=== PATIENT | male | born 1950 | race Hispanic/Latino ===

== ENCOUNTER 2019-11-29 21:13 | Emergency (ER) | payer MEDICARE ==
[2019-11-29 21:56] LABS: Urine Blood TRACE (NEG); Urine Glucose TRACE (NEG); Urine Protein 1+ (NEG); Urine Specific Gravity 1.025 (1.005-1.030)
[2019-11-29 22:03] LABS: Urine Bacteria <20 /HPF (NONE SEEN); Urine Culture Reflex Order REFLEXED; Urine RBC <5 /HPF (NONE SEEN)
[2019-11-29 23:14] LABS: Absolute Lymphocytes (CBC) 1.9 K/uL (0.7-4.9); Basophils % 0.4 % (0-1.3); Hematocrit 40.1 % (39.6-49.0); Lymphocytes % 18.1 % (15.3-44.8); RBC Red Blood Cell Count 4.86 M/uL (4.33-5.43)
[2019-11-29 23:25] LABS: ALT/SGPT 15 U/L (12-78); AST/SGOT 12 U/L (15-37); Albumin 3.9 g/dL (3.4-5.0); Alkaline Phosphatase 86 U/L (45-117); BUN Blood Urea Nitrogen 15 mg/dL (7-18); Bicarbonate 27 mmol/L (21-32); Bilirubin Direct < 0.1 mg/dL (0-0.2); Bilirubin Total 0.2 mg/dL (0.2-1.0); Glucose Level 203 mg/dL (74-106); Lipase 120 U/L (73-393); Protein, Total 7.9 g/dL (6.4-8.2); Sodium Level 140 mmol/L (136-145)
--- NOTE | 2019-11-29 23:51 | ER ---
Nurse's Notes [facility] Name: Evans Espinosa Age: 69 yrs Sex: Male : 1950 Arrival Date: 11/29/2019 Time: 21:[address] Private MD: Camilla Jara C Diagnosis: Calculus of ureter Presentation: 11/28 21:25 Chief complaint: Patient states: LLQ pain radiating to the L flank and L Lower back x 3 ca1 days, off and on. History of kidney stones. Reports burning with urination. Denies fever. Coronavirus screen: Proceed with normal triage. Patient denies a cough. Patient denies shortness of breath or difficulty breathing. Patient denies measured and/or subjective temperature greater than 100.4F prior to today's visit. Patient denies travel on a cruise ship or to a country the [facility] currently lists as an affected area. Patient denies contact with known and/or suspected case of COVID-19. Ebola Screen: Patient negative for fever greater than or equal to 101.5 degrees Fahrenheit, and additional compatible Ebola Virus Disease symptoms Patient denies exposure to infectious person. Patient denies travel to an Ebola-affected area in the 21 days before illness onset. No symptoms or risks identified at this time. Initial Sepsis Screen: Does the patient meet any 2 criteria? No. Patient's initial sepsis screen is negative. Does the patient have a suspected source of infection? No. Patient's initial sepsis screen is negative. Risk Assessment: Do you want to hurt yourself or someone else? Patient reports no desire to harm self or others. Onset of symptoms was November 29, 2019. 21:25 Method Of Arrival: Ambulatory ca1 21:25 Acuity: MEÑO 3 ca1 Historical: - Allergies: 21:30 No Known Allergies; ca1 - Home Meds: 21:30 Lisinopril Oral [Active]; Metoprolol Tartrate Oral [Active]; Metformin Oral [Active]; ca1 amlodipine oral [Active]; Aspirin Oral [Active]; - PMHx: 21:30 Diabetes - NIDDM; Hypertension; ca1 - PSHx: 21:30 None; ca1 - Immunization history:: Adult Immunizations up to date, Pneumococcal vaccine is not up to date, Flu vaccine is up to date. - Social history:: Smoking status: Patient denies any tobacco usage or history of. Screenin:00 Abuse screen: Denies threats or abuse. Denies injuries from another. Nutritional ls4 screening: No deficits noted. Tuberculosis screening: No symptoms or risk factors identified. Fall Risk None identified. Assessment: 22:00 General: Appears in no apparent distress. comfortable, Behavior is calm, cooperative. ls4 Pain:. Pain: Complains of pain in left lower quadrant Pain currently is 7 out of 10 on a pain scale. Neuro: No deficits noted. Cardiovascular: No deficits noted. Respiratory: No deficits noted. GI: Bowel sounds present X 4 quads. Abd is soft and non tender X 4 quads. Reports lower abdominal pain, Patient currently denies diarrhea, intolerance of fluids, intolerance of food, nausea, vomiting. : No deficits noted. No signs and/or symptoms were reported regarding the genitourinary system. Derm: No deficits noted. No signs and/or symptoms reported regarding the dermatologic system. Musculoskeletal: No deficits noted. No signs and/or symptoms reported regarding the musculoskeletal system. 23:00 Reassessment: Patient appears in no apparent distress at this time. Patient and/or ls4 family updated on plan of care and expected duration. Pain level reassessed. Patient is alert, oriented x 3, equal unlabored respirations, skin warm/dry/pink. Vital Signs: 21:25 BP 146 / 90; Pulse 83; Resp 17 S; Temp 97(TE); Pulse Ox 100% on R/A; Weight 97.98 kg ca1 (R); Height 5 ft. 9 in. (175.26 cm) (R); Pain 8/10; 22:30 BP 146 / 88; Pulse 74; Resp 16; Pulse Ox 99% on R/A; Pain 7/10; ls4 23:24 BP 153 / 79; Pulse 77; Resp 16; Temp 97.4(O); Pulse Ox 99% on R/A; Pain 7/10; ls4 21:25 Body Mass Index 31.90 (97.98 kg, 175.26 cm) ca1 ED Course: 21:18 Patient arrived in ED. mr 21:18 Camilla Jara MD is Private Physician. mr 21:22 Anuj Vizcaino MD is Attending Physician. tw4 21:28 Triage completed. ca1 21:30 Arm band placed on right wrist. ca1 21:45 Urine collected: clean catch specimen, cloudy, Amount Voided: 90mL Sent to lab. ca1 21:46 Urine Microscopic Only Sent. ca1 21:59 Urine Microscopic Only Sent. ca1 22:00 Patient has correct armband on for positive identification. Bed in low position. Call ls4 light in reach. Side rails up X 1. cafeteria cook on. Pulse ox on. NIBP on. Lights dimmed. Verbal reassurance given. Diet: Patient is NPO. 22:04 Sisi Pérez, RN is Primary Nurse. ls4 22:17 CT completed. Patient tolerated procedure well. Patient moved back from CT. bq 22:35 CT Stone Protocol In Process Unspecified. EDMS 23:10 No provider procedures requiring assistance completed. Inserted saline lock: 20 gauge ls4 in right antecubital area, using aseptic technique. Blood collected. 23:18 Basic Metabolic Panel Sent. ls4 23:19 Urine Culture Sent. ls4 23:50 Camilla Jara MD is Referral Physician. tw4 04 00:15 IV discontinued, intact, bleeding controlled, No redness/swelling at site. Pressure ls4 dressing applied. Administered Medications: 00:02 Drug: TORadol 30 mg Route: IVP; Site: left antecubital; ls4 00:22 Follow up: Response: No adverse reaction; Marked relief of symptoms ls4 Outcome: 11/28 23:50 Discharge ordered by . tw4 04/06 00:16 Patient left the ED. ls4 00:16 Condition: good ls4 00:16 Discharged to home ambulatory. ls4 00:16 Discharge instructions given to patient, Instructed on discharge instructions, follow up and referral plans. medication usage, Demonstrated understanding of instructions, follow-up care, medications. Signatures: Dispatcher [employer] [facility] Kate Bill mr ReddingMarivel Terrence, MD MD tw4 Sisi Pérez, RN RN ls4 Izabela Ross RN RN ca1
--- NOTE | 2019-11-29 23:51 | EDPHYS ---
Physician Documentation [facility] Name: Evans Espinosa Age: 69 yrs Sex: Male : 1950 Arrival Date: 11/29/2019 Time: 21:[address] Private MD: Camilla Jara C ED Physician Anuj Vizcaino HPI: 11/28 23:20 This 69 yrs old Male presents to ER via Ambulatory with complaints of Possible tw4 Kidney Stone. 23:20 The patient complains of pain in the left low back. The pain radiates to the left lower tw4 quadrant. Onset: The symptoms/episode began/occurred 3 day(s) ago. Modifying factors: The symptoms are alleviated by nothing. the symptoms are aggravated by nothing. Associated signs and symptoms: The patient has no apparent associated signs or symptoms. Severity of pain: At its worst the pain was moderate in the emergency department the pain has resolved. The patient has not experienced similar symptoms in the past. Historical: - Allergies: 21:30 No Known Allergies; ca1 - Home Meds: 21:30 Lisinopril Oral [Active]; Metoprolol Tartrate Oral [Active]; Metformin Oral [Active]; ca1 amlodipine oral [Active]; Aspirin Oral [Active]; - PMHx: 21:30 Diabetes - NIDDM; Hypertension; ca1 - PSHx: 21:30 None; ca1 - Immunization history:: Adult Immunizations up to date, Pneumococcal vaccine is not up to date, Flu vaccine is up to date. - Social history:: Smoking status: Patient denies any tobacco usage or history of. ROS: 23:44 Constitutional: Negative for fever, chills, and weight loss, Eyes: Negative for injury, tw4 pain, redness, and discharge, Cardiovascular: Negative for chest pain, palpitations, and edema, Respiratory: Negative for shortness of breath, cough, wheezing, and pleuritic chest pain, Skin: Negative for injury, rash, and discoloration, Neuro: Negative for headache, weakness, numbness, tingling, and seizure. 23:44 Abdomen/GI: Positive for abdominal pain, Negative for nausea and vomiting, nausea, vomiting, and diarrhea, nausea. 23:44 Back: Positive for flank pain, on the left. Exam: 23:43 Constitutional: This is a well developed, well nourished patient who is awake, alert, tw4 and in no acute distress. Head/Face: Normocephalic, atraumatic. Chest/axilla: Normal chest wall appearance and motion. Nontender with no deformity. No lesions are appreciated. Cardiovascular: Regular rate and rhythm with a normal S1 and S2. No gallops, murmurs, or rubs. Normal PMI, no JVD. No pulse deficits. Respiratory: Lungs have equal breath sounds bilaterally, clear to auscultation and percussion. No rales, rhonchi or wheezes noted. No increased work of breathing, no retractions or nasal flaring. Abdomen/GI: Soft, non-tender, with normal bowel sounds. No distension or tympany. No guarding or rebound. No evidence of tenderness throughout. 23:43 MS/ Extremity: Pulses equal, no cyanosis. Neurovascular intact. Full, normal range of motion. Neuro: Awake and alert, GCS 15, oriented to person, place, time, and situation. Cranial nerves II-XII grossly intact. Motor strength 5/5 in all extremities. Sensory grossly intact. Cerebellar exam normal. Normal gait. 23:43 Back: CVA tenderness, that is mild, is noted on the left. Vital Signs: 21:25 BP 146 / 90; Pulse 83; Resp 17 S; Temp 97(TE); Pulse Ox 100% on R/A; Weight 97.98 kg ca1 (R); Height 5 ft. 9 in. (175.26 cm) (R); Pain 8/10; 22:30 BP 146 / 88; Pulse 74; Resp 16; Pulse Ox 99% on R/A; Pain 7/10; ls4 23:24 BP 153 / 79; Pulse 77; Resp 16; Temp 97.4(O); Pulse Ox 99% on R/A; Pain 7/10; ls4 21:25 Body Mass Index 31.90 (97.98 kg, 175.26 cm) ca1 MDM: 22:00 Patient medically screened. 11/28 21:23 Order name: Basic Metabolic Panel 11/28 21:23 Order name: CBC with Diff; Complete Time: 23:44 11/28 23:47 Interpretation: Normal except: HGB 13.3; MATEO% 75.6. 11/28 21:23 Order name: Creatinine for Radiology; Complete Time: 23:44 4 11/28 23:47 Interpretation: Normal except: CRE 1.61; GFR 43. tw4 11/28 21:23 Order name: Hepatic Function; Complete Time: 23:44 tw4 11/28 23:47 Interpretation: Normal except: AST 12; GLOB 4.0; A/G 1.0. tw4 11/28 21:23 Order name: Lipase; Complete Time: 23:44 tw 11/28 23:48 Interpretation: Within normal limits: LIP 120. tw4 11/28 21:23 Order name: Basic Metabolic Panel; Complete Time: 23:44 EDMS 11/28 23:47 Interpretation: Normal except: GLUC 203; CRE 1.64; GFR 42. tw 11/28 21:23 Order name: IV Saline Lock; Complete Time: 23:18 [facility] 11/28 21:23 Order name: Labs collected and sent; Complete Time: 23:18 [facility] 11/28 21:23 Order name: CT Stone Protocol [facility] 11/28 21:45 Order name: Urine Dipstick-Ancillary (obtain specimen); Complete Time: 21:45 ca1 11/28 21:45 Order name: Urine Microscopic Only; Complete Time: 22:23 ca1 11/28 22:23 Interpretation: Normal except: UWBC 10-20. [facility] 11/28 21:47 Order name: Urine Dipstick--Ancillary (enter results); Complete Time: 23:44 ar5 11/28 23:47 Interpretation: Normal except: UBLD TRACE; UPROT 1+; UESTR 1+. [facility] 11/28 22:05 Order name: Urine Culture EDMS Administered Medications: 11/29 00:02 Drug: TORadol 30 mg Route: IVP; Site: left antecubital; ls4 00:22 Follow up: Response: No adverse reaction; Marked relief of symptoms ls4 Disposition: 11/29/19 23:50 Discharged to Home. Impression: Calculus of ureter. - Condition is Stable. - Discharge Instructions: Renal Colic, Kidney Stones, [id number]. - Prescriptions for Ibuprofen 800 mg Oral Tablet - take 1 tablet by ORAL route every 8 hours As needed take with food; 30 tablet. Tylenol- Codeine #3 300-30 mg Oral Tablet - take 2 tablet by ORAL route every 6 hours As needed; 30 tablet. Zofran 4 mg Oral Tablet - take 1 tablet by ORAL route every 12 hours As needed; 6 tablet. Flomax 0.4 mg Oral Capsule, Sust. Release 24 hr - take 1 capsule by ORAL route once daily 1/2 hour following the same meal each day; 30 capsule. - Medication Reconciliation Form, Thank You Letter, Antibiotic Education, Prescription Opioid Use form. - Follow up: Camilla Jara MD; When: Upon discharge from the Emergency Department; Reason: Recheck today's complaints, Continuance of care, Re-evaluation by your physician. - Problem is new. - Symptoms have improved. Signatures: Dispatcher [employer] EDMS Anuj Vizcaino MD MD tw4 Sisi Pérez RN RN ls4 Izabela Ross RN RN ca1 Corrections: (The following items were deleted from the chart) 11/28 23:44 23:20 Constitutional: Negative for fever, chills, and weight loss, Eyes: Negative for tw4 injury, pain, redness, and discharge, Cardiovascular: Negative for chest pain, palpitations, and edema, Respiratory: Negative for shortness of breath, cough, wheezing, and pleuritic chest pain, Abdomen/GI: Negative for abdominal pain, nausea, vomiting, diarrhea, and constipation, Back: Negative for injury and pain, MS/Extremity: Negative for injury and deformity, Skin: Negative for injury, rash, and discoloration, tw4 11/29 00:16 11/28 23:50 11/29/2019 23:50 Discharged to Home. Impression: Calculus of ureter. ls4 Condition is Stable. Forms are Medication Reconciliation Form, Thank You Letter, Antibiotic Education, Prescription Opioid Use. Follow up: Camilla Jara; When: Upon discharge from the Emergency Department; Reason: Recheck today's complaints, Continuance of care, Re-evaluation by your physician. Problem is new. Symptoms have improved. tw4
[2019-11-30] MEDS ORDERED: KETOROLAC 30 MG/ML INJ ONE (00:02)
[2019-11-30 00:53] VITALS: O2SAT 99
[2019-11-30 00:54] VITALS: BP 153/79; TEMP 97.4
--- NOTE | 2019-11-30 11:07 | RAD REPORT ---
EXAM DESCRIPTION: Stone Protocol CLINICAL HISTORY: 69 years Male ABD PAIN COMPARISON: None. TECHNIQUE: Contiguous axial images obtained through the abdomen and pelvis following IV contrast. Re formatted images obtained. This exam was performed according to our department optimization program which includes automated exp osure control, adjustment of the mA and/or kv according to patient size and/or use of iterative recon struction technique. FINDINGS: Nodular lesion in the mid left lung measuring 0.45 cm in mean diameter. This is visualized on axial i mage . Small hiatal hernia. The liver appears unremarkable. The spleen and pancreas appear unremarkable. No adrenal masses. There is mild left hydronephrosis and hydroureter. There is a 0.4 cm calculus in the left lower urete r. There are small bilateral nonobstructing renal calculi. The gallbladder is visualized. Mild atherosclerotic calcifications. No aneurysmal dilatation of the aorta. No bowel obstruction. The appendix appears unremarkable. No significant free pelvic fluid. There is wall thickening in the urinary bladder which could b e from chronic bladder outlet obstruction. Clinical and laboratory correlation recommended to exclude the possibility of cystitis. Small fat-containing left inguinal hernia. Bilateral pars defects at L5-S1. IMPRESSION: There is mild left hydronephrosis and hydroureter with a 0.4 cm calculus in the left lower ureter. There are bilateral nonobstructing renal calculi. There is wall thickening in the urinary bladder which could be from chronic outlet obstruction. Clini sharita and laboratory correlation recommended to exclude the possibility of cystitis. 4.5 mm solid pulmonary nodule detected on incomplete chest CT. No routine follow-up imaging is recomm ended. These guidelines do not apply to immunocompromised patients and patients with cancer. Follow up in pa tients with significant comorbidities as clinically warranted. For lung cancer screening, adhere to L emilia-RADS guidelines. Reference: Radiology. 2017; 284(1):228-43. Electronically signed by: Jason Summers MD 11/29/2019 10:52 PM CDT Due to temporary technical issues with the PACS/Fluency reporting system, reports are being signed by the in house radiologist as a courtesy to ensure prompt reporting. The interpreting radiologist is f kirkly responsible for the content of the report.
== END 2019-11-30 00:16 | disposition home or self-care (01) ==
LOC: ER 21:13
DX: N20.1 Calculus of ureter (principal); I10 Essential (primary) hypertension; E11.9 Type 2 diabetes mellitus without complications; Z79.82 Long term (current) use of aspirin
CPT/HCPCS: 36415; 74176; 76377; 80048; 80076; 81003; 81015; 83690; 85025; 87086; 87088; 96374; 99285

== ENCOUNTER 2020-06-09 22:42 | Emergency (ER) | payer MEDICARE ==
--- NOTE | 2020-06-09 23:14 | ER ---
Nurse's Notes [facility] Name: Evans Espinosa Age: 69 yrs Sex: Male : 1950 Arrival Date: 06/09/2020 Time: 22:45 Bed 13 Private MD: Diagnosis: Zoster [herpes zoster];Zoster without complications;Type 2 diabetes mellitus Presentation: 06/09 22:57 Chief complaint: Patient states: he is having abdominal pain and burning on left side bb of abdomen and left side of back with a small cluster of vesicles on the back x 2 days. Coronavirus screen: At this time, the client does not indicate any symptoms associated with coronavirus-19. Ebola Screen: No symptoms or risks identified at this time. Initial Sepsis Screen: Does the patient meet any 2 criteria? No. Patient's initial sepsis screen is negative. Does the patient have a suspected source of infection? No. Patient's initial sepsis screen is negative. Risk Assessment: Do you want to hurt yourself or someone else? Patient reports no desire to harm self or others. Onset of symptoms was June 07, 2020. 22:57 Method Of Arrival: Ambulatory bb 22:57 Acuity: MEÑO 3 bb Historical: - Allergies: 23:01 No Known Allergies; bb - Home Meds: 23:01 amlodipine oral [Active]; Aspirin Oral [Active]; lisinopril Oral [Active]; Metformin bb Oral [Active]; Metoprolol Tartrate Oral [Active]; insulin [Active]; - PMHx: 23:01 Diabetes - NIDDM; Hypertension; bb - Immunization history:: Adult Immunizations up to date. - Social history:: Smoking status: Patient denies any tobacco usage or history of. - Family history:: not pertinent. Screenin:21 Abuse screen: Denies threats or abuse. Denies injuries from another. Nutritional wh screening: No deficits noted. Tuberculosis screening: No symptoms or risk factors identified. Fall Risk None identified. Assessment: 23:10 General: Appears in no apparent distress. Behavior is calm, cooperative, appropriate wh for age. Pain: Complains of pain in posterior aspect of left lateral abdomen and anterior aspect of left lateral abdomen. Neuro: Level of Consciousness is awake, alert, obeys commands, Oriented to person, place, time, situation, Appropriate for age. Cardiovascular: Capillary refill < 3 seconds. Respiratory: Airway is patent Respiratory effort is even, unlabored, Respiratory pattern is regular, symmetrical. GI: Bowel sounds present X 4 quads. Abd is soft and non tender. : No signs and/or symptoms were reported regarding the genitourinary system. EENT: No signs and/or symptoms were reported regarding the EENT system. Derm: Skin is intact, is healthy with good turgor, Skin is pink, warm \T\ dry. normal, Rash noted that is vesicular, on posterior aspect of left lateral abdomen and anterior aspect of left lateral abdomen. Musculoskeletal: Circulation, motion, and sensation intact. Vital Signs: 22:57 BP 141 / 90; Pulse 65; Resp 16 S; Temp 97.9(O); Pulse Ox 99% on R/A; Weight 93.44 kg bb (R); Height 5 ft. 9 in. (175.26 cm) (R); Pain 7/10; 22:57 Body Mass Index 30.42 (93.44 kg, 175.26 cm) ED Course: 22:45 Patient arrived in ED. cl3 22:57 Chacorta Newton MD is Attending Physician. [facility] 23:00 Triage completed. 23:01 Arm band placed on Patient placed in an exam room, on a stretcher, on pulse oximetry. Family accompanied patient. 23:07 William Alegria is Primary Nurse. 23:12 Dieudonne Abernathy MD is Referral Physician. [facility] 23:22 Patient has correct armband on for positive identification. Bed in low position. Call light in reach. Side rails up X 1. Pulse ox on. NIBP on. 23:22 No provider procedures requiring assistance completed. Patient did not have IV access during this emergency room visit. Administered Medications: 23:20 Drug: [place] (7.5 mg-325 mg) 1 tabs {Note: RASS 0.} Route: PO; 23:20 Drug: valACYclovir 1000 mg Route: PO; Outcome: 23:13 Discharge ordered by . [facility] 23:22 Discharged to home ambulatory, with family. 23:22 Condition: stable 23:22 Discharge instructions given to patient, family, Instructed on discharge instructions, follow up and referral plans. no drinking with medication, no driving heavy equipment, medication usage, POC Demonstrated understanding of instructions, follow-up care, medications, POC Prescriptions given X 3. 23:25 Patient left the ED. bb Signatures: Chacorta Newton MD MD cha Ballard, Brenda, RN RN William Tobar Charde cl3
--- NOTE | 2020-06-09 23:14 | EDPHYS ---
Physician Documentation [facility] Name: Evans Espinosa Age: 69 yrs Sex: Male : 1950 Arrival Date: 06/09/2020 Time: 22:45 Bed 13 Private MD: ED Physician Chacorta Newton HPI: 06/09 23:08 This 69 yrs old Male presents to ER via Ambulatory with complaints of yolande Abdominal Pain, Rash. 23:08 The patient's rash thought to be caused by an unknown cause. The rash is located on the yolande left low back. The rash can be described as vesicular. Onset: The symptoms/episode began/occurred 3 day(s) ago. Associated signs and symptoms: Pertinent positives: burning sensation. Severity of symptoms: At their worst the symptoms were mild in the emergency department the symptoms are unchanged. Treatment given at home: none. The patient has not experienced similar symptoms in the past. Historical: - Allergies: 23:01 No Known Allergies; bb - Home Meds: 23:01 amlodipine oral [Active]; Aspirin Oral [Active]; lisinopril Oral [Active]; Metformin bb Oral [Active]; Metoprolol Tartrate Oral [Active]; insulin [Active]; - PMHx: 23:01 Diabetes - NIDDM; Hypertension; bb - Immunization history:: Adult Immunizations up to date. - Social history:: Smoking status: Patient denies any tobacco usage or history of. - Family history:: not pertinent. ROS: 23:08 Constitutional: Negative for fever, chills, and weight loss, Eyes: Negative for injury, yolande pain, redness, and discharge, ENT: Negative for injury, pain, and discharge, Neck: Negative for injury, pain, and swelling, Cardiovascular: Negative for chest pain, palpitations, and edema, Respiratory: Negative for shortness of breath, cough, wheezing, and pleuritic chest pain, Abdomen/GI: Negative for abdominal pain, nausea, vomiting, diarrhea, and constipation, Back: Negative for injury and pain, : Negative for injury, bleeding, discharge, and swelling, MS/Extremity: Negative for injury and deformity, Neuro: Negative for headache, weakness, numbness, tingling, and seizure, Psych: Negative for depression, anxiety, suicide ideation, homicidal ideation, and hallucinations, Allergy/Immunology: Negative for hives, rash, and allergies, Endocrine: Negative for neck swelling, polydipsia, polyuria, polyphagia, and marked weight changes, Hematologic/Lymphatic: Negative for swollen nodes, abnormal bleeding, and unusual bruising. 23:08 Skin: Positive for rash, of the anterior aspect of left lateral abdomen, posterior aspect of left lateral abdomen and left lower quadrant. Exam: 23:08 Constitutional: This is a well developed, well nourished patient who is awake, alert, yolande and in no acute distress. Head/Face: Normocephalic, atraumatic. Eyes: Pupils equal round and reactive to light, extra-ocular motions intact. Lids and lashes normal. Conjunctiva and sclera are non-icteric and not injected. Cornea within normal limits. Periorbital areas with no swelling, redness, or edema. ENT: Nares patent. No nasal discharge, no septal abnormalities noted. Tympanic membranes are normal and external auditory canals are clear. Oropharynx with no redness, swelling, or masses, exudates, or evidence of obstruction, uvula midline. Mucous membranes moist. Neck: Trachea midline, no thyromegaly or masses palpated, and no cervical lymphadenopathy. Supple, full range of motion without nuchal rigidity, or vertebral point tenderness. No Meningismus. Chest/axilla: Normal chest wall appearance and motion. Nontender with no deformity. No lesions are appreciated. Cardiovascular: Regular rate and rhythm with a normal S1 and S2. No gallops, murmurs, or rubs. Normal PMI, no JVD. No pulse deficits. Respiratory: Lungs have equal breath sounds bilaterally, clear to auscultation and percussion. No rales, rhonchi or wheezes noted. No increased work of breathing, no retractions or nasal flaring. Abdomen/GI: Soft, non-tender, with normal bowel sounds. No distension or tympany. No guarding or rebound. No evidence of tenderness throughout. Back: No spinal tenderness. No costovertebral tenderness. Full range of motion. Male : Normal genitalia with no discharge or lesions. MS/ Extremity: Pulses equal, no cyanosis. Neurovascular intact. Full, normal range of motion. Neuro: Awake and alert, GCS 15, oriented to person, place, time, and situation. Cranial nerves II-XII grossly intact. Motor strength 5/5 in all extremities. Sensory grossly intact. Cerebellar exam normal. Normal gait. Psych: Awake, alert, with orientation to person, place and time. Behavior, mood, and affect are within normal limits. 23:08 Skin: zoster, on the posterior aspect of left lateral abdomen and left lower quadrant. Vital Signs: 22:57 BP 141 / 90; Pulse 65; Resp 16 S; Temp 97.9(O); Pulse Ox 99% on R/A; Weight 93.44 kg bb (R); Height 5 ft. 9 in. (175.26 cm) (R); Pain 7/10; 22:57 Body Mass Index 30.42 (93.44 kg, 175.26 cm) bb MDM: 22:58 Patient medically screened. yolande 23:10 Differential diagnosis: impetigo, varicella. Data reviewed: vital signs, nurses notes. 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 rate is 65 beats/min, rhythm is regular, Pulse oximetry: on room air is 99 %. Counseling: I had a detailed discussion with the patient and/or guardian regarding: the historical points, exam findings, and any diagnostic results supporting the discharge/admit diagnosis, the need for outpatient follow up, for definitive care, an computer systems information director, a neurologist. Administered Medications: 23:20 Drug: Rowan (7.5 mg-325 mg) 1 tabs {Note: RASS 0.} Route: PO; 23:20 Drug: valACYclovir 1000 mg Route: PO; Disposition: 06/09/20 23:13 Discharged to Home. Impression: Zoster [herpes zoster], Zoster without complications, Type 2 diabetes mellitus. - Condition is Stable. - Discharge Instructions: Type 2 Diabetes Mellitus, Diagnosis, Adult, Shingles, Shingles, [id number], Type 2 Diabetes Mellitus, Diagnosis, Adult, [id number]. - Prescriptions for gabapentin 300 mg Oral capsule - take 2 capsule by ORAL route 2 times per day; 30 capsule. Tylenol- Codeine #3 300-30 mg Oral Tablet - take 2 tablets by ORAL route every 6 hours As needed; 20 tablet. Valtrex 1 g Oral Tablet - take 1 tablet by ORAL route every 8 hours for 7 days; 21 tablet. - Medication Reconciliation Form, Thank You Letter, Antibiotic Education, Prescription Opioid Use form. - Follow up: Private Physician; When: 2 - 3 days; Reason: Recheck today's complaints, Continuance of care, Re-evaluation by your physician. Follow up: Dieudonne Abernathy MD; When: 2 - 3 days; Reason: Recheck today's complaints, Re-evaluation by your physician. - Problem is new. - Symptoms have improved. Signatures: Chacorta Newton MD MD cha Ballard, Brenda, RN RN bb William Alegria Corrections: (The following items were deleted from the chart) 23:14 23:13 06/09/2020 23:13 Discharged to Home. Impression: Zoster [herpes zoster]; Zoster yolande without complications. Condition is Stable. Forms are Medication Reconciliation Form, Thank You Letter, Antibiotic Education, Prescription Opioid Use. Follow up: Private Physician; When: 2 - 3 days; Reason: Recheck today's complaints, Continuance of care, Re-evaluation by your physician. Follow up: Dieudonne Abernathy; When: 2 - 3 days; Reason: Recheck today's complaints, Re-evaluation by your physician. Problem is new. Symptoms have improved. [facility] 23:25 23:14 06/09/2020 23:13 Discharged to Home. Impression: Zoster [herpes zoster]; Zoster bb without complications; Type 2 diabetes mellitus. Condition is Stable. Forms are Medication Reconciliation Form, Thank You Letter, Antibiotic Education, Prescription Opioid Use. Follow up: Private Physician; When: 2 - 3 days; Reason: Recheck today's complaints, Continuance of care, Re-evaluation by your physician. Follow up: Dieudonne Abernathy; When: 2 - 3 days; Reason: Recheck today's complaints, Re-evaluation by your physician. Problem is new. Symptoms have improved. yolande
[2020-06-09] MEDS ORDERED: HYDROCODONE/APAP 7.5/325 MG TAB ONE (23:26)
[2020-06-09] MEDS ORDERED: VALACYCLOVIR 500 MG TAB ONE (23:27)
[2020-06-09 23:48] VITALS: BP 141/90; TEMP 97.9; O2SAT 99
== END 2020-06-09 23:25 | disposition home or self-care (01) ==
LOC: ER 22:42
DX: B02.9 Zoster without complications (principal); E11.9 Type 2 diabetes mellitus without complications; I10 Essential (primary) hypertension; Z79.82 Long term (current) use of aspirin
CPT/HCPCS: 99283

== ENCOUNTER 2021-03-28 20:33 | Inpatient (IN) | payer MEDICARE ==
[2021-03-28 21:22] LABS: Absolute Lymphocytes (CBC) 1.3 K/uL (0.7-4.9); Basophils % 0.3 % (0-1.3); Hematocrit 35.9 % (39.6-49.0); Lymphocytes % 26.1 % (15.3-44.8); MPV 8.2 fL (7.6-11.3); Protime INR 1.1; RBC Red Blood Cell Count 4.32 M/uL (4.33-5.43)
--- NOTE | 2021-03-28 21:25 | RAD REPORT ---
EXAM DESCRIPTION: CT - Head Brain Wo Cont - 03/28/2021 9:18 pm CLINICAL HISTORY: Syncope COMPARISON: None TECHNIQUE: Computed axial tomography of the head was obtained. IV contrast was not requested. All CT scans are performed using dose optimization technique as appropriate and may include automated exposure control or mA/KV adjustment according to patient size. FINDINGS: An intracranial bleed is not seen . The ventricles are normal in caliber. No extra-axial fluid collection is noted. Bilateral basal ganglia calcifications likely idiopathic Fluid within the sinuses/ mastoids is not seen. IMPRESSION: No acute intracranial abnormality is seen. If patient's symptoms persist MRI of the bra in would be recommended.
[2021-03-28 21:28] LABS: ALT/SGPT 87 U/L (12-78); AST/SGOT 91 U/L (15-37); Albumin 3.2 g/dL (3.4-5.0); Alkaline Phosphatase 61 U/L (45-117); BUN Blood Urea Nitrogen 28 mg/dL (7-18); Bicarbonate 22 mmol/L (21-32); Bilirubin Direct 0.1 mg/dL (0-0.2); Bilirubin Total 0.3 mg/dL (0.2-1.0); Glucose Level 176 mg/dL (74-106); Lipase 401 U/L (73-393); Magnesium 1.8 mg/dL (1.8-2.4); NT PRO-BNP 65 pg/mL (<125); Potassium 4.4 mmol/L (3.5-5.1); Protein, Total 7.4 g/dL (6.4-8.2); Sodium Level 136 mmol/L (136-145); Troponin (Emerg Dept Use Only) < 0.02 ng/mL (0.0-0.045)
--- NOTE | 2021-03-28 21:43 | RAD REPORT ---
EXAM DESCRIPTION: Domenico Single View03/28/2021 9:00 pm CLINICAL HISTORY: Fever COMPARISON: none FINDINGS: [id number] bilateral pulmonary opacities. Heart is normal size IMPRESSION: [id number] bilateral pulmonary opacities may represent pneumonia
[2021-03-28] MEDS ORDERED: NA CHLORIDE 0.9% 1,000 ML ONE (22:50)
[2021-03-28] MEDS ORDERED: ONDANSETRON 4 MG/2 ML VIAL ONE (22:50)
[2021-03-28] MEDS ORDERED: ACETAMINOPHEN 325 MG TABLET ONE (22:50)
[2021-03-28] MEDS ORDERED: AZITHROMYCIN 500 MG INJ IVPB ONE (23:06)
[2021-03-28] MEDS ORDERED: CEFTRIAXONE/SWI 1gm 1 GM/10 ML SYR ONE (23:06)
[2021-03-28] MEDS ORDERED: NA CHLORIDE 0.9% 250 ML ONE (23:06)
--- NOTE | 2021-03-28 23:47 | ER ---
Nurse's Notes [facility] Name: Evans Espinosa Age: 70 yrs Sex: Male : 1950 Arrival Date: 03/28/2021 Time: 20:37 Bed 2 Private MD: Diagnosis: Syncope;Pneumonia due to SARS-associated coronavirus Presentation: 03/28 20:46 Chief complaint: EMS states: Reports pt has been having syncopal episodes EMS reported ea BP at home were 70s over 30s, positive orthostatic hypotension, pt has been vomiting. 20 G LAC initiated, BGL 191 92% RA. Coronavirus screen: At this time, the client does not indicate any symptoms associated with coronavirus-19. Ebola Screen: No symptoms or risks identified at this time. Initial Sepsis Screen: Does the patient meet any 2 criteria? No. Patient's initial sepsis screen is negative. Does the patient have a suspected source of infection? No. Patient's initial sepsis screen is negative. Risk Assessment: Do you want to hurt yourself or someone else? Patient reports no desire to harm self or others. Onset of symptoms was March 28, 2021. 20:46 Method Of Arrival: EMS: [facility] ea 20:46 Acuity: MEÑO 3 ea Historical: - Allergies: 20:51 No Known Allergies; ea - Home Meds: 20:49 amlodipine oral [Active]; Aspirin Oral [Active]; insulin [Active]; lisinopril Oral ea [Active]; Metformin Oral [Active]; Metoprolol Tartrate Oral [Active]; - PMHx: 20:49 Hypertension; Diabetes - NIDDM; ea - Immunization history:: Adult Immunizations up to date. - Social history:: Smoking status: unknown. Screenin:48 Abuse screen: Denies threats or abuse. Nutritional screening: No deficits noted. ea Tuberculosis screening: No symptoms or risk factors identified. Fall Risk IV access (20 points). Assessment: 20:51 General: Appears in no apparent distress. Behavior is appropriate for age. Pain: Denies ea pain. Neuro: Level of Consciousness is awake, alert, obeys commands, Oriented to person, place, time. Cardiovascular: Patient's skin is warm and dry. Respiratory: Airway is patent Respiratory effort is even, unlabored, Respiratory pattern is regular, symmetrical. Derm: Skin is dry, Skin is pale, Skin temperature is warm. 22:56 Reassessment: Pt did not tolerate position change reported he felt dizzy. ea 23:00 Reassessment: Patient and/or family updated on plan of care and expected duration. Pain ea level reassessed. Patient is alert, oriented x 3, equal unlabored respirations, skin warm/dry/pink. 03/29 00:00 Reassessment: Patient and/or family updated on plan of care and expected duration. Pain ea level reassessed. Patient is alert, oriented x 3, equal unlabored respirations, skin warm/dry/pink. 01:57 Reassessment: Patient and/or family updated on plan of care and expected duration. Pain ea level reassessed. Patient is alert, oriented x 3, equal unlabored respirations, skin warm/dry/pink. Vital Signs: 03/28 20:46 BP 104 / 75; Pulse 82; Resp 16; Temp 100.4; Pulse Ox 95% on R/A; Weight 95.25 kg; ea Height 5 ft. 9 in. (175.26 cm); Pain 0/10; 03/29 01:57 BP 117 / 67; Pulse 69; Resp 21; Temp 99; Pulse Ox 98% ; ea 03/28 20:46 Body Mass Index 31.01 (95.25 kg, 175.26 cm) ea ED Course: 03/28 20:37 Patient arrived in ED. jb4 20:39 Lv Ochoa MD is Attending Physician. mh7 20:45 Elmira Saeed, RN is Primary Nurse. ea 20:48 Triage completed. ea 20:48 Arm band placed on right wrist. Patient placed in an exam room, on a stretcher, on ea pulse oximetry. EKG completed in triage. Results shown to MD. 20:48 Patient has correct armband on for positive identification. Bed in low position. Call ea light in reach. Side rails up X2. monitor tech on. Pulse ox on. NIBP on. 20:49 Maintain EMS IV. Dressing intact. Good blood return noted. Site clean \T\ dry. Gauge \T\ ea site: 20 LAC. 21:00 XRAY Chest (1 view) In Process Unspecified. EDMS 21:17 CT Head Brain wo Cont In Process Unspecified. EDMS 22:36 US Abdomen Limited In Process Unspecified. EDMS 23:45 Camilla Jara MD is Hospitalizing Provider. [facility] 03/29 01:56 No provider procedures requiring assistance completed. Patient admitted, IV remains in ea place. Administered Medications: 03/28 22:39 Drug: Zofran (Ondansetron) 4 mg Route: IVP; Site: left antecubital; ea 23:44 Follow up: Response: No adverse reaction ea 22:39 Drug: NS 0.9% 1000 ml Route: IV; Rate: 1000 ml; Site: left antecubital; ea 22:55 Drug: Rocephin (cefTRIAXone) 1 grams Route: IV; Rate: per protocol; Site: left ea antecubital; 22:55 Drug: AZITHromycin 500 mg Route: IVPB; Infused Over: 1 hrs; Site: left antecubital; ea 22:56 Drug: Tylenol 650 mg Route: PO; ea 23:44 Follow up: Response: No adverse reaction 03/29 00:21 Drug: SOLU-Medrol (methylPrednisoLONE) 80 mg Route: IVP; Site: left antecubital; ea 00:21 Follow up: Response: No adverse reaction ea Outcome: 03/28 23:46 Decision to Hospitalize by Provider. [facility] 03/29 01:56 Admitted to ER Hold. Please see [facility] for further documentation. ea Condition: stable Instructed on the need for admit. 19:41 Patient left the ED. jb4 Signatures: Dispatcher [employer] EDMS Praveen Dle Rosario RN RN jb4 Elmira Saeed RN RN ea Holmes, Maurice, MD MD mh7
--- NOTE | 2021-03-28 23:47 | EDPHYS ---
Physician Documentation [facility] Name: Evans Espinosa Age: 70 yrs Sex: Male : 1950 Arrival Date: 03/28/2021 Time: 20:37 Bed 2 Private MD: ED Physician Lv Ochoa HPI: 03/28 20:45 This 70 yrs old Male presents to ER via EMS with complaints of Syncope. mh7 20:45 The patient has experienced syncope, collapsed. Onset: The symptoms/episode mh7 began/occurred just prior to arrival, today. Duration: This was a single episode, that lasted an unknown period of time. Context: the episode(s) was witnessed, by no one, occurred at home, occurred while the patient was standing, Just prior to the episode the patient experienced dizziness, nausea, vomiting. Associated injury: The patient did not suffer any apparent associated injury. Associated signs and symptoms: Pertinent positives: diarrhea, dizziness, nausea, vomiting, Pertinent negatives: abdominal pain, agitation, ataxia, blurred vision, chest pain, combativeness, confusion, diaphoresis, headache, numbness, palpitations, seizure, shortness of breath, tingling, vertigo, weakness. Current symptoms: Currently, the patient is not experiencing any symptoms, the patient feels back to baseline, no decreased level of consciousness, no confusion, no dysphasia, no headache, no paralysis, no visual changes. Historical: - Allergies: 20:51 No Known Allergies; ea - Home Meds: 20:49 amlodipine oral [Active]; Aspirin Oral [Active]; insulin [Active]; lisinopril Oral ea [Active]; Metformin Oral [Active]; Metoprolol Tartrate Oral [Active]; - PMHx: 20:49 Hypertension; Diabetes - NIDDM; ea - Immunization history:: Adult Immunizations up to date. - Social history:: Smoking status: unknown. ROS: 20:45 Constitutional: Negative for fever, chills, and weight loss, Eyes: Negative for injury, mh7 pain, redness, and discharge, ENT: Negative for injury, pain, and discharge, Neck: Negative for injury, pain, and swelling, Cardiovascular: Negative for chest pain, palpitations, and edema, Respiratory: Negative for shortness of breath, cough, wheezing, and pleuritic chest pain, Back: Negative for injury and pain, : Negative for injury, bleeding, discharge, and swelling, MS/Extremity: Negative for injury and deformity, Skin: Negative for injury, rash, and discoloration, Neuro: Negative for headache, weakness, numbness, tingling, and seizure, Psych: Negative for depression, anxiety, suicide ideation, homicidal ideation, and hallucinations, Allergy/Immunology: Negative for hives, rash, and allergies, Endocrine: Negative for neck swelling, polydipsia, polyuria, polyphagia, and marked weight changes, Hematologic/Lymphatic: Negative for swollen nodes, abnormal bleeding, and unusual bruising. Exam: 20:45 Constitutional: This is a well developed, well nourished patient who is awake, alert, mh7 and in no acute distress. Head/Face: Normocephalic, atraumatic. Eyes: Pupils equal round and reactive to light, extra-ocular motions intact. Lids and lashes normal. Conjunctiva and sclera are non-icteric and not injected. Cornea within normal limits. Periorbital areas with no swelling, redness, or edema. Neck: Trachea midline, no thyromegaly or masses palpated, and no cervical lymphadenopathy. Supple, full range of motion without nuchal rigidity, or vertebral point tenderness. No Meningismus. Chest/axilla: Normal chest wall appearance and motion. Nontender with no deformity. No lesions are appreciated. Cardiovascular: Regular rate and rhythm with a normal S1 and S2. No gallops, murmurs, or rubs. Normal PMI, no JVD. No pulse deficits. Respiratory: Lungs have equal breath sounds bilaterally, clear to auscultation and percussion. No rales, rhonchi or wheezes noted. No increased work of breathing, no retractions or nasal flaring. Abdomen/GI: Soft, non-tender, with normal bowel sounds. No distension or tympany. No guarding or rebound. No evidence of tenderness throughout. Back: No spinal tenderness. No costovertebral tenderness. Full range of motion. Skin: Warm, dry with normal turgor. Normal color with no rashes, no lesions, and no evidence of cellulitis. MS/ Extremity: Pulses equal, no cyanosis. Neurovascular intact. Full, normal range of motion. 20:45 Psych: Awake, alert, with orientation to person, place and time. Behavior, mood, and affect are within normal limits. 20:45 Neuro: Orientation: is normal, Mentation: is normal, Memory: is normal, Cranial nerves: grossly normal, Cerebellar function: is grossly normal, Motor: is normal, Sensation: is normal, Gait: not tested. seizure activity, is not displayed by the patient, Abnormal movements: there are no abnormal movements. Vital Signs: 20:46 BP 104 / 75; Pulse 82; Resp 16; Temp 100.4; Pulse Ox 95% on R/A; Weight 95.25 kg; ea Height 5 ft. 9 in. (175.26 cm); Pain 0/10; 03/29 01:57 BP 117 / 67; Pulse 69; Resp 21; Temp 99; Pulse Ox 98% ; ea 03/28 20:46 Body Mass Index 31.01 (95.25 kg, 175.26 cm) ea MDM: 03/28 23:43 Differential Diagnosis: cardiac arrhythmia, drug effect, idiopathic syncope, sepsis, mh7 vasovagal episode. Data reviewed: vital signs, nurses notes, EMS record, old medical records, lab test result(s), cardiac enzymes, CBC, electrolytes, Flu: negative urinalysis, EKG, radiologic studies, CT scan, plain films, ultrasound. Data interpreted: Pulse oximetry: on room air is 95 %. Interpretation: normal. Counseling: I had a detailed discussion with the patient and/or guardian regarding: the historical points, exam findings, and any diagnostic results supporting the discharge/admit diagnosis, lab results, radiology results, the need for further work-up and treatment in the hospital. Response to treatment: the patient's symptoms have markedly improved after treatment. 23:46 Patient medically screened. 7 03/28 20:38 Order name: Basic Metabolic Panel; Complete Time: 22: [facility] 03/28 20:38 Order name: CBC with Diff; Complete Time: 22: [facility] 03/28 20:38 Order name: LFT's; Complete Time: 22: [facility] 03/28 20:38 Order name: Magnesium; Complete Time: 22: [facility] 03/28 20:38 Order name: NT PRO-BNP; Complete Time: 22: [facility] 03/28 20:38 Order name: PT-INR; Complete Time: 22: [facility] 03/28 20:38 Order name: Troponin (emerg Dept Use Only); Complete Time: 22:09 [facility] 03/28 20:50 Order name: COVID-19 : Document "Date of Symptom Onset" if Symptomatic. 03/28 20:53 Order name: Blood Culture Adult (2) [facility] 03/28 20:53 Order name: Lactate [facility] 03/28 20:53 Order name: Procalcitonin [facility] 03/28 20:53 Order name: Influenza Screen (a \\T\\ B); Complete Time: 23:41 [facility] 03/28 20:54 Order name: Blood Culture [facility] 03/28 20:54 Order name: Lactate; Complete Time: 23:41 EDMS 03/28 20:54 Order name: Procalcitonin; Complete Time: 22:09 EDMS 03/28 21:01 Order name: Lipase; Complete Time: 22:09 EDMS 03/28 22:40 Order name: SARS-COV-2 RT PCR; Complete Time: 23:41 EDMS 03/29 00:14 Order name: Basic Metabolic Panel EDMS 03/29 00:14 Order name: Basic Metabolic Panel EDMS 03/29 00:14 Order name: CBC with Automated Diff EDMS 03/29 00:14 Order name: CBC with Automated Diff EDMS 03/29 00:14 Order name: NT PRO-BNP EDMS 03/29 00:14 Order name: NT PRO-BNP EDMS 03/29 00:14 Order name: Troponin I EDMS 03/29 00:14 Order name: Troponin I EDMS 03/29 00:14 Order name: Troponin I EDMS 03/29 08:09 Order name: Glucose, Ancillary Testing EDIN 03/28 20:38 Order name: XRAY Chest (1 view); Complete Time: 22:09 [facility] 03/28 20:38 Order name: EKG; Complete Time: 20:38 4 03/28 20:38 Order name: Cardiac monitoring; Complete Time: 20:38 4 03/28 20:38 Order name: EKG - Nurse/Tech; Complete Time: 20:38 4 03/28 20:38 Order name: IV Saline Lock; Complete Time: 20:50 [facility] 03/28 20:38 Order name: Labs collected and sent; Complete Time: 20:50 [facility] 03/28 20:38 Order name: O2 Per Protocol; Complete Time: 20:50 4 03/28 20:38 Order name: O2 Sat Monitoring; Complete Time: 20:50 4 03/28 20:53 Order name: CT Head Brain wo Cont; Complete Time: 22:09 7 03/28 20:53 Order name: Orthostatics; Complete Time: 22:56 7 03/28 22:12 Order name: US Abdomen Limited 7 03/29 00:14 Order name: Consistent Carb (ADA) [address] EDMS 03/29 00:14 Order name: Chest Single View EDMS 03/29 00:14 Order name: Chest Single View EDMS 03/29 11:39 Order name: Glucose, Ancillary Testing EDMS 03/29 17:06 Order name: Glucose, Ancillary Testing EDMS Administered Medications: 22:39 Drug: Zofran (Ondansetron) 4 mg Route: IVP; Site: left antecubital; ea 23:44 Follow up: Response: No adverse reaction ea 22:39 Drug: NS 0.9% 1000 ml Route: IV; Rate: 1000 ml; Site: left antecubital; ea 22:55 Drug: Rocephin (cefTRIAXone) 1 grams Route: IV; Rate: per protocol; Site: left ea antecubital; 22:55 Drug: AZITHromycin 500 mg Route: IVPB; Infused Over: 1 hrs; Site: left antecubital; ea 22:56 Drug: Tylenol 650 mg Route: PO; ea 23:44 Follow up: Response: No adverse reaction 03/29 00:21 Drug: SOLU-Medrol (methylPrednisoLONE) 80 mg Route: IVP; Site: left antecubital; ea 00:21 Follow up: Response: No adverse reaction Disposition Summary: 03/28/21 23:46 Hospitalization Ordered Hospitalization Status: Inpatient Admission [facility] Provider: Camilla Jara Condition: Stable [facility] Problem: new [facility] Symptoms: have improved [facility] Bed/Room Type: Standard [facility] Location: Telemetry/MedSurg (Inpatient)(03/29/21 18:37) dw Room Assignment: [facility](03/29/21 18:37) dw Diagnosis - Syncope 7 - Pneumonia due to SARS-associated coronavirus [facility] Forms: - Medication Reconciliation Form 7 - SBAR form [facility] Signatures: Dispatcher [employer] EDRhoda Edmonds RN Ann Carter, RN RN Praveen Meehan, SANDER RN [id number] Elmira Saeed, RN Lv Monique ea, MD MD mh7 Corrections: (The following items were deleted from the chart) 03/28 21:01 20:54 LIPASE+C.LAB.BRZ ordered. EDMS EDMS : 20:51 CORONAVIRUS ordered. EDMS EDMS : 20:54 CORONAVIRUS+MR.LAB.BRZ ordered. EDMS EDMS 03/29 01:20 03/28 23:46 Telemetry/MedSurg (Inpatient) counts include 234 beds at the [facility] 03/29 01:20 08 23:46 counts include 234 beds at the [facility] 03/29 18:37 01:20 [facility] ER HOLD [facility] 18:37 01:20 ERHOLD- [facility]
[2021-03-28] MEDS ORDERED: ALBUTEROL 2.5 MG/3 ML NEB SOL NEB PRN (23:53)
[2021-03-28] MEDS ORDERED: MORPHINE 4 MG/ML SYR IV PRN (23:53)
[2021-03-28] MEDS ORDERED: IPRATROPIUM BROM 0.5MG/2.5ML NEB PRN (23:53)
[2021-03-28] MEDS ORDERED: ONDANSETRON 4 MG/2 ML VIAL IV PRN (23:53)
[2021-03-29] MEDS ORDERED: METHYLPREDNISOLONE 40 MG INJ ONE ×2 (00:11→07:56)
[2021-03-29 05:15] LABS: Absolute Lymphocytes (CBC) 0.8 K/uL (0.7-4.9); Basophils % 0.1 % (0-1.3); Hematocrit 33.8 % (39.6-49.0); Lymphocytes % 26.3 % (15.3-44.8); MPV 7.9 fL (7.6-11.3); RBC Red Blood Cell Count 4.07 M/uL (4.33-5.43)
[2021-03-29 05:45] LABS: Potassium 4.7 mmol/L (3.5-5.1)
[2021-03-29] MEDS ORDERED: VITAMIN D 1000 UNIT TAB ONE (07:55)
[2021-03-29] MEDS ORDERED: ZINC SULFATE 220 MG CAP ONE (07:55)
[2021-03-29] MEDS ORDERED: ASCORBIC ACID 500 MG TABLET ONE (07:55)
[2021-03-29] MEDS ORDERED: D50W 25 GM/50 ML SYRINGE IV PRN ×2 (07:57→08:00)
[2021-03-29] MEDS ORDERED: GLUCAGON 1 MG/VIAL IM PRN ×2 (07:57→08:00)
[2021-03-29] MEDS ORDERED: PNEUMOCOCCAL VACCINE 0.5 ML IMVAC ONE (08:00)
[2021-03-29] MEDS: VITAMIN D 1000 UNIT TAB PO SCH (08:16)
[2021-03-29] MEDS: METHYLPREDNISOLONE 125 MG INJ IV SCH ×2 (08:16→22:54)
[2021-03-29] MEDS: ASCORBIC ACID 500 MG TABLET PO SCH (08:16)
[2021-03-29] MEDS: ZINC SULFATE 220 MG CAP PO SCH (08:16)
[2021-03-29] MEDS: ASPIRIN EC 81 MG TAB PO SCH (08:30)
[2021-03-29] MEDS: METOPROLOL TAR 50 MG TAB PO SCH ×2 (08:30→22:53)
[2021-03-29] MEDS: HEPARIN 5000 UNIT/ML 1 ML VIAL SQ SCH ×2 (08:30→17:00)
[2021-03-29] MEDS: GABAPENTIN 300 MG CAP PO SCH ×2 (08:31→22:54)
[2021-03-29] MEDS: AMLODIPINE 10 MG TAB PO SCH (08:31)
[2021-03-29] MEDS: CEFTRIAXONE/SWI 1gm 1 GM/10 ML SYR IV SCH ×2 (08:31→22:54)
--- NOTE | 2021-03-29 08:34 | RAD REPORT ---
EXAM DESCRIPTION: US - Abdomen Exam Limited - 03/28/2021 10:36 pm CLINICAL HISTORY: RUQ;Nausea / vomiting Abdominal pain COMPARISON: Abdomen Exam Complete dated 11/28/2017 FINDINGS: The gallbladder demonstrates no gallstones. No pericholecystic fluid or gallbladder wall t hickening. The common bile duct is normal measuring 2 mm. The liver demonstrates no findings of intrahepatic biliary dilatation. IMPRESSION: Unremarkable examination.
[2021-03-29] MEDS ORDERED: METOPROLOL TAR 50 MG TAB ONE (08:43)
[2021-03-29] MEDS ORDERED: ASPIRIN 81 MG CHEWABLE TABLET ONE (08:43)
[2021-03-29] MEDS ORDERED: HEPARIN 5000 UNIT/ML 1 ML VIAL ONE ×2 (08:43→18:26)
[2021-03-29] MEDS ORDERED: GABAPENTIN 300 MG CAP ONE (08:44)
[2021-03-29] MEDS ORDERED: AMLODIPINE 10 MG TAB ONE (08:44)
[2021-03-29] MEDS ORDERED: CEFTRIAXONE/SWI 1gm 1 GM/10 ML SYR ONE (08:44)
[2021-03-29] MEDS ORDERED: CEFTRIAXONE 1 GM/NS 50 ML 1 GM/50 ML BAG IV SCH (09:00)
--- NOTE | 2021-03-29 09:03 | RAD REPORT ---
EXAM DESCRIPTION: RAD - Chest Single View - 03/29/2021 5:15 am CLINICAL HISTORY: Chest Pain Chest pain. COMPARISON: Chest Single View dated 03/28/2021 FINDINGS: Portable technique limits examination quality. Mild bilateral pulmonary opacities are again seen, appearing slightly improved since the comparative study. The heart is mildly enlarged in size. No displaced fractures. IMPRESSION: Slight improvement lung aeration noted since comparative study.
[2021-03-29] MEDS: INSULIN -REGULAR HUMAN 50 UNIT/0.5 ML ML SQ SCH ×3 (11:30→22:55)
[2021-03-29] MEDS ORDERED: INSULIN -REGULAR HUMAN 50 UNIT/0.5 ML ML ONE ×2 (12:01→18:24)
--- NOTE | 2021-03-29 17:00 | EKG ---
Test Date: 2021-03-28 Test Time: 20:36:41 Ticketer: DO MEASUREMENT RESULTS: Intervals: Rate: 79 LA: 180 QRSD: 70 QT: 344 QTc: 394 [place]: P: 44 LA: 180 QRS: 18 T: 33 INTERPRETIVE STATEMENTS: Normal sinus rhythm Normal ECG No previous ECG available for comparison Electronically Signed On 03-29-21 16:58:49 CDT by Joshua Mariscal
[2021-03-29] MEDS: lisinopriL 10 MG TAB PO SCH (22:53)
[2021-03-29] MEDS: ATORVASTATIN 20 MG TAB PO SCH (22:54)
[2021-03-29] MEDS: INSULIN GLARGINE 100 UNITS/ML SQ SCH (22:55)
[2021-03-29] MEDS: AZITHROMYCIN IV 250 MG in NA CHLORIDE 0.9% 250 ML IVPB SCH (23:31)
[2021-03-29] MEDS ORDERED: AZITHROMYCIN 500 MG INJ IVPB ONE (23:43)
[2021-03-29] MEDS ORDERED: NA CHLORIDE 0.9% 250 ML ONE (23:50)
[2021-03-30] MEDS: HEPARIN 5000 UNIT/ML 1 ML VIAL SQ SCH ×3 (00:16→16:05)
[2021-03-30 04:55] LABS: Absolute Lymphocytes (CBC) 1.2 K/uL (0.7-4.9); Basophils % 0.1 % (0-1.3); Hematocrit 38.1 % (39.6-49.0); Lymphocytes % 15.8 % (15.3-44.8); MPV 8.5 fL (7.6-11.3); RBC Red Blood Cell Count 4.58 M/uL (4.33-5.43)
[2021-03-30 05:14] LABS: C-Reactive Protein 12.6 mg/L (<3.00); Magnesium 2.1 mg/dL (1.8-2.4); Potassium 4.8 mmol/L (3.5-5.1)
[2021-03-30] MEDS: INSULIN -REGULAR HUMAN 50 UNIT/0.5 ML ML SQ SCH ×4 (07:30→20:43)
[2021-03-30] MEDS: VITAMIN D 1000 UNIT TAB PO SCH (08:24)
[2021-03-30] MEDS: ASPIRIN EC 81 MG TAB PO SCH (08:24)
[2021-03-30] MEDS: GABAPENTIN 300 MG CAP PO SCH ×2 (08:24→20:42)
[2021-03-30] MEDS: ASCORBIC ACID 500 MG TABLET PO SCH (08:24)
[2021-03-30] MEDS: BENZONATATE 100 MG CAP PO PRN (08:24)
[2021-03-30] MEDS: ZINC SULFATE 220 MG CAP PO SCH (08:24)
[2021-03-30] MEDS: METHYLPREDNISOLONE 125 MG INJ IV SCH ×2 (08:25→20:44)
[2021-03-30] MEDS: METOPROLOL TAR 50 MG TAB PO SCH ×2 (08:26→20:42)
[2021-03-30] MEDS: CEFTRIAXONE/SWI 1gm 1 GM/10 ML SYR IV SCH ×2 (08:26→20:41)
[2021-03-30] MEDS: AMLODIPINE 10 MG TAB PO SCH (08:26)
[2021-03-30] MEDS: ATORVASTATIN 20 MG TAB PO SCH (20:42)
[2021-03-30] MEDS: INSULIN GLARGINE 100 UNITS/ML SQ SCH (20:42)
[2021-03-30] MEDS: lisinopriL 10 MG TAB PO SCH (20:45)
[2021-03-30] MEDS: AZITHROMYCIN IV 250 MG in NA CHLORIDE 0.9% 250 ML IVPB SCH (20:46)
[2021-03-31] MEDS: HEPARIN 5000 UNIT/ML 1 ML VIAL SQ SCH ×3 (01:07→17:09)
--- NOTE | 2021-03-31 06:26 | PN ---
Date of Progress Note: 03/30/2021 Subjective: The patient was seen for followup this morning, lying in bed, not in distress. No new c omplaints or problems reported by him. Denies any cough, congestion, shortness of breath. No nausea , vomiting, diarrhea. Not using any supplemental oxygen. Objective: Vital Signs: Reviewed. HEENT: Examination unremarkable. Lungs: Clear to auscultation. Cardiac: Heart sounds normal. Abdomen: Soft, bowel sounds normal. No guarding, rigidity, tenderness, or distention. Extremities: No leg edema. Laboratory Data: White count 7.5, hemoglobin 12.5, platelets 172. Sodium 139, potassium 4.8, chlori de 108, bicarb 24, BUN 27, creatinine 1.43, glucose 293, CRP 12.6. Chest x-ray today shows improveme nt in lung infiltrate. Impression: 1.COVID-19 infection. 2.COVID-19 pneumonia. 3.Acute kidney injury. 4.Volume depletion. 5.Hypertension. 6.Diabetes mellitus, type 2. Plan: We will continue current medication. Follow with Dr. Reddy. We will continue current stero id antibiotics. I will see him tomorrow for followup. EMI/MODL Voice ID: [id number] Report ID: [id number]
--- NOTE | 2021-03-31 06:42 | HP ---
Date of Admission: 03/29/2021 Chief Complaint: Nausea, vomiting, diarrhea, and fainting feeling. History Of Present Illness: This is a 70-year-old male patient who was doing fine in his normal [facility] until yesterday, he started to have problem with nausea, vomiting, diarrhea, and so me fainting type of feeling. He came into the emergency room after he was evaluated in the ER. He wa s diagnosed as having COVID-19 infection and was admitted to the hospital. I saw him this morning. He was still in the emergency room when I saw him. Denies any cough, shortness of breath. Allergies: NO KNOWN ALLERGIES. Medications: According to office record, he is on: 1.Amlodipine 10 mg daily in morning. 2.Aspirin 81 mg daily. 3.Atorvastatin 20 mg daily with evening meal. 4.Gabapentin 300 mg takes 2 capsules 2 times a day. 5.Lantus insulin, takes 10 units subcutaneous injection at bedtime. 6.Lisinopril 10 mg daily in the evening. 7.Metformin 500 mg 2 times a day. 8.Metoprolol tartrate 50 mg 2 times a day. Review of Systems: GI: As mentioned above. All other systems reviewed and negative. Past Medical History: Significant for restless leg syndrome, type 2 diabetes mellitus, hypertension, hyperlipidemia, benign prostatic hypertrophy, chronic kidney disease. Past Surgical History: Forearm surgery. Social History: Negative for smoking and alcohol use. Family History: Father had MT. Mother had diabetes and hypertension. Brother with history of hyper tension. Physical Examination: Vital Signs: Temperature 97.8, pulse 69, respiratory rate 18, blood pressure 100/61, oxygen saturati on 98%. Height 5 feet 9 inches, weight 209 pounds. General: Awake, alert, oriented, not in distress. HEENT: Head atraumatic, normocephalic. Conjunctivae nonerythematous. Sclerae white. Mouth, no thr ush or edema noted. Ears/Nose, no mass, lesion, discharge noted. Neck: Supple. No JVD, lymph nodes, bruit, thyromegaly noted. Lungs: Bilateral good equal air entry. Clear to auscultation. No rhonchi. No rales. Heart: Normal heart sounds, no murmur or gallop. Abdomen: Soft, bowel sounds normal. No guarding, rigidity, tenderness, mass, hepatosplenomegaly, dis tention, or bruit noted. Extremities: No leg edema. No calf tenderness. Skin: No rash, ulcer, cellulitis. Lymphatics: No lymph node enlargement in neck, supraclavicular, infraclavicular region. Neuro: No focal neurological deficit. Chest: Unremarkable. External Genitalia: Deferred. Rectal: Deferred. Laboratory Data: CBC From Last Night: White count 5, hemoglobin 11.8, platelets 157. This morning, white count 3, hemoglobin 11.3 platelets 129. INR 1.10. Last night, sodium 136, potassium 4.4, chloride 105, bicarb 22, BUN 28, creatinine 1.94, glucose 176, estimated GFR 34. Liver Function Tests: AST 91, ALT 87, alkaline phosphatase 61, troponin less than 0.02. Procalcitoni n 0.07. Lactic acid 1.5. Today, sodium 136, potassium 4.7, chloride 107, bicarb 22, BUN 27, creatinine 1.53, glucose 203. COVID-19 test positive. CAT scan of the brain was negative for any acute intracranial changes. Chest x-ray showing bilateral [id number] pulmonary opacities. Impression: 1.COVID-19 infection. 2.COVID-19 pneumonia. 3.Acute kidney injury. 4.Hypertension. 5.Type 2 diabetes mellitus. 6.Hyperlipidemia. 7.Restless leg syndrome. 8.Chronic kidney disease, stage IIIA. Plan: Admit the patient to hospital for further evaluation and management of this problem. The junaid ent is appropriate for inpatient and is expected to spend 2 midnights in hospital. We will consult Jorge Reddy from Pulmonary Service. Lovenox will be given for DVT prophylaxis. The patient does not require any supplemental oxygen at this point. We will continue home medications per order. IV dhruv roid antibiotic will be given per order which will be ceftriaxone and azithromycin. Details and plan of treatment discussed with the patient. I will see him tomorrow for followup. EMI/RONAK Voice ID: [id number]
[2021-03-31] MEDS: INSULIN -REGULAR HUMAN 50 UNIT/0.5 ML ML SQ SCH ×4 (07:30→22:11)
[2021-03-31 08:07] LABS: Absolute Lymphocytes (CBC) 0.7 K/uL (0.7-4.9); Basophils % 0.1 % (0-1.3); Hematocrit 34.5 % (39.6-49.0); Lymphocytes % 10.1 % (15.3-44.8)
[2021-03-31 08:26] LABS: Bilirubin Total 0.1 mg/dL (0.2-1.0); C-Reactive Protein 4.88 mg/L (<3.00); Magnesium 2.2 mg/dL (1.8-2.4); Potassium 4.5 mmol/L (3.5-5.1)
[2021-03-31] MEDS: VITAMIN D 1000 UNIT TAB PO SCH (09:00)
[2021-03-31] MEDS: ASPIRIN EC 81 MG TAB PO SCH (09:14)
[2021-03-31] MEDS: METOPROLOL TAR 50 MG TAB PO SCH ×2 (09:14→22:12)
[2021-03-31] MEDS: ZINC SULFATE 220 MG CAP PO SCH (09:18)
[2021-03-31] MEDS: GABAPENTIN 300 MG CAP PO SCH ×2 (09:18→22:12)
[2021-03-31] MEDS: AMLODIPINE 10 MG TAB PO SCH (09:19)
[2021-03-31] MEDS: ASCORBIC ACID 500 MG TABLET PO SCH (09:19)
[2021-03-31] MEDS: CEFTRIAXONE/SWI 1gm 1 GM/10 ML SYR IV SCH ×2 (09:20→22:12)
[2021-03-31] MEDS: METHYLPREDNISOLONE 125 MG INJ IV SCH (09:20)
--- NOTE | 2021-03-31 09:32 | RAD REPORT ---
EXAM DESCRIPTION: Domenico Single View03/31/2021 8:57 am CLINICAL HISTORY: Chest pain COMPARISON: March 29, 2021 FINDINGS: No significant change in moderate bilateral pulmonary opacities. Heart is probably normal size IMPRESSION: No change in moderate bilateral pulmonary opacities probably pneumonia
--- NOTE | 2021-03-31 10:53 | EKG ---
Test Date: 2021-03-29 Test Time: 21:54:12 Mission Assessment Specialist: 33 MEASUREMENT RESULTS: Intervals: Rate: 95 MN: 184 QRSD: 68 QT: 332 QTc: 417 [place]: P: 52 MN: 184 QRS: 25 T: 20 INTERPRETIVE STATEMENTS: Sinus rhythm with marked sinus arrhythmia Nonspecific ST abnormality Abnormal ECG Compared to ECG 03/29/2021 21:53:37 Sinus tachycardia no longer present First degree AV block no longer present ST (T wave) deviation still present Electronically Signed On 03-31-21 10:48:40 CDT by Joshua Mariscal
--- NOTE | 2021-03-31 11:45 | P.CNS ---
Date of Consult: 03/31/21 (Pt agreed TV) Reason for Consult: COVID penumonia Chief Complaint: COVID pos, GI symtpoms History of Present Illness: Age 70 AW GI symptoms,Dx with COVID, Denies resp complaints No fever/ Never smoked / feeling finr/ CXRY ILD changes Allergies No Known Allergies Allergy (Unverified 03/29/21 02:53) Home Medications: Amlodipine [Norvasc] 10 mg PO DAILY 03/30/21 Gabapentin 600 mg PO BID 03/30/21 Insulin Glargine,Hum.rec.anlog [Lantus Solostar] 14 units SQ BEDTIME 03/30/21 Metformin HCl 500 mg PO BID 03/30/21 Metoprolol Tartrate 50 mg PO BID 03/30/21 lisinopriL [Lisinopril] 10 mg PO BEDTIME 03/30/21 - Past Medical/Surgical History -: hypertension -: diabetes - Social History Smoking Status: Unknown if ever smoked Place of Residence: Home Review of Systems 10-point ROS is otherwise unremarkable Physical Examination Temp Pulse Resp BP Pulse Ox 97.7 F 99 H 20 140/75 91 03/31/21 08:00 03/31/21 09:19 03/31/21 08:00 03/31/21 09:19 03/31/21 08:00 General: Alert, In no apparent distress, Oriented x3 - Problems (1) Pneumonia Current Visit: Yes Status: Acute Plan: Doubt COVID infection. Mild hypoxemia, CRP mild elevation. PCT elevated/ WBC normal/ Plan for DC home levaquin, low dose 10 BID pred and Ivermectin/ FU CXRY in 2 wks/ RA sat 91%/ Does not qualify for home O2/ Change pred PO BID Qualifiers: Pneumonia type: due to unspecified organism
[2021-03-31] MEDS: IVERMECTIN 3 MG TABLET PO SCH (13:58)
--- NOTE | 2021-03-31 20:19 | PN ---
Date of Progress Note: 03/31/2021 Subjective: The patient was seen this morning for followup, lying in bed, not in distress. Denies a ny cough, congestion, shortness of breath, nausea, vomiting, diarrhea. Objective: Vital Signs: Reviewed. HEENT: Unremarkable. Lungs: Clear to auscultation. Heart: Sounds normal. Abdomen: Soft. Bowel sounds normal. No guarding, rigidity, tenderness, or distention. Extremities: No leg edema. Laboratory Data: White count 7.2, hemoglobin 11.7, platelets 163. Sodium 142, potassium 4.5, chlori de 112, bicarb 24, BUN 23, creatinine 1.23, glucose 227. Liver function tests unremarkable. CRP 4.8 8. Yesterday, CRP was 12.6. His chest x-ray from today shows moderate bilateral pulmonary opacities , unchanged from yesterday. Impression: 1.COVID-19 infection. 2.COVID-19 pneumonia. 3.Acute respiratory failure with hypoxia. 4.Hypertension. 5.Type 2 diabetes mellitus. Plan: The patient's lowest oxygen saturation was 90% today. Otherwise, he has not had any problem w ith hypoxia. We will definitely go ahead and continue to monitor him in the hospital right now. Las t oxygen saturation this evening is 91% on room air. We will continue his current antibiotic. He is on ceftriaxone and azithromycin. Continue steroid therapy. Dr. Reddy, details were discussed wi th him. He has started the patient on ivermectin and I will see him tomorrow for followup. We will also continue heparin. I will repeat chest x-ray tomorr ow morning. EMI/MODL Voice ID: [id number] Report ID: [id number]
[2021-03-31] MEDS: INSULIN GLARGINE 100 UNITS/ML SQ SCH (22:10)
[2021-03-31] MEDS: AZITHROMYCIN IV 250 MG in NA CHLORIDE 0.9% 250 ML IVPB SCH (22:11)
[2021-03-31] MEDS: lisinopriL 10 MG TAB PO SCH (22:13)
[2021-03-31] MEDS: ATORVASTATIN 20 MG TAB PO SCH (22:13)
[2021-03-31] MEDS: predniSONE 20 MG TAB PO SCH (22:13)
[2021-04-01] MEDS: HEPARIN 5000 UNIT/ML 1 ML VIAL SQ SCH ×3 (01:39→16:54)
--- NOTE | 2021-04-01 08:33 | RAD REPORT ---
EXAM DESCRIPTION: RAD - Chest Single View - 04/01/2021 6:38 am CLINICAL HISTORY: COVID pneumonia COMPARISON: Chest Single View dated 03/31/2021; Chest Single View dated 03/29/2021; Chest Single View da katya 03/28/2021 FINDINGS: Moderate patch bilateral airspace opacities cardiomegalyNo acute osseous abnormality. No s ignificant pleural effusions or pneumothorax. IMPRESSION: Similar aeration of the lungs compared with yesterday with moderate bilateral airspace d isease likely representing multifocal pneumonia.
[2021-04-01] MEDS: INSULIN -REGULAR HUMAN 50 UNIT/0.5 ML ML SQ SCH ×4 (09:13→22:04)
[2021-04-01] MEDS: METOPROLOL TAR 50 MG TAB PO SCH ×2 (09:14→22:01)
[2021-04-01] MEDS: AMLODIPINE 10 MG TAB PO SCH (09:15)
[2021-04-01] MEDS: GABAPENTIN 300 MG CAP PO SCH ×2 (09:15→22:00)
[2021-04-01] MEDS: predniSONE 20 MG TAB PO SCH (09:15)
[2021-04-01] MEDS: ASPIRIN EC 81 MG TAB PO SCH (09:15)
[2021-04-01] MEDS: ASCORBIC ACID 500 MG TABLET PO SCH (09:15)
[2021-04-01] MEDS: ZINC SULFATE 220 MG CAP PO SCH (09:15)
[2021-04-01] MEDS: VITAMIN D 1000 UNIT TAB PO SCH (09:15)
[2021-04-01] MEDS: CEFTRIAXONE/SWI 1gm 1 GM/10 ML SYR IV SCH ×2 (09:16→22:06)
--- NOTE | 2021-04-01 11:21 | P.PN ---
Subjective Date of Service: 04/01/21 Chief Complaint: COVID penumonia Subjective: Improving (Doign well no complaints/ Mild dest aam) Review of Systems General: Weakness Respiratory: Shortness of Breath Physical Examination - Vital Signs Temperature: 98.9 F Blood Pressure: 117/67 Pulse: 70 Respirations: 22 Pulse Ox (%): 93 - Physical Exam General: Alert, In no apparent distress, Oriented x3, Cooperative - Studies Microbiology Data (last 24 hrs): 03/28/21 22:20 Blood - Blood Gram Stain - Final Assessment & Plan - Problems (Diagnosis) (1) Pneumonia Current Visit: Yes Status: Acute Plan: Doing well, Mild desat am/ PossCOVID vs atypical pneumonia/ check ABG, Ambulate increase solumederol for now/ CXRY and CRP ordered Qualifiers: Pneumonia type: due to unspecified organism
[2021-04-01] MEDS: METHYLPREDNISOLONE 40 MG INJ IV SCH ×2 (11:51→22:02)
[2021-04-01 13:16] LABS: Arterial Blood Carboxyhemoglob 0.7 % (0-1.5); Blood Gas Oxyhemoglobin 87.5 % (94-97); Blood O2 Saturation 88.9 % (92-98.5)
--- NOTE | 2021-04-01 13:26 | PN ---
Date of Progress Note: 04/01/2021 Subjective: The patient was seen this morning for followup. No new complaints or problems reported by patient. He was lying in bed, not in distress. Complaining of some pain in his chest with deep b reathing. Not coughing up any mucus. Denies any shortness of breath feeling. No vomiting. No diar mahad. Has a good appetite. Objective: Vital Signs: Reviewed. HEENT: Unremarkable. Lungs: Clear to auscultation. Heart: Sounds normal. Abdomen: Soft. Bowel sounds normal. No guarding, rigidity, tenderness, or distention. Extremities: No leg edema. Impression: 1.COVID-19 infection with 19 pneumonia. 2.Acute respiratory failure with hypoxia. 3.Hypertension. 4.Type 2 diabetes mellitus. Plan: The patient's oxygen saturation dropped down last night to 82% on room air and he was placed o n oxygen 2 L nasal cannula and he is maintaining adequate oxygenation on this nasal cannula oxygen. With this in mind, he will not be able to go home. We will have to continue to keep him in the [facility] for further treatment. We will continue to follow with Dr. Reddy. He is on steroid and we wi ll change it to IV steroid instead of oral steroid, which was changed by Dr. Reddy yesterday and c onsidering his hypoxia problem now, we will go ahead and start him on IV steroid. We will continue t o follow with Dr. Reddy for any other intervention including treatment with remdesivir as I had di scussed with him yesterday and we will see what his opinion is today considering the patient's hypoxia problem from last night. EMI/MODL Voice ID: [id number] Report ID: [id number]
[2021-04-01] MEDS: ATORVASTATIN 20 MG TAB PO SCH (22:01)
[2021-04-01] MEDS: lisinopriL 10 MG TAB PO SCH (22:01)
[2021-04-01] MEDS: AZITHROMYCIN IV 250 MG in NA CHLORIDE 0.9% 250 ML IVPB SCH (22:02)
[2021-04-01] MEDS: INSULIN GLARGINE 100 UNITS/ML SQ SCH (22:03)
[2021-04-02] MEDS: HEPARIN 5000 UNIT/ML 1 ML VIAL SQ SCH ×3 (02:05→16:53)
[2021-04-02] MEDS: INSULIN -REGULAR HUMAN 50 UNIT/0.5 ML ML SQ SCH ×4 (08:35→20:53)
[2021-04-02] MEDS: CEFTRIAXONE/SWI 1gm 1 GM/10 ML SYR IV SCH ×2 (08:36→19:47)
[2021-04-02] MEDS: METOPROLOL TAR 50 MG TAB PO SCH ×2 (08:36→19:43)
[2021-04-02] MEDS: METHYLPREDNISOLONE 40 MG INJ IV SCH (08:36)
[2021-04-02] MEDS: VITAMIN D 1000 UNIT TAB PO SCH (08:37)
[2021-04-02] MEDS: ASCORBIC ACID 500 MG TABLET PO SCH (08:37)
[2021-04-02] MEDS: GABAPENTIN 300 MG CAP PO SCH ×2 (08:37→19:42)
[2021-04-02] MEDS: ZINC SULFATE 220 MG CAP PO SCH (08:37)
[2021-04-02] MEDS: ASPIRIN EC 81 MG TAB PO SCH (08:37)
[2021-04-02] MEDS: AMLODIPINE 10 MG TAB PO SCH (08:38)
[2021-04-02] MEDS: IVERMECTIN 3 MG TABLET PO SCH (12:13)
[2021-04-02 13:03] LABS: Absolute Lymphocytes (CBC) 0.4 K/uL (0.7-4.9); Basophils % 0.3 % (0-1.3); Hematocrit 36.1 % (39.6-49.0); Lymphocytes % 4.4 % (15.3-44.8); MPV 8.2 fL (7.6-11.3); RBC Red Blood Cell Count 4.36 M/uL (4.33-5.43)
[2021-04-02 13:07] LABS: Albumin 2.7 g/dL (3.4-5.0); Bilirubin Total 0.2 mg/dL (0.2-1.0); C-Reactive Protein 16.8 mg/L (<3.00); Magnesium 2.3 mg/dL (1.8-2.4); Potassium 4.5 mmol/L (3.5-5.1)
--- NOTE | 2021-04-02 13:56 | RAD REPORT ---
EXAM DESCRIPTION: RAD - Chest Single View - 04/02/2021 1:44 pm CLINICAL HISTORY: covid COMPARISON: Chest Single View dated 04/01/2021; Chest Single View dated 03/31/2021; Chest Single View da katya 03/29/2021; Chest Single View dated 03/28/2021 FINDINGS: Moderate bilateral airspace disease which is unchanged from yesterday. CardiomegalyNo acut e osseous abnormality. No significant pleural effusions or pneumothorax. IMPRESSION: Widespread airspace disease bilaterally which is unchanged.
[2021-04-02] MEDS: METHYLPREDNISOLONE 125 MG INJ IV SCH ×2 (13:59→19:47)
--- NOTE | 2021-04-02 14:29 | P.PN ---
Subjective Date of Service: 04/02/21 Chief Complaint: COVID penumonia Subjective: Worsening (conditon worse although patient feels NC from yesterday) Review of Systems General: Weakness Respiratory: Shortness of Breath Physical Examination - Vital Signs Temperature: 98.9 F Blood Pressure: 118/78 Pulse: 79 Respirations: 24 Pulse Ox (%): 85 - Physical Exam General: Alert, In no apparent distress, Oriented x3, Cooperative Assessment & Plan - Problems (Diagnosis) (1) Pneumonia Current Visit: Yes Status: Acute Plan: Resp failure worsening increase Steroids add remdesmr/ Barcitnit if on high flow and CRP > 75/CRP declining Qualifiers: Pneumonia type: due to unspecified organism
[2021-04-02 14:53] LABS: Platelet Estimate ADEQ; White Blood Cell Scan OK (OK)
[2021-04-02 14:54] LABS: Anisocytosis 1+; Blood Morphology Comment NOTED (NOT SEEN); Poikilocytosis 1+
[2021-04-02] MEDS ORDERED: REMDESIVIR (EUA) 200 MG in NA CHLORIDE 0.9% 250 ML IV ONE (15:00)
[2021-04-02] MEDS ORDERED: GLUCAGON 1 MG/VIAL IM PRN (18:21)
[2021-04-02] MEDS ORDERED: D50W 25 GM/50 ML SYRINGE IV PRN (18:21)
--- NOTE | 2021-04-02 19:24 | PN ---
Date of Progress Note: 04/02/2021 Subjective: The patient was evaluated this morning via tele visit that included audio and video comp onent. He was sitting in the bed, not in distress, on nasal cannula oxygen. The patient has require d increased amount of oxygen replacement therapy. When I evaluated him, he was on 8 L nasal cannula oxygen. He was not in any distress. Denied any complaints, except he continues to have pain in the center of the chest with deep breathing. Has a good appetite. Objective: Vital signs reviewed. Laboratory Data: White count 9.5, hemoglobin 11.8, platelets 242. Sodium 140, potassium 4.5, chlori de 110, bicarb 23, BUN 26, creatinine 1.12, glucose 352. Liver function tests unremarkable. CRP 16. 8. Yesterday, CRP was 4.6. Chest x-ray shows widespread airspace disease bilaterally, unchanged fro m yesterday. Impression: 1.COVID-19 infection. 2.COVID-19 pneumonia. 3.Acute respiratory failure with hypoxia. 4.Diabetes mellitus, type 2, uncontrolled, due to IV steroid. 5.Anemia, unspecified. Plan: We will go ahead and continue current medications. The patient is on IV steroid, Solu-Medrol and he was taking 80 mg 2 times a day and Dr. Reddy has increased dose to 3 times a day today and he has also added remdesivir. We will continue current antibiotic, which is ceftriaxone and azithrom ycin. Continue heparin 5000 units subcutaneous injection every 8 hours and the patient was advised t o move his extremities while he is sitting and lying down and deep breathing exercise advised. We will follow up tomorrow. We will repeat blood work tomorrow. EMI/MODL Voice ID: [id number] Report ID: [id number]
[2021-04-02] MEDS: ATORVASTATIN 20 MG TAB PO SCH (19:43)
[2021-04-02] MEDS: lisinopriL 10 MG TAB PO SCH (19:47)
[2021-04-02] MEDS: AZITHROMYCIN IV 250 MG in NA CHLORIDE 0.9% 250 ML IVPB SCH (19:55)
[2021-04-02] MEDS: INSULIN GLARGINE 100 UNITS/ML SQ SCH (20:54)
[2021-04-03] MEDS: HEPARIN 5000 UNIT/ML 1 ML VIAL SQ SCH ×3 (00:47→16:31)
[2021-04-03 06:05] VITALS: BMI 30.7
--- NOTE | 2021-04-03 08:01 | RAD REPORT ---
EXAM DESCRIPTION: Domenico Single View04/03/2021 7:08 am CLINICAL HISTORY: Cough COMPARISON: March FINDINGS: No significant change in moderate to marked bilateral pulmonary opacities. Heart remains enlarged IMPRESSION: No significant change in bilateral pulmonary opacities probably pneumonia
[2021-04-03 08:07] LABS: ALT/SGPT 41 U/L (12-78); AST/SGOT 18 U/L (15-37); Albumin 2.4 g/dL (3.4-5.0); Alkaline Phosphatase 60 U/L (45-117); BUN Blood Urea Nitrogen 25 mg/dL (7-18); Bicarbonate 27 mmol/L (21-32); Bilirubin Direct < 0.1 mg/dL (0-0.2); Bilirubin Total 0.2 mg/dL (0.2-1.0); Glucose Level 245 mg/dL (74-106); Magnesium 2.4 mg/dL (1.8-2.4); Potassium 4.5 mmol/L (3.5-5.1); Protein, Total 6.4 g/dL (6.4-8.2); Sodium Level 146 mmol/L (136-145)
[2021-04-03] MEDS: CEFTRIAXONE/SWI 1gm 1 GM/10 ML SYR IV SCH ×2 (08:42→20:29)
[2021-04-03] MEDS: INSULIN GLARGINE 100 UNITS/ML SQ SCH ×2 (08:42→20:30)
[2021-04-03] MEDS: INSULIN -REGULAR HUMAN 50 UNIT/0.5 ML ML SQ SCH ×4 (08:43→20:31)
[2021-04-03] MEDS: METHYLPREDNISOLONE 125 MG INJ IV SCH ×3 (08:43→20:30)
[2021-04-03] MEDS: ASPIRIN EC 81 MG TAB PO SCH (08:44)
[2021-04-03] MEDS: AMLODIPINE 10 MG TAB PO SCH (08:44)
[2021-04-03] MEDS: ASCORBIC ACID 500 MG TABLET PO SCH (08:44)
[2021-04-03] MEDS: GABAPENTIN 300 MG CAP PO SCH ×2 (08:44→20:28)
[2021-04-03] MEDS: VITAMIN D 1000 UNIT TAB PO SCH (08:44)
[2021-04-03] MEDS: ZINC SULFATE 220 MG CAP PO SCH (08:44)
[2021-04-03] MEDS: METOPROLOL TAR 50 MG TAB PO SCH ×2 (08:45→20:28)
[2021-04-03] MEDS: REMDESIVIR (EUA) 100 MG in NA CHLORIDE 0.9% 250 ML IV SCH (09:04)
[2021-04-03] MEDS: lisinopriL 10 MG TAB PO SCH (20:29)
[2021-04-03] MEDS: ATORVASTATIN 20 MG TAB PO SCH (20:29)
[2021-04-03] MEDS: AZITHROMYCIN IV 250 MG in NA CHLORIDE 0.9% 250 ML IVPB SCH (20:37)
--- NOTE | 2021-04-03 20:41 | P.PN ---
Subjective Date of Service: 04/03/21 Chief Complaint: COVID penumonia Subjective: Worsening (Condition worsening) Review of Systems General: Weakness Respiratory: Shortness of Breath Physical Examination - Vital Signs Temperature: 98.6 F Blood Pressure: 126/80 Pulse: 100 Respirations: 25 Pulse Ox (%): 90 - Physical Exam General: Alert, Oriented x3, Cooperative - Studies Microbiology Data (last 24 hrs): 03/28/21 22:20 Blood - Blood Aerobic Blood Culture - Final No growth in 5 days. 03/28/21 22:20 Blood - Blood Anaerobic Blood Culture - Final 03/28/21 22:20 Blood - Blood Gram Stain - Final 03/28/21 22:20 Blood - Blood Aerobic Blood Culture - Final No growth in 5 days. 03/28/21 22:20 Blood - Blood Anaerobic Blood Culture - Final No growth in 5 days. Assessment & Plan - Problems (Diagnosis) (1) Pneumonia Current Visit: Yes Status: Acute Plan: Resp failure CRP declining/ To check with pharmacy if pt will qualify for Actemra/LAbs reviwed/Change to PO levaquin? Qualifiers: Pneumonia type: due to unspecified organism
[2021-04-04] MEDS: HEPARIN 5000 UNIT/ML 1 ML VIAL SQ SCH ×3 (00:26→16:34)
[2021-04-04 06:52] LABS: ALT/SGPT 42 U/L (12-78); AST/SGOT 21 U/L (15-37); Albumin 2.3 g/dL (3.4-5.0); Alkaline Phosphatase 61 U/L (45-117); Bilirubin Direct < 0.1 mg/dL (0-0.2); Bilirubin Total 0.2 mg/dL (0.2-1.0); Protein, Total 6.2 g/dL (6.4-8.2)
[2021-04-04] MEDS: INSULIN GLARGINE 100 UNITS/ML SQ SCH ×2 (08:00→20:30)
[2021-04-04] MEDS: VITAMIN D 1000 UNIT TAB PO SCH (09:15)
[2021-04-04] MEDS: METHYLPREDNISOLONE 125 MG INJ IV SCH ×3 (09:15→20:11)
[2021-04-04] MEDS: AMLODIPINE 10 MG TAB PO SCH (09:16)
[2021-04-04] MEDS: ASPIRIN EC 81 MG TAB PO SCH (09:17)
[2021-04-04] MEDS: GABAPENTIN 300 MG CAP PO SCH ×2 (09:17→20:10)
[2021-04-04] MEDS: METOPROLOL TAR 50 MG TAB PO SCH ×2 (09:18→20:10)
[2021-04-04] MEDS: REMDESIVIR (EUA) 100 MG in NA CHLORIDE 0.9% 250 ML IV SCH (09:18)
[2021-04-04] MEDS: ASCORBIC ACID 500 MG TABLET PO SCH (09:18)
[2021-04-04] MEDS: CEFTRIAXONE/SWI 1gm 1 GM/10 ML SYR IV SCH ×2 (09:18→20:11)
[2021-04-04] MEDS: ZINC SULFATE 220 MG CAP PO SCH (09:18)
[2021-04-04] MEDS: INSULIN -REGULAR HUMAN 50 UNIT/0.5 ML ML SQ SCH ×4 (09:19→20:29)
--- NOTE | 2021-04-04 10:50 | PN ---
Date of Progress Note: 04/03/2021 Subjective: The patient was seen for followup this morning. He was evaluated via tele visit that in cluded audio and video component. The patient denies any complaints. He was sitting in bed with chapin al cannula oxygen. He is requiring more supplemental oxygen today compared to yesterday. Not in any respiratory distress. Still has low chest pain with breathing, but no new complaints or problems re ported. He was not in any respiratory distress when I evaluated him. He is not coughing up any mucu s. No diarrhea. No vomiting. Objective: Vital Signs: Reviewed. Laboratory Data: Sodium 146, potassium 4.5, chloride 115, bicarb 27, BUN 25, creatinine 0.97, glucos e 245. CRP 13.4. Chest x-ray remains unchanged today from yesterday. Impression: 1.COVID-19 infection. 2.COVID-19 pneumonia. 3.Acute respiratory failure with hypoxia. 4.Diabetes mellitus. 5.Anemia. 6.Hypertension. Plan: We will continue current medication. Continue steroids, remdesivir, and current antibiotics. We will continue to follow with Dr. Reddy. In last 48 hours or so, the patient is requiring more and more supplemental oxygen and overall we are concerned about his deterioration. We will have to continue to monitor him closely. The patient's family has been communicating with the nursing staff to get updates on a daily basis. EMI/MODL Voice ID: [id number] Report ID: [id number]
[2021-04-04] MEDS ORDERED: TOCILIZUMAB 800 MG in NA CHLORIDE 0.9% 60 ML IV ONE ×2 (13:00→16:00)
[2021-04-04] MEDS: ATORVASTATIN 20 MG TAB PO SCH (20:10)
[2021-04-04] MEDS: lisinopriL 10 MG TAB PO SCH (20:10)
[2021-04-04] MEDS: AZITHROMYCIN IV 250 MG in NA CHLORIDE 0.9% 250 ML IVPB SCH (20:11)
[2021-04-05] MEDS: HEPARIN 5000 UNIT/ML 1 ML VIAL SQ SCH ×3 (00:20→16:53)
[2021-04-05 06:20] LABS: Absolute Lymphocytes (CBC) 0.4 K/uL (0.7-4.9); Basophils % 0.1 % (0-1.3); Hematocrit 34.3 % (39.6-49.0); Lymphocytes % 5.7 % (15.3-44.8); MPV 7.9 fL (7.6-11.3); RBC Red Blood Cell Count 4.16 M/uL (4.33-5.43)
[2021-04-05 06:36] LABS: Albumin 2.3 g/dL (3.4-5.0); Bilirubin Total 0.2 mg/dL (0.2-1.0); C-Reactive Protein 4.15 mg/L (<3.00); Potassium 4.8 mmol/L (3.5-5.1); Protein, Total 6.2 g/dL (6.4-8.2)
[2021-04-05] MEDS: METHYLPREDNISOLONE 125 MG INJ IV SCH ×3 (07:58→20:27)
[2021-04-05] MEDS: METOPROLOL TAR 50 MG TAB PO SCH ×2 (07:59→20:25)
[2021-04-05] MEDS: ASPIRIN EC 81 MG TAB PO SCH (07:59)
[2021-04-05] MEDS: ASCORBIC ACID 500 MG TABLET PO SCH (07:59)
[2021-04-05] MEDS: VITAMIN D 1000 UNIT TAB PO SCH (07:59)
[2021-04-05] MEDS: ZINC SULFATE 220 MG CAP PO SCH (07:59)
[2021-04-05] MEDS: AMLODIPINE 10 MG TAB PO SCH (08:00)
[2021-04-05] MEDS: REMDESIVIR (EUA) 100 MG in NA CHLORIDE 0.9% 250 ML IV SCH (08:00)
[2021-04-05] MEDS: GABAPENTIN 300 MG CAP PO SCH ×2 (08:00→20:26)
[2021-04-05] MEDS: CEFTRIAXONE/SWI 1gm 1 GM/10 ML SYR IV SCH ×2 (08:01→20:26)
[2021-04-05] MEDS: INSULIN -REGULAR HUMAN 50 UNIT/0.5 ML ML SQ SCH ×4 (08:01→20:27)
[2021-04-05] MEDS: INSULIN GLARGINE 100 UNITS/ML SQ SCH ×2 (08:04→20:27)
--- NOTE | 2021-04-05 10:51 | PN ---
Date of Progress Note: 04/04/2021 Subjective: The patient was seen this morning for followup. No new complaints or problems reported. He was evaluated via tele visit that included audio and video component. Objective: Vital signs reviewed. Laboratory Data: Total bilirubin 0.2, AST 21, ALT 42, alkaline phosphatase 61. Fingerstick blood smalls gar readings reviewed. Impression: 1.COVID-19 infection. 2.COVID-19 pneumonia. 3.Acute respiratory failure with hypoxia. 4.Type 2 diabetes mellitus, uncontrolled, due to steroid. Plan: We will go ahead and continue to follow with Dr. Reddy. Continue current remdesivir and an tibiotics and IV steroids, oxygen replacement therapy, and heparin for DVT prophylaxis 5000 units sub cutaneous injection every 8 hours. We will repeat blood work tomorrow. We will continue to follow w joni Reddy. He is going to look into other treatment modalities like Actemra. EMI/MODL Voice ID: [id number] Report ID: [id number]
--- NOTE | 2021-04-05 11:19 | P.PN ---
Subjective Date of Service: 04/05/21 Chief Complaint: COVID penumonia Subjective: Improving (Stable) Review of Systems General: Weakness Respiratory: Shortness of Breath Physical Examination - Vital Signs Temperature: 97.6 F Blood Pressure: 137/83 Pulse: 58 Respirations: 24 Pulse Ox (%): 95 - Physical Exam General: Alert, Oriented x3, Cooperative Assessment & Plan - Problems (Diagnosis) (1) Pneumonia Current Visit: Yes Status: Acute Plan: Resp failure S/p Actemera/ On Max therapy/ o2 requirement declining/ DC Antibiotics Qualifiers: Pneumonia type: due to unspecified organism
--- NOTE | 2021-04-05 13:07 | RAD REPORT ---
EXAM DESCRIPTION: Domenico Single View04/05/2021 12:45 pm CLINICAL HISTORY: Chest pain COMPARISON: April 03, 2021 FINDINGS: Moderate bilateral pulmonary opacities are slightly improved. Heart remains enlarged IMPRESSION: Slight improvement in bilateral pulmonary opacities probably pneumonia
--- NOTE | 2021-04-05 18:42 | PN ---
Date of Progress Note: 04/05/2021 Subjective: The patient was evaluated this morning for followup visit. He was evaluated via tele vi sit that included audio and video component. He was lying in bed, not in distress. Denied any new c omplaints. He is on high-flow nasal cannula oxygen and overall requiring slightly less oxygen today compared to yesterday. He has a good appetite. He tends to do better when he sleeps on the side, ei ther left or right side compared to sleeping on his back and nursing staff has been encouraging him t o do so. Vital signs reviewed. Yesterday, he was very tired and slept most of the day and I have en couraged him to try to spend more time in the chair during day time today. Laboratory Data: White count 7.8, hemoglobin 11.6, platelets 316. Sodium 144, potassium 4.8, chlori de 115, bicarb 27, BUN 24, creatinine 0.98, glucose 194. Liver function tests unremarkable. C-react gonzález protein 4.15. Impression: 1.COVID-19 infection. 2.COVID-19 pneumonia. 3.Acute respiratory failure with hypoxia. 4.Anemia, unspecified. 5.Type 2 diabetes mellitus, uncontrolled. Plan: We will continue current steroid therapy. The patient did receive 1 dose of Actemra yesterday . He has received remdesivir per order and we will continue IV steroid. Fingerstick blood sugar gallo stoll reviewed. I have adjusted insulin dose and we will increase Lantus insulin from 15 units 2 pramod es a day up to 20 units 2 times a day and continue sliding scale insulin as well. Continue current antibiotics. We will continue to francisca crowe with Dr. Reddy. EMI/MODL Voice ID: [id number] Report ID: [id number]
[2021-04-05] MEDS: AZITHROMYCIN IV 250 MG in NA CHLORIDE 0.9% 250 ML IVPB SCH (20:25)
[2021-04-05] MEDS: ATORVASTATIN 20 MG TAB PO SCH (20:26)
[2021-04-05] MEDS: lisinopriL 10 MG TAB PO SCH (20:26)
[2021-04-06] MEDS: HEPARIN 5000 UNIT/ML 1 ML VIAL SQ SCH ×3 (00:59→16:10)
--- NOTE | 2021-04-06 07:16 | RAD REPORT ---
EXAM DESCRIPTION: RAD - Chest Single View - 04/06/2021 5:04 am CLINICAL HISTORY: pneumonia COMPARISON: Chest Single View dated 04/05/2021; Chest Single View dated 04/03/2021; Chest Single View d ated 04/02/2021; Chest Single View dated 04/01/2021 FINDINGS: Widespread bilateral airspace disease without significant change compared with 04/05/21. Th e heart size is unchanged.No acute osseous abnormality. No significant pleural effusions or pneumotho rax. IMPRESSION: Similar widespread bilateral airspace disease consistent with multifocal pneumonia.
[2021-04-06] MEDS: GABAPENTIN 300 MG CAP PO SCH ×2 (08:28→21:38)
[2021-04-06] MEDS: METOPROLOL TAR 50 MG TAB PO SCH ×2 (08:28→21:37)
[2021-04-06] MEDS: ASPIRIN EC 81 MG TAB PO SCH (08:28)
[2021-04-06] MEDS: VITAMIN D 1000 UNIT TAB PO SCH (08:28)
[2021-04-06] MEDS: ASCORBIC ACID 500 MG TABLET PO SCH (08:29)
[2021-04-06] MEDS: ZINC SULFATE 220 MG CAP PO SCH (08:29)
[2021-04-06] MEDS: AMLODIPINE 10 MG TAB PO SCH (08:29)
[2021-04-06] MEDS: INSULIN GLARGINE 100 UNITS/ML SQ SCH ×3 (08:30→21:52)
[2021-04-06] MEDS: CEFTRIAXONE/SWI 1gm 1 GM/10 ML SYR IV SCH ×2 (08:30→21:36)
[2021-04-06] MEDS: METHYLPREDNISOLONE 125 MG INJ IV SCH ×3 (08:30→21:38)
[2021-04-06] MEDS: INSULIN -REGULAR HUMAN 50 UNIT/0.5 ML ML SQ SCH ×4 (08:31→21:52)
[2021-04-06 08:37] LABS: ALT/SGPT 52 U/L (12-78); AST/SGOT 28 U/L (15-37); Albumin 2.2 g/dL (3.4-5.0); Alkaline Phosphatase 61 U/L (45-117); Bilirubin Direct < 0.1 mg/dL (0-0.2); Bilirubin Total 0.3 mg/dL (0.2-1.0); Protein, Total 5.9 g/dL (6.4-8.2)
[2021-04-06] MEDS: BENZONATATE 100 MG CAP PO PRN (08:56)
[2021-04-06] MEDS: REMDESIVIR (EUA) 100 MG in NA CHLORIDE 0.9% 250 ML IV SCH (09:00)
[2021-04-06] MEDS: AZITHROMYCIN IV 250 MG in NA CHLORIDE 0.9% 250 ML IVPB SCH (21:00)
[2021-04-06] MEDS: ATORVASTATIN 20 MG TAB PO SCH (21:37)
[2021-04-06] MEDS: lisinopriL 10 MG TAB PO SCH (21:37)
[2021-04-07] MEDS: HEPARIN 5000 UNIT/ML 1 ML VIAL SQ SCH ×3 (00:35→17:02)
--- NOTE | 2021-04-07 01:07 | PN ---
Date of Progress Note: 04/06/2021 Subjective: The patient was seen this evening via tele visit that included audio and video component . He was lying in bed, on high-flow nasal cannula oxygen. Denies any complaints. Has a good appeti te. Denies any shortness of breath, nausea, vomiting. He is ambulating in the room. Vital signs re viewed. Labs: There was no new labs today except liver . Fingerstick blood sugar readings were re viewed. Impression: 1.COVID-19 illness. 2.COVID-19 pneumonia. 3.Acute respiratory failure with hypoxia. 4.Type 2 diabetes mellitus, uncontrolled, due to steroid. 5.Hypertension. Plan: We will continue current medications. Continue current steroid. Insulin per order. We will also continue current antibiotics. We will repeat blood work tomorrow and I will see him tomorrow fo r followup. EMI/MODL Voice ID: [id number] Report ID: [id number]
[2021-04-07 06:30] LABS: Absolute Lymphocytes (CBC) 0.4 K/uL (0.7-4.9); Lymphocytes % 4.2 % (15.3-44.8); MPV 7.9 fL (7.6-11.3); RBC Red Blood Cell Count 4.09 M/uL (4.33-5.43)
[2021-04-07 06:48] LABS: ALT/SGPT 52 U/L (12-78); AST/SGOT 21 U/L (15-37); Albumin 2.2 g/dL (3.4-5.0); Alkaline Phosphatase 65 U/L (45-117); BUN Blood Urea Nitrogen 31 mg/dL (7-18); Bicarbonate 27 mmol/L (21-32); Bilirubin Total 0.2 mg/dL (0.2-1.0); Glucose Level 186 mg/dL (74-106); Magnesium 2.2 mg/dL (1.8-2.4); Potassium 4.6 mmol/L (3.5-5.1); Protein, Total 5.6 g/dL (6.4-8.2); Sodium Level 144 mmol/L (136-145)
[2021-04-07 06:50] LABS: C-Reactive Protein < 2.90 mg/L (<3.00)
[2021-04-07 08:42] LABS: Blood Morphology Comment NOTED (NOT SEEN); Burr Cells 1+; Platelet Estimate ADEQ; White Blood Cell Scan OK (OK)
[2021-04-07] MEDS: CEFTRIAXONE/SWI 1gm 1 GM/10 ML SYR IV SCH ×2 (09:12→19:51)
[2021-04-07] MEDS: ZINC SULFATE 220 MG CAP PO SCH (09:12)
[2021-04-07] MEDS: AMLODIPINE 10 MG TAB PO SCH (09:13)
[2021-04-07] MEDS: GABAPENTIN 300 MG CAP PO SCH ×2 (09:13→19:50)
[2021-04-07] MEDS: VITAMIN D 1000 UNIT TAB PO SCH (09:14)
[2021-04-07] MEDS: ASPIRIN EC 81 MG TAB PO SCH (09:14)
[2021-04-07] MEDS: METOPROLOL TAR 50 MG TAB PO SCH ×2 (09:14→19:51)
[2021-04-07] MEDS: INSULIN GLARGINE 100 UNITS/ML SQ SCH (09:16)
[2021-04-07] MEDS: METHYLPREDNISOLONE 125 MG INJ IV SCH ×3 (09:16→19:52)
[2021-04-07] MEDS: INSULIN -REGULAR HUMAN 50 UNIT/0.5 ML ML SQ SCH ×4 (09:18→19:56)
[2021-04-07] MEDS: ASCORBIC ACID 500 MG TABLET PO SCH (09:20)
[2021-04-07] MEDS: ATORVASTATIN 20 MG TAB PO SCH (19:51)
[2021-04-07] MEDS: lisinopriL 10 MG TAB PO SCH (19:51)
[2021-04-07] MEDS: AZITHROMYCIN IV 250 MG in NA CHLORIDE 0.9% 250 ML IVPB SCH (19:52)
--- NOTE | 2021-04-07 20:35 | PN ---
Date of Progress Note: 04/07/2021 Subjective: The patient was seen this afternoon for followup. He was evaluated via tele visit that included audio and video components. He was sitting in the bed. Denied any complaints. He is ambul ating well in the room. Has a good appetite. His last bowel movement was yesterday. Objective: Vital Signs: Reviewed. Laboratory Data: White count 10, hemoglobin 11.4, platelets 281. Sodium 144, potassium 4.6, chlorid e 115, bicarb 27, BUN 31, creatinine 1, glucose 186. Liver function tests normal. CRP less than 2.9 . Albumin level 2.2. Impression: 1.COVID-19 illness. 2.COVID-19 pneumonia. 3.Acute respiratory failure with hypoxia. 4.Anemia, unspecified. 5.Malnutrition. Plan: We will go ahead and continue current medication. Continue current steroid, antibiotic, oxyge n replacement therapy, and DVT prophylaxis using heparin. I will see him tomorrow for followup. EMI/MODL Voice ID: [id number] Report ID: [id number]
[2021-04-08] MEDS: HEPARIN 5000 UNIT/ML 1 ML VIAL SQ SCH ×3 (00:26→16:41)
[2021-04-08] MEDS: INSULIN -REGULAR HUMAN 50 UNIT/0.5 ML ML SQ SCH ×4 (07:30→19:37)
[2021-04-08] MEDS: CEFTRIAXONE/SWI 1gm 1 GM/10 ML SYR IV SCH ×2 (08:38→19:36)
[2021-04-08] MEDS: INSULIN GLARGINE 100 UNITS/ML SQ SCH ×2 (08:38→19:37)
[2021-04-08] MEDS: AMLODIPINE 10 MG TAB PO SCH (08:39)
[2021-04-08] MEDS: ASCORBIC ACID 500 MG TABLET PO SCH (08:39)
[2021-04-08] MEDS: GABAPENTIN 300 MG CAP PO SCH ×2 (08:39→19:35)
[2021-04-08] MEDS: ASPIRIN EC 81 MG TAB PO SCH (08:39)
[2021-04-08] MEDS: ZINC SULFATE 220 MG CAP PO SCH (08:39)
[2021-04-08] MEDS: VITAMIN D 1000 UNIT TAB PO SCH (08:39)
[2021-04-08] MEDS: METHYLPREDNISOLONE 125 MG INJ IV SCH ×3 (08:41→19:36)
[2021-04-08] MEDS: METOPROLOL TAR 50 MG TAB PO SCH (08:43)
--- NOTE | 2021-04-08 11:36 | PN ---
Date of Progress Note: 04/08/2021 Subjective: The patient was seen this morning for followup. No new complaints problems reported by patient. He was sitting at the bedside. Has a good appetite. Denies any chest pain or shortness of breath. No nausea, vomiting. He remains on high-flow nasal cannula oxygen. Objective: vital Signs: Reviewed. HEENT: Unremarkable. Lungs: Clear to auscultation. Not using any accessory muscles of respiration. No wheezing. No ral es. Heart: Sounds normal. Abdomen: Soft. Bowel sounds normal. No guarding, rigidity, tenderness, or distention. Extremities: No leg edema. Laboratory Data: No new labs, but fingerstick blood sugar readings reviewed. Impression: 1.COVID-19 infection. 2.COVID-19 pneumonia. 3.Acute respiratory failure with hypoxia. 4.Anemia. 5.Hypertension. 6.Diabetes mellitus, type 2. Plan: Continue current medications. Continue current insulin, which is Lantus and sliding scale ins ulin. We will repeat blood work and chest x-ray tomorrow morning. Continue heparin for DVT prophyla xis. We will go ahead and stop his azithromycin and continue ceftriaxone at this point. I will see him to [facility] for followup. EMI/MODL Voice ID: [id number] Report ID: [id number]
[2021-04-08] MEDS: ATORVASTATIN 20 MG TAB PO SCH (19:35)
[2021-04-08] MEDS: METOPROLOL TAR 25 MG TAB PO SCH (19:35)
[2021-04-08] MEDS: lisinopriL 10 MG TAB PO SCH (19:37)
[2021-04-09] MEDS: HEPARIN 5000 UNIT/ML 1 ML VIAL SQ SCH ×3 (01:06→17:16)
[2021-04-09 03:55] LABS: Absolute Lymphocytes (CBC) 0.3 K/uL (0.7-4.9); Basophils % 0.2 % (0-1.3); Hematocrit 35.6 % (39.6-49.0); Lymphocytes % 3.2 % (15.3-44.8); RBC Red Blood Cell Count 4.29 M/uL (4.33-5.43)
[2021-04-09 04:15] LABS: ALT/SGPT 58 U/L (12-78); AST/SGOT 22 U/L (15-37); Albumin 2.3 g/dL (3.4-5.0); Alkaline Phosphatase 79 U/L (45-117); BUN Blood Urea Nitrogen 32 mg/dL (7-18); Bicarbonate 27 mmol/L (21-32); Bilirubin Total 0.2 mg/dL (0.2-1.0); Glucose Level 206 mg/dL (74-106); Magnesium 2.3 mg/dL (1.8-2.4); Potassium 5.1 mmol/L (3.5-5.1); Protein, Total 5.7 g/dL (6.4-8.2); Sodium Level 144 mmol/L (136-145)
[2021-04-09 04:22] LABS: C-Reactive Protein < 2.90 mg/L (<3.00)
--- NOTE | 2021-04-09 08:25 | RAD REPORT ---
EXAM DESCRIPTION: RAD - Chest Single View - 04/09/2021 4:50 am CLINICAL HISTORY: covid COMPARISON: Chest Single View dated 04/06/2021; Chest Single View dated 04/05/2021; Chest Single View dated 04/03/2021; Chest Single View dated 04/02/2021 FINDINGS: Widespread bilateral airspace disease. Cardiomegaly.No acute osseous abnormality. No signi ficant pleural effusions or pneumothorax. IMPRESSION: Widespread bilateral airspace disease concerning for multifocal pneumonia which is uncha nged.
[2021-04-09] MEDS: ASCORBIC ACID 500 MG TABLET PO SCH (09:16)
[2021-04-09] MEDS: GABAPENTIN 300 MG CAP PO SCH ×2 (09:16→19:38)
[2021-04-09] MEDS: ZINC SULFATE 220 MG CAP PO SCH (09:16)
[2021-04-09] MEDS: METOPROLOL TAR 25 MG TAB PO SCH ×2 (09:16→19:39)
[2021-04-09] MEDS: INSULIN GLARGINE 100 UNITS/ML SQ SCH ×2 (09:17→19:40)
[2021-04-09] MEDS: INSULIN -REGULAR HUMAN 50 UNIT/0.5 ML ML SQ SCH ×4 (09:21→19:40)
[2021-04-09] MEDS: METHYLPREDNISOLONE 125 MG INJ IV SCH (09:21)
[2021-04-09] MEDS: CEFTRIAXONE/SWI 1gm 1 GM/10 ML SYR IV SCH ×2 (09:21→19:39)
[2021-04-09] MEDS: AMLODIPINE 10 MG TAB PO SCH (09:26)
[2021-04-09] MEDS: VITAMIN D 1000 UNIT TAB PO SCH (09:26)
[2021-04-09] MEDS: ASPIRIN EC 81 MG TAB PO SCH (09:26)
--- NOTE | 2021-04-09 12:38 | P.PN ---
Subjective Date of Service: 04/09/21 Chief Complaint: COVID penumonia Subjective: Improving (Doign well down to 8l/nc) Review of Systems General: Weakness Physical Examination - Vital Signs Temperature: 98.1 F Blood Pressure: 127/71 Pulse: 67 Respirations: 28 Pulse Ox (%): 91 - Physical Exam General: Alert, Oriented x3, Cooperative Assessment & Plan - Problems (Diagnosis) (1) Pneumonia due to COVID-19 virus Current Visit: Yes Status: Acute Plan: Improving reduce O2 4 l/ poss DC am/DC Antibitoics ?/labs reviwed/ Reduce steroids
--- NOTE | 2021-04-09 12:49 | PN ---
Date of Progress Note: 04/09/2021 Subjective: The patient was seen this morning for followup. He was sitting at bedside in the chair. Denied any complaints, feeling much better. He is on nasal cannula oxygen 7 to 8 L/minute and no l onger requires high-flow oxygen. Overall, he is feeling better. He has chest pain with deep breathi ng. He says it is still there, but overall significantly better. Not coughing up any mucus. No vom iting. No diarrhea. No stomach pain. He has a good appetite. Objective: Vital Signs: Reviewed. HEENT: Examination unremarkable. Lungs: Clear to auscultation. Cardiac: Heart sounds normal. Abdomen: Soft, bowel sounds normal. No guarding, rigidity, tenderness, or distention. Extremities: No leg edema. Laboratory Data: White count 10.7, hemoglobin 11.9, platelets 275. Sodium 144, potassium 5.1, chlor baldev 114, bicarb 27, BUN 32, creatinine 0.98, glucose 206. Liver function tests unremarkable. CRP le ss than 2.9. Albumin level is 2.3. Chest x-ray from today remains unchanged showing bilateral pneum onia. Impression: 1.COVID-19 illness. 2.COVID-19 pneumonia. 3.Acute respiratory failure, with hypoxia. 4.Anemia, unspecified. 5.Malnutrition. Plan: We will go ahead and continue current medications. Continue oxygen replacement therapy. We a re hoping that as the patient's condition has improved in last few days, if we see same level of impr ovement, we might be able to discharge him to go home within next 2 to 3 days with supplemental oxyge n for home use. Social Service to be consulted to start making arrangements for home oxygen and we w ill continue current medical management and I will see him tomorrow for followup. Details were discussed with the patient. EMI/MODL Voice ID: [id number] Report ID: [id number]
[2021-04-09] MEDS: METHYLPREDNISOLONE 40 MG INJ IV SCH ×2 (14:14→19:39)
[2021-04-09] MEDS: lisinopriL 10 MG TAB PO SCH (19:38)
[2021-04-09] MEDS: ATORVASTATIN 20 MG TAB PO SCH (19:39)
[2021-04-10] MEDS: HEPARIN 5000 UNIT/ML 1 ML VIAL SQ SCH ×3 (00:23→16:54)
[2021-04-10] MEDS: INSULIN -REGULAR HUMAN 50 UNIT/0.5 ML ML SQ SCH ×4 (07:30→19:48)
[2021-04-10] MEDS: INSULIN GLARGINE 100 UNITS/ML SQ SCH (08:00)
[2021-04-10] MEDS: AMLODIPINE 10 MG TAB PO SCH (09:00)
[2021-04-10] MEDS: ASPIRIN EC 81 MG TAB PO SCH (09:00)
[2021-04-10] MEDS: METOPROLOL TAR 25 MG TAB PO SCH ×2 (09:00→19:46)
[2021-04-10] MEDS: CEFTRIAXONE/SWI 1gm 1 GM/10 ML SYR IV SCH ×2 (09:43→19:45)
[2021-04-10] MEDS: ASCORBIC ACID 500 MG TABLET PO SCH (09:46)
[2021-04-10] MEDS: METHYLPREDNISOLONE 40 MG INJ IV SCH ×3 (09:48→19:47)
[2021-04-10] MEDS: GABAPENTIN 300 MG CAP PO SCH ×2 (09:48→19:45)
[2021-04-10] MEDS: ZINC SULFATE 220 MG CAP PO SCH (09:48)
[2021-04-10] MEDS: VITAMIN D 1000 UNIT TAB PO SCH (09:48)
[2021-04-10] MEDS: lisinopriL 10 MG TAB PO SCH (19:46)
[2021-04-10] MEDS: ATORVASTATIN 20 MG TAB PO SCH (19:47)
--- NOTE | 2021-04-10 21:43 | P.PN ---
Subjective Date of Service: 04/10/21 Chief Complaint: COVID penumonia Subjective: Improving (Doign well Weaned to 4 l nocomplaints) Review of Systems General: Weakness Respiratory: Shortness of Breath Physical Examination - Vital Signs Temperature: 97 F Blood Pressure: 120/80 Pulse: 79 Respirations: 20 Pulse Ox (%): 92 - Physical Exam General: Alert, Cooperative Assessment & Plan - Problems (Diagnosis) (1) Pneumonia due to COVID-19 virus Current Visit: Yes Status: Acute Plan: Doign well on 4 l of O2 /plan fro DC home am/ home O2 ordered/change to po pred/ labs rev
[2021-04-11] MEDS: HEPARIN 5000 UNIT/ML 1 ML VIAL SQ SCH ×3 (00:32→16:25)
--- NOTE | 2021-04-11 07:24 | PN ---
Date of Progress Note: 04/10/2021 Subjective: Patient was seen for followup this evening. He was evaluated via tele visit that includ ed audio and video component. He was lying in bed, not in distress. He was on 4 L nasal cannula oxy gen, maintaining adequate oxygenation and denied any complaints during day time. Nursing staff did n ot report any complaints and reported that he had a good day today. Has a good appetite. Denies any diarrhea, abdominal pain. No shortness of breath. Objective: Vital signs: Reviewed. Labs: No new labs today. Fingerstick blood sugar readings reviewed. Impression: 1.COVID-19 illness. 2.COVID-19 pneumonia. 3.Acute respiratory failure with hypoxia. 4.Diabetes mellitus. Plan: The patient's fingerstick blood sugar this morning was 82 and as a result of that, his Lantus insulin which he takes 25 units 2 times a day was discontinued. We will continue sliding scale insul in for diabetes management with monitoring of blood sugar. Continue current steroid, oxygen replacem ent therapy, and the way the patient's condition is improving in last few days, there is a good possi bility we might be able to discharge him to go home either tomorrow or day after tomorrow depending o n his oxygen requirement. Oxygen arrangement for home use was requested by Social Service, which is being made. EMI/MODL Voice ID: [id number] Report ID: [id number]
[2021-04-11] MEDS: INSULIN -REGULAR HUMAN 50 UNIT/0.5 ML ML SQ SCH ×4 (07:30→21:00)
[2021-04-11] MEDS: predniSONE 20 MG TAB PO SCH ×2 (09:39→21:09)
[2021-04-11] MEDS: CEFTRIAXONE/SWI 1gm 1 GM/10 ML SYR IV SCH ×2 (09:39→21:08)
[2021-04-11] MEDS: ASPIRIN EC 81 MG TAB PO SCH (09:39)
[2021-04-11] MEDS: VITAMIN D 1000 UNIT TAB PO SCH (09:39)
[2021-04-11] MEDS: ZINC SULFATE 220 MG CAP PO SCH (09:39)
[2021-04-11] MEDS: GABAPENTIN 300 MG CAP PO SCH ×2 (09:40→21:07)
[2021-04-11] MEDS: ASCORBIC ACID 500 MG TABLET PO SCH (09:40)
[2021-04-11] MEDS ORDERED: BISACODYL 10 MG RECTAL SUPP PR ONE (11:50)
[2021-04-11] MEDS ORDERED: POLYETHYL GLY 3350 17 GM/DOSE PO ONE (11:50)
[2021-04-11] MEDS: BENZONATATE 100 MG CAP PO PRN (21:07)
[2021-04-11] MEDS: ATORVASTATIN 20 MG TAB PO SCH (21:07)
[2021-04-12] MEDS: HEPARIN 5000 UNIT/ML 1 ML VIAL SQ SCH ×3 (01:00→16:42)
[2021-04-12] MEDS: INSULIN -REGULAR HUMAN 50 UNIT/0.5 ML ML SQ SCH ×4 (07:30→21:45)
[2021-04-12] MEDS: ASCORBIC ACID 500 MG TABLET PO SCH (08:44)
[2021-04-12] MEDS: GABAPENTIN 300 MG CAP PO SCH ×2 (08:44→21:44)
[2021-04-12] MEDS: ZINC SULFATE 220 MG CAP PO SCH (08:44)
[2021-04-12] MEDS: ASPIRIN EC 81 MG TAB PO SCH (08:44)
[2021-04-12] MEDS: VITAMIN D 1000 UNIT TAB PO SCH (08:44)
[2021-04-12] MEDS: CEFTRIAXONE/SWI 1gm 1 GM/10 ML SYR IV SCH ×2 (08:44→21:45)
[2021-04-12] MEDS: predniSONE 20 MG TAB PO SCH ×2 (08:44→21:00)
[2021-04-12] MEDS: ATORVASTATIN 20 MG TAB PO SCH (21:44)
[2021-04-12] MEDS: ACETAMINOPHEN 325 MG TABLET PO PRN (21:46)
[2021-04-13] MEDS: HEPARIN 5000 UNIT/ML 1 ML VIAL SQ SCH ×3 (01:00→16:24)
[2021-04-13 08:15] LABS: Absolute Lymphocytes (CBC) 0.4 K/uL (0.7-4.9); Basophils % 0.3 % (0-1.3); Hematocrit 35.7 % (39.6-49.0); Lymphocytes % 4.7 % (15.3-44.8); MPV 8.7 fL (7.6-11.3); RBC Red Blood Cell Count 4.25 M/uL (4.33-5.43)
[2021-04-13 08:34] LABS: ALT/SGPT 63 U/L (12-78); AST/SGOT 23 U/L (15-37); Albumin 2.4 g/dL (3.4-5.0); Alkaline Phosphatase 89 U/L (45-117); BUN Blood Urea Nitrogen 22 mg/dL (7-18); Bicarbonate 27 mmol/L (21-32); Bilirubin Total 0.3 mg/dL (0.2-1.0); Glucose Level 240 mg/dL (74-106); Magnesium 2.1 mg/dL (1.8-2.4); Protein, Total 5.4 g/dL (6.4-8.2); Sodium Level 138 mmol/L (136-145)
[2021-04-13 08:36] LABS: C-Reactive Protein < 2.90 mg/L (<3.00)
[2021-04-13 08:57] LABS: Blood Morphology Comment NOT SEEN (NOT SEEN); Platelet Estimate DECR; White Blood Cell Scan OK (OK)
[2021-04-13] MEDS: ZINC SULFATE 220 MG CAP PO SCH (09:08)
[2021-04-13] MEDS: VITAMIN D 1000 UNIT TAB PO SCH (09:09)
[2021-04-13] MEDS: predniSONE 20 MG TAB PO SCH ×2 (09:09→19:36)
[2021-04-13] MEDS: ASPIRIN EC 81 MG TAB PO SCH (09:09)
[2021-04-13] MEDS: ASCORBIC ACID 500 MG TABLET PO SCH (09:09)
[2021-04-13] MEDS: INSULIN -REGULAR HUMAN 50 UNIT/0.5 ML ML SQ SCH ×4 (09:09→21:33)
[2021-04-13] MEDS: CEFTRIAXONE/SWI 1gm 1 GM/10 ML SYR IV SCH ×2 (09:09→19:36)
[2021-04-13] MEDS: GABAPENTIN 300 MG CAP PO SCH ×2 (09:09→19:36)
--- NOTE | 2021-04-13 09:21 | RAD REPORT ---
EXAM DESCRIPTION: Domenico Single View04/13/2021 8:59 am CLINICAL HISTORY: sob COMPARISON: March 2021 FINDINGS: Mild worsening in diffuse bilateral pulmonary opacities. The heart is enlarged IMPRESSION: Mild worsening in the extensive bilateral pulmonary opacities probably pneumonia
[2021-04-13] MEDS: ACETAMINOPHEN 325 MG TABLET PO PRN (19:36)
[2021-04-13] MEDS: ATORVASTATIN 20 MG TAB PO SCH (19:36)
[2021-04-14] MEDS: HEPARIN 5000 UNIT/ML 1 ML VIAL SQ SCH (00:18)
[2021-04-14 08:58] LABS: Absolute Lymphocytes (CBC) 0.5 K/uL (0.7-4.9); Basophils % 0.2 % (0-1.3); Hematocrit 36.8 % (39.6-49.0); Lymphocytes % 5.7 % (15.3-44.8); MPV 8.7 fL (7.6-11.3); RBC Red Blood Cell Count 4.36 M/uL (4.33-5.43)
[2021-04-14] MEDS: ASPIRIN EC 81 MG TAB PO SCH (09:00)
[2021-04-14] MEDS: GABAPENTIN 300 MG CAP PO SCH ×2 (09:38→19:46)
[2021-04-14] MEDS: ASCORBIC ACID 500 MG TABLET PO SCH (09:38)
[2021-04-14] MEDS: VITAMIN D 1000 UNIT TAB PO SCH (09:38)
[2021-04-14] MEDS: ZINC SULFATE 220 MG CAP PO SCH (09:38)
[2021-04-14] MEDS: predniSONE 20 MG TAB PO SCH ×2 (09:38→19:45)
[2021-04-14] MEDS: INSULIN -REGULAR HUMAN 50 UNIT/0.5 ML ML SQ SCH ×4 (09:39→21:00)
[2021-04-14] MEDS: CEFTRIAXONE/SWI 1gm 1 GM/10 ML SYR IV SCH ×2 (09:40→19:45)
--- NOTE | 2021-04-14 14:56 | P.CNS ---
Date of Consult: 04/14/21 (Hematology) REASON FOR CONSULT: R/o HILL PT WITH ACTIVE COVID 19 INFECTION AND MULTIPLE CO-MORBIDITIES NOTED TO HAVE SUDDEN DROP IN PLATELET COUNTS (PLT 76k). hEMATOLOGY CONSULTED DUE TO CONCERN OF HILL GIVEN HEPARIN EXPOSURE SINCE MAR 28. DROP IN PLT COUNT AFTER ~ >10 DAYS. MISSING PLT COUNTS. NO THROMBOSIS. COVID PNEUMONIA ON MULTIPLE ANTIBIOTICS. CHART, PROGRESS NOTES, VITALS REVIEWED. LAB TREND ASSESSED IN DETAIL. PATIENT CONTINUES TO REQUIRE O2 SUPPORT. PLT COUNT NORMAL RANGE AT ADMISSION ON MAR 28. HEPARIN DVT PPX STARTED SINCE MAR 28. LAST DOSE OF HEPARIN APR 14 (5000 UNITS S/C) DAY 17, DROP TO 99 K DAY 18- 76K HB 12.5GM; WBC 8K; BUN CR: 22/1.02 IMPRESSION: THROMBOCYTOPENIA: MULTIFACTORIAL- MOST LIKELY FROM UNDERLYING COVID 19 INFECTION/SEPSIS. OTHER POSSIBLE ETIOLOGIES INCLUDE SUBCLINICAL DIC, MEDICATIONS ETC. LESS LIKELY TO BE HILL. (INTERMEDIATE PROBABILITY OF HILL). >> CHECK PT PTT INR FIBRINOGEN, D DIMERS, RETIC, LDH, PERIPHERAL SMEAR. SEND FOR HEPARIN PLATELET FACTOR 4 AB WITH REFLEX TO SEROTONIN RELEASE ASSAY >> STOP HEPARIN BASED PRODUCTS FOR NOW >> ALTERNATE OPTIONS FOR DVT PROPHYLAXIS WITH FONDAPARINUX 2.5MG S/C DAILY IF NO BLEEDING CONTRAINDICATIONS. MONITOR PLT COUNT DAILY. HOLD FONDAPARINUX IF PLT COUNT < 25,000 OR IF BLEEDING. >> TRANSFUSE SINGLE DONOR PLT IF PLT COUNT < 15k, OR IF BLEEDING WHEN PLT COUNT < 50k. RECOMMENDATIONS DISCUSSED WITH PRIMARY ATTENDING DR MATUTE AND STAFF. WILL FOLLOW
[2021-04-14 16:32] LABS: RBC Red Blood Cell Count 4.77 M/uL (4.33-5.43)
[2021-04-14 17:15] LABS: Protime INR 0.91
--- NOTE | 2021-04-14 17:27 | RAD REPORT ---
EXAM DESCRIPTION: USExtrem Venous W Compress Bil04/14/2021 5:16 pm CLINICAL HISTORY: leg pain COMPARISON: none FINDINGS: The common femoral, superficial femoral, popliteal and posterior tibial veins bilaterally are compressible and demonstrate augmentation. Doppler demonstrates good flow. IMPRESSION: No evidence of deep venous thrombosis involving either lower extremity.
[2021-04-14] MEDS: FONDAPARINUX SOD 2.5 MG/0.5 ML SQ SCH (18:13)
[2021-04-14 18:58] LABS: Blood Morphology Comment NOT SEEN (NOT SEEN); Platelet Estimate DECR; White Blood Cell Scan OK (OK)
--- NOTE | 2021-04-14 19:09 | P.PN ---
Subjective Date of Service: 04/14/21 Chief Complaint: COVID penumonia stable / hypoxic Review of Systems General: Weakness Respiratory: Shortness of Breath Physical Examination - Vital Signs Temperature: 98.7 F Blood Pressure: 119/69 Pulse: 89 Respirations: 23 Pulse Ox (%): 90 - Physical Exam General: Alert, Oriented x3, Cooperative Assessment & Plan - Problems (Diagnosis) (1) Pneumonia due to COVID-19 virus Current Visit: Yes Status: Acute Plan: Borderline hypoxemia/ Weak/cABG AM/ Gely COVID induced thrombocytopenia/ CBC normal/ ABG/ Monitor on 4 l/min
[2021-04-14] MEDS: ATORVASTATIN 20 MG TAB PO SCH (19:45)
[2021-04-14] MEDS: BENZONATATE 100 MG CAP PO PRN (19:46)
[2021-04-14] MEDS ORDERED: D50W 25 GM/50 ML SYRINGE IV ONE (22:36)
--- NOTE | 2021-04-14 22:41 | PN ---
Date of Progress Note: 04/13/2021 Subjective: The patient was evaluated via TeleVisit and he denied any new complaints. He remains on oxygen replacement therapy. No nausea. No vomiting. Objective: Vital signs: Reviewed. Laboratory Data: Chest x-ray shows mild worsening of his bilateral pulmonary opacity. White count 7 .6, hemoglobin 11.8, platelets 99. Sodium 138, potassium 5, chloride 109, bicarb 27, BUN 22, creatin ine 1.02, glucose 240. Liver function tests unremarkable. CRP less than 2.9. Fingerstick blood sug ar readings reviewed. Impression: 1.COVID-19 infection. 2.COVID-19 pneumonia. 3.Acute respiratory failure with hypoxia. 4.Thrombocytopenia. 5.Anemia. 6.Diabetes mellitus. Plan: We will go ahead and repeat blood work tomorrow. We will consider to discontinue heparin. I will see him tomorrow morning for followup and continue with current diabetes management. His oxygen requirement has improved today compared to yesterday. EMI/MODL Voice ID: [id number] Report ID: [id number]
--- NOTE | 2021-04-14 22:47 | PN ---
Date of Progress Note: 04/11/2021 Subjective: The patient was seen for followup. He was evaluated via tele visit that included audio and video component. No new complaints or problems reported. Vital signs reviewed. Laboratory Data: There were no new labs. Fingerstick blood sugar readings reviewed. Impression: 1.COVID-19 infection. 2.COVID-19 pneumonia. 3.Acute respiratory failure with hypoxia. 4.Diabetes mellitus. 5.Anemia, unspecified. Plan: We will go ahead and continue current medication. Continue oxygen replacement therapy. Jeffery nue steroid and continue heparin for DVT prophylaxis. EMI/MODL Voice ID: [id number] Report ID: [id number]
--- NOTE | 2021-04-14 22:50 | PN ---
Date of Progress Note: 04/14/2021 Subjective: The patient was seen this morning for followup. He was lying in bed in his room. No ne w complaints or problems reported by him. He was sleeping, easily arousable, not in any distress. H e was using nasal cannula oxygen 3-4 L/minute. Not in respiratory distress. Objective: Vital Signs: Reviewed. HEENT: Unremarkable. Lungs: Clear to auscultation. No rhonchi or rales. Heart: Sounds normal. Abdomen: Soft. Bowel sounds normal. No guarding, rigidity, tenderness, or distention. Extremities: No leg edema. Laboratory Data: Fingerstick blood sugar readings reviewed. His D-dimer today is 1420. INR 0.91. White count 8, hemoglobin 12.2, platelets 76. Impression: 1.COVID-19 infection. 2.COVID-19 pneumonia. 3.Acute respiratory failure with hypoxia. 4.Thrombocytopenia. 5.Diabetes mellitus. Plan: I have discontinued his heparin and aspirin, and I have requested consultation from hematologi st, Dr. Acevedo, and details were discussed with her. Venous Doppler of lower extremity was done, which was negative for DVT. We will continue prednisone. We will repeat blood work tomorrow romy boucher. There is no evidence of any bleeding. We will consider platelet transfusion if platelet count dr ops less than 50 and has any evidence of bleeding at that time or if platelet count drops less than 2 0 with or without bleeding. I did call the patient's njnwhyej-my-hbe and all the details were discus sed with her as well. Possible explanation for this significant thrombocytopenia could be COVID-19 i nfection complication or medications including heparin, and we need to keep in mind about heparin-ind uced thrombocytopenia as a possibility. Dr. Acevedo has started the patient on Arixtra 2.5 mg alia ly and we will repeat blood work tomorrow morning and I will communicate with family tomorrow. Plan is to discharge him to go home once the platelet count starts to show improvement. EMI/MODL Voice ID: [id number] Report ID: [id number]
--- NOTE | 2021-04-14 23:02 | PN ---
Date of Progress Note: 04/12/2021 Subjective: The patient was seen for followup via tele visit that included audio and video component . No new complaints or problems reported by nursing staff for patient. His oxygen requirement has g one up and he is not stable for discharge yet. He denies any complaints. Objective: Vital signs: Reviewed. Laboratory Data: There are no new labs today. Fingerstick blood sugar readings reviewed. Impression: 1.COVID-19 infection. 2.COVID-19 pneumonia. 3.Acute respiratory failure with hypoxia. 4.Diabetes mellitus. 5.Anemia, unspecified. Plan: We will go ahead and continue to follow with Dr. Reddy. Continue steroid medication. Cont inue heparin for DVT prophylaxis and other current medical management. Continue current diabetes man agement and once the patient's oxygen requirement goes down and condition gets stabilized, then we wi ll plan to discharge him. We will repeat chest x-ray tomorrow. EMI/MODL Voice ID: [id number] Report ID: [id number]
[2021-04-15] MEDS: DEXTROSE 10%-WATER 500 ML IV SCH (05:45)
[2021-04-15] MEDS ORDERED: DEXTROSE 10%-WATER 500 ML IV ONE (06:05)
[2021-04-15 06:16] LABS: Arterial Blood Carboxyhemoglob 0.7 % (0-1.5); Blood Gas Oxyhemoglobin 87.5 % (94-97)
[2021-04-15 06:59] LABS: Absolute Lymphocytes (CBC) 0.7 K/uL (0.7-4.9); Basophils % 0.3 % (0-1.3); Hematocrit 40.6 % (39.6-49.0); Lymphocytes % 6.2 % (15.3-44.8); RBC Red Blood Cell Count 4.82 M/uL (4.33-5.43)
[2021-04-15 07:22] LABS: Magnesium 2.1 mg/dL (1.8-2.4); Potassium 4.3 mmol/L (3.5-5.1)
[2021-04-15] MEDS: INSULIN -REGULAR HUMAN 50 UNIT/0.5 ML ML SQ SCH ×4 (07:30→21:00)
[2021-04-15] MEDS: FONDAPARINUX SOD 2.5 MG/0.5 ML SQ SCH (09:11)
[2021-04-15] MEDS: CEFTRIAXONE/SWI 1gm 1 GM/10 ML SYR IV SCH (09:11)
[2021-04-15] MEDS: predniSONE 20 MG TAB PO SCH (09:12)
[2021-04-15] MEDS: VITAMIN D 1000 UNIT TAB PO SCH (09:12)
[2021-04-15] MEDS: GABAPENTIN 300 MG CAP PO SCH ×2 (09:12→19:41)
[2021-04-15] MEDS: ASCORBIC ACID 500 MG TABLET PO SCH (09:12)
[2021-04-15] MEDS: ZINC SULFATE 220 MG CAP PO SCH (09:12)
--- NOTE | 2021-04-15 09:38 | RAD REPORT ---
EXAM DESCRIPTION: Domenico Single View04/15/2021 9:30 am CLINICAL HISTORY: Chest pain COMPARISON: April 13, 2021 FINDINGS: No significant change diffuse in the bilateral pulmonary opacities. Heart enlarged IMPRESSION: No significant change diffuse bilateral pulmonary opacities likely pneumonia
[2021-04-15] MEDS: METHYLPREDNISOLONE 40 MG INJ IV SCH ×2 (11:19→17:59)
[2021-04-15] MEDS: Levofloxacin500mg IV 500 MG/100 ML BAG IV SCH (11:19)
[2021-04-15] MEDS ORDERED: INSULIN -REGULAR HUMAN 50 UNIT/0.5 ML ML SQ ONE ×2 (13:39→20:50)
[2021-04-15] MEDS ORDERED: FUROSEMIDE 20 MG/ 2ML VIAL IV ONE (15:39)
--- NOTE | 2021-04-15 15:43 | P.PN ---
Subjective Date of Service: 04/15/21 Chief Complaint: COVID penumonia Hypoxic and SOB Review of Systems General: Weakness Respiratory: Shortness of Breath Physical Examination - Vital Signs Temperature: 98.6 F Blood Pressure: 123/67 Pulse: 95 Respirations: 24 Pulse Ox (%): 90 - Physical Exam General: Alert, Oriented x3, Cooperative, Mild distress Assessment & Plan - Problems (Diagnosis) (1) Pneumonia due to COVID-19 virus Current Visit: Yes Status: Acute Plan: Resp failure Hypoxic/ agree with higher dose of solumederol Add Levaquin and Diflucan one dose of lasix/ add Diflucan fungal infection prophylaxis
[2021-04-15] MEDS: INSULIN -REGULAR HUMAN 50 UNIT/0.5 ML ML SQ ONE ×2 (17:17→17:58)
[2021-04-15] MEDS: FLUCONAZOLE 100 MG TAB PO SCH (18:03)
[2021-04-15] MEDS: ATORVASTATIN 20 MG TAB PO SCH (19:42)
--- NOTE | 2021-04-15 20:32 | PN ---
Date of Progress Note: 04/15/2021 Subjective: The patient was seen this morning for followup. He was lying in bed, not in distress. Last night around 10 o'clock or so, the patient's nurse contacted me and informed me that the patient 's fingerstick blood sugar was around 410 or so, and according to sliding scale insulin, the patient was supposed to get 10 units of regular insulin subcutaneous injection and instead of that, the patie nt accidentally received 100 units of regular insulin subcutaneous injection as nurse did not realize her error before she gave this injections to the patient. As soon as she gave injection and realize d this, she contacted me. Immediately warehouse distribution specialist was contacted and I requested house superviso r to take over the patient's care. Orders were given for close monitoring of the patient. We did no t have any ICU bed available, so we were not able to transfer him to [facility] ICU, so we had to manage h im on the floor. Initially, we did fingerstick blood sugar every 15 minutes and appropriate orders w ere given when to start and stop IV fluid D10W. It was also advised to nursing staff to go ahead and give food to the patient, orange juice, milk, etc. with some extra sugar in it and lowest blood suga r during nighttime was 148. When I saw him this morning, he did not have any other complaints. Objective: Vital Signs: Reviewed. HEENT: Unremarkable. Lungs: Clear to auscultation. Heart: Sounds normal. Abdomen: Soft. Bowel sounds normal. No guarding, rigidity, tenderness, or distention. Extremities: No leg edema. Laboratory Data: White count 11.7, hemoglobin 13.2, platelets 78, yesterday platelet was 76. Sodium 139, potassium 4.3, chloride 107, bicarb 23, BUN 22, creatinine 1.25, glucose 131, magnesium 2.1. Impression: 1.Insulin overdose, accidental. 2.Type 2 diabetes mellitus. 3.COVID-19 infection. 4.COVID-19 pneumonia. 5.Acute respiratory failure with hypoxia. 6.Anemia, unspecified. 7.Thrombocytopenia. Plan: We will go ahead and continue current medications. The patient is on oral prednisone. I did discuss details with Dr. Reddy and in fact sometime yesterday afternoon when the patient was visit ing with his family member who were at the parking lot and the patient went out of the bed, went to t he window, and all those activities dropped his oxygen saturation and since then he has been between 8-10 L of nasal cannula oxygen. Prior to that, he was on 3-4 L nasal cannula. Today's chest x-ray r esults reviewed. Considering his oxygen requirement has gone up, we will go ahead and discontinue or al prednisone, start him on high dose IV steroid, which is Solu-Medrol 80 mg every 8 hours and also s tart him on empiric antibiotic, Levaquin [address] Reddy also has started him on fluco nazole. We will continue his Arixtra. I will see him tomorrow for followup. Continue his current o xygen replacement therapy. We will monitor his blood work tomorrow for thrombocytopenia. Today, the patient's blood sugar has started to go up and we have monitored it closely and the frequency of fin gerstick blood sugar we were able to reducing today after we established stability and he was out of the danger of any hypoglycemia from accidental insulin overdose that happened last night. I did call the patient's family, that is the patient's esanumgg-wk-xwb, and all these details were discussed wi th her including his accidental insulin overdose problem also. melter supervisor oxygen furnace will take appropriat e action from hospital side regarding this accidental insulin overdose. EMI/MODL Voice ID: [id number] Report ID: [id number]
[2021-04-15] MEDS ORDERED: D50W 25 GM/50 ML SYRINGE IV PRN (20:49)
[2021-04-15] MEDS ORDERED: GLUCAGON 1 MG/VIAL IM PRN (20:49)
[2021-04-15] MEDS ORDERED: INSULIN GLARGINE 100 UNITS/ML SQ ONE (20:56)
[2021-04-16] MEDS: METHYLPREDNISOLONE 40 MG INJ IV SCH ×3 (01:00→17:21)
[2021-04-16] MEDS: DEXTROSE 10%-WATER 500 ML IV SCH ×3 (01:45→21:45)
[2021-04-16 07:05] LABS: Absolute Lymphocytes (CBC) 0.5 K/uL (0.7-4.9); Basophils % 0.1 % (0-1.3); Hematocrit 39.7 % (39.6-49.0); Lymphocytes % 4.3 % (15.3-44.8); MPV 8.9 fL (7.6-11.3); RBC Red Blood Cell Count 4.73 M/uL (4.33-5.43)
[2021-04-16 07:09] LABS: ALT/SGPT 66 U/L (12-78); AST/SGOT 24 U/L (15-37); Albumin 2.7 g/dL (3.4-5.0); Alkaline Phosphatase 84 U/L (45-117); BUN Blood Urea Nitrogen 25 mg/dL (7-18); Bicarbonate 29 mmol/L (21-32); Bilirubin Total 0.4 mg/dL (0.2-1.0); Glucose Level 252 mg/dL (74-106); Magnesium 2.1 mg/dL (1.8-2.4); Potassium 4.6 mmol/L (3.5-5.1); Protein, Total 6.2 g/dL (6.4-8.2); Sodium Level 139 mmol/L (136-145)
[2021-04-16 07:27] LABS: C-Reactive Protein < 2.90 mg/L (<3.00)
[2021-04-16] MEDS: INSULIN -REGULAR HUMAN 50 UNIT/0.5 ML ML SQ SCH ×5 (07:30→22:30)
[2021-04-16] MEDS ORDERED: GLUCAGON 1 MG/VIAL IM PRN (09:38)
[2021-04-16] MEDS ORDERED: D50W 25 GM/50 ML SYRINGE IV PRN (09:38)
[2021-04-16] MEDS ORDERED: INSULIN GLARGINE 100 UNITS/ML SQ ONE (09:45)
[2021-04-16] MEDS: GABAPENTIN 300 MG CAP PO SCH ×2 (10:07→21:27)
[2021-04-16] MEDS: FLUCONAZOLE 100 MG TAB PO SCH (10:08)
[2021-04-16] MEDS: FONDAPARINUX SOD 2.5 MG/0.5 ML SQ SCH (10:08)
[2021-04-16] MEDS: ZINC SULFATE 220 MG CAP PO SCH (10:08)
[2021-04-16] MEDS: VITAMIN D 1000 UNIT TAB PO SCH (10:08)
[2021-04-16] MEDS: ASCORBIC ACID 500 MG TABLET PO SCH (10:08)
[2021-04-16] MEDS: Levofloxacin500mg IV 500 MG/100 ML BAG IV SCH (10:09)
--- NOTE | 2021-04-16 14:15 | PN ---
Date of Progress Note: 04/16/2021 Subjective: The patient was seen this morning for followup. He was sitting in bed. Denied any comp laints. On nasal cannula oxygen. When I saw him, his oxygen saturation was 92%, but when he started talking to me, it did drop down to 88% to 89%, but he recovers quickly back to 91% to 92%. No new c omplaints or problems reported. No constipation. No diarrhea. Objective: Vital Signs: Reviewed. HEENT: Unremarkable. Lungs: Clear to auscultation. Heart: Sounds normal. Abdomen: Soft. Bowel sounds normal. No guarding, rigidity, tenderness, or distention. Extremities: No leg edema. Laboratory Data: White count 10.9, hemoglobin 13.1, platelets 52. Sodium 139, potassium 4.6, chlori de 105, bicarb 29, BUN 25, creatinine 1.03, glucose 252. CRP less than 2.9. Liver function tests un remarkable. Impression: 1.COVID-19 infection. 2.COVID-19 pneumonia. 3.Acute respiratory failure with hypoxia. 4.Thrombocytopenia. 5.Type 2 diabetes mellitus. Plan: We will go ahead and continue current medication. Continue oxygen, steroids, current empiric antibiotics and antifungal treatment. We will continue to follow with Dr. Acevedo for thrombocyto penia. The patient has not experienced any bleeding and I did inform him that if he notices any nose bleed or coughing up blood or blood in urine or stool, he needs to inform nurse and nursing staff to inform me. I did call the patient's daughter . I will see him tomorrow for followup. EMI/MODL Voice ID: [id number] Report ID: [id number]
[2021-04-16] MEDS: ATORVASTATIN 20 MG TAB PO SCH (21:27)
[2021-04-17] MEDS: METHYLPREDNISOLONE 40 MG INJ IV SCH ×3 (00:18→16:04)
[2021-04-17 07:19] LABS: Absolute Lymphocytes (CBC) 0.4 K/uL (0.7-4.9); Basophils % 0.1 % (0-1.3); Lymphocytes % 3.5 % (15.3-44.8); MPV 9.4 fL (7.6-11.3); RBC Red Blood Cell Count 4.83 M/uL (4.33-5.43)
[2021-04-17 08:14] LABS: Blood Morphology Comment NOT SEEN (NOT SEEN); Platelet Estimate DECR; White Blood Cell Scan OK (OK)
[2021-04-17] MEDS: ASCORBIC ACID 500 MG TABLET PO SCH (08:24)
[2021-04-17] MEDS: FLUCONAZOLE 100 MG TAB PO SCH (08:24)
[2021-04-17] MEDS: VITAMIN D 1000 UNIT TAB PO SCH (08:24)
[2021-04-17] MEDS: ZINC SULFATE 220 MG CAP PO SCH (08:24)
[2021-04-17] MEDS: GABAPENTIN 300 MG CAP PO SCH ×2 (08:24→20:12)
[2021-04-17] MEDS: INSULIN -REGULAR HUMAN 50 UNIT/0.5 ML ML SQ SCH ×4 (08:27→20:12)
[2021-04-17] MEDS: Levofloxacin500mg IV 500 MG/100 ML BAG IV SCH (08:28)
[2021-04-17] MEDS: FONDAPARINUX SOD 2.5 MG/0.5 ML SQ SCH (12:52)
[2021-04-17] MEDS: DEXTROSE 10%-WATER 500 ML IV SCH (15:53)
[2021-04-17] MEDS: ATORVASTATIN 20 MG TAB PO SCH (20:12)
[2021-04-18] MEDS: METHYLPREDNISOLONE 40 MG INJ IV SCH ×4 (00:48→22:00)
[2021-04-18 04:20] LABS: Absolute Lymphocytes (CBC) 0.3 K/uL (0.7-4.9); Basophils % 0.3 % (0-1.3); Lymphocytes % 3.6 % (15.3-44.8); MPV 9.1 fL (7.6-11.3); RBC Red Blood Cell Count 4.36 M/uL (4.33-5.43)
[2021-04-18 04:47] LABS: ALT/SGPT 60 U/L (12-78); AST/SGOT 21 U/L (15-37); Albumin 2.5 g/dL (3.4-5.0); Alkaline Phosphatase 79 U/L (45-117); BUN Blood Urea Nitrogen 35 mg/dL (7-18); Bicarbonate 27 mmol/L (21-32); Bilirubin Total 0.4 mg/dL (0.2-1.0); Glucose Level 281 mg/dL (74-106); Magnesium 2.4 mg/dL (1.8-2.4); Potassium 4.9 mmol/L (3.5-5.1); Protein, Total 5.6 g/dL (6.4-8.2); Sodium Level 136 mmol/L (136-145)
[2021-04-18 04:59] LABS: C-Reactive Protein < 2.90 mg/L (<3.00)
[2021-04-18] MEDS ORDERED: D50W 25 GM/50 ML SYRINGE IV PRN ×2 (06:56→12:22)
[2021-04-18] MEDS ORDERED: GLUCAGON 1 MG/VIAL IM PRN ×2 (06:56→12:22)
[2021-04-18] MEDS: FONDAPARINUX SOD 2.5 MG/0.5 ML SQ SCH (08:09)
[2021-04-18] MEDS: FLUCONAZOLE 100 MG TAB PO SCH (08:10)
[2021-04-18] MEDS: ASCORBIC ACID 500 MG TABLET PO SCH (08:10)
[2021-04-18] MEDS: GABAPENTIN 300 MG CAP PO SCH ×2 (08:10→19:53)
[2021-04-18] MEDS: VITAMIN D 1000 UNIT TAB PO SCH (08:10)
[2021-04-18] MEDS: ZINC SULFATE 220 MG CAP PO SCH (08:11)
[2021-04-18] MEDS: INSULIN -REGULAR HUMAN 50 UNIT/0.5 ML ML SQ SCH ×4 (08:13→20:19)
[2021-04-18] MEDS: INSULIN GLARGINE 100 UNITS/ML SQ SCH (08:14)
[2021-04-18] MEDS: Levofloxacin500mg IV 500 MG/100 ML BAG IV SCH (08:22)
--- NOTE | 2021-04-18 08:36 | PN ---
Date of Progress Note: 04/17/2021 Subjective: The patient was seen this morning for followup. No new complaints or problems reported by the patient. Lying in bed, not in distress. Objective: Vital Signs: Reviewed. HEENT: Unremarkable. Lungs: Clear to auscultation. Heart: Sounds normal. Abdomen: Soft. Bowel sounds normal. No guarding, rigidity, tenderness, distention. Extremities: No leg edema. Laboratory Data: White count 12.2, hemoglobin 13.3, platelets 48. Impression: 1.COVID-19 infection. 2.COVID-19 pneumonia. 3.Acute respiratory failure with hypoxia. 4.Thrombocytopenia. 5.Type 2 diabetes mellitus. Plan: We will go ahead and continue current medication, continue Arixtra and today's CBC results dis cussed with concert singer. No need for further intervention. The patient does not have any bleeding problem at home, but the patient was advised that if he has any nosebleed, coughing up blood or blood in urine or stool, any visible signs of bleeding, need to notify. We will consider platelet transfu marline if platelet count less than 50 and any signs of bleeding or platelet count less than 20 even wit hout any signs of bleeding. We will repeat blood work tomorrow. I will see him tomorrow for followup. EMI/MODL Voice ID: [id number] Report ID: [id number]
[2021-04-18] MEDS ORDERED: INSULIN -REGULAR HUMAN 50 UNIT/0.5 ML ML IV ONE (12:22)
[2021-04-18] MEDS: DEXTROSE 10%-WATER 500 ML IV SCH (13:45)
[2021-04-18] MEDS: ATORVASTATIN 20 MG TAB PO SCH (19:53)
[2021-04-19 06:06] LABS: Absolute Lymphocytes (CBC) 0.3 K/uL (0.7-4.9); Basophils % 0.2 % (0-1.3); Hematocrit 36.3 % (39.6-49.0); Lymphocytes % 3.7 % (15.3-44.8); MPV 9.8 fL (7.6-11.3); RBC Red Blood Cell Count 4.29 M/uL (4.33-5.43)
--- NOTE | 2021-04-19 06:23 | PN ---
Date of Progress Note: 04/18/2021 Subjective: The patient was seen this morning for followup. No new complaints or problems reported by him. Denies any nosebleed or any blood in urine, stool, etc. Objective: Vital Signs: Reviewed. HEENT: Unremarkable. Lungs: Clear to auscultation. Heart: Sounds normal. Abdomen: Soft. Bowel sounds normal. No guarding, rigidity, tenderness, or distention. Extremities: No leg edema. Laboratory Data: White count 9.6, hemoglobin 12.2, platelets 41. Yesterday, platelet count was 48 a nd day before, it was 52. His chemistry today, sodium 136, potassium 4.9, chloride 105, bicarb 27, B UN 35, creatinine 1.15, glucose 281. Liver function test unremarkable. CRP less than 2.9. Impression: 1.COVID-19 infection. 2.COVID-19 pneumonia. 3.Acute respiratory failure with hypoxia. 4.Thrombocytopenia. 5.Type 2 diabetes mellitus, uncontrolled. Plan: We will go ahead and continue insulin per order. Continue oxygen replacement therapy. The pa tient is on about 6 L nasal cannula oxygen. We will continue that. Continue to monitor platelet cou nt. Continue Arixtra and will continue to follow up with university professor. So far, there is no bleeding , and I have educated the patient once again today that if he notices any bleeding problem, he needs to notify nursing staff as we will have to consider platelet transfusion at that time. We will repeat blood wo rk tomorrow. EMI/MODL Voice ID: [id number] Report ID: [id number]
[2021-04-19] MEDS: INSULIN GLARGINE 100 UNITS/ML SQ SCH (08:00)
[2021-04-19] MEDS: VITAMIN D 1000 UNIT TAB PO SCH (08:47)
[2021-04-19] MEDS: levoFLOXacin 500 MG TAB PO SCH (08:47)
[2021-04-19] MEDS: GABAPENTIN 300 MG CAP PO SCH ×2 (08:47→21:06)
[2021-04-19] MEDS: FLUCONAZOLE 100 MG TAB PO SCH (08:47)
[2021-04-19] MEDS: INSULIN -REGULAR HUMAN 50 UNIT/0.5 ML ML SQ SCH ×4 (08:48→21:06)
[2021-04-19] MEDS: METHYLPREDNISOLONE 40 MG INJ IV SCH ×2 (08:48→21:07)
[2021-04-19] MEDS: ASCORBIC ACID 500 MG TABLET PO SCH (08:48)
[2021-04-19] MEDS: ZINC SULFATE 220 MG CAP PO SCH (08:48)
[2021-04-19 09:40] LABS: Blood Morphology Comment NOT SEEN (NOT SEEN); Platelet Estimate DECR; White Blood Cell Scan OK (OK)
[2021-04-19] MEDS: DEXTROSE 10%-WATER 500 ML IV SCH (09:45)
[2021-04-19] MEDS: FONDAPARINUX SOD 2.5 MG/0.5 ML SQ SCH (12:23)
[2021-04-19] MEDS ORDERED: GLUCAGON 1 MG/VIAL IM PRN (12:43)
[2021-04-19] MEDS ORDERED: D50W 25 GM/50 ML SYRINGE IV PRN (12:43)
[2021-04-19] MEDS ORDERED: INSULIN -REGULAR HUMAN 50 UNIT/0.5 ML ML IV ONE (12:44)
[2021-04-19] MEDS: ATORVASTATIN 20 MG TAB PO SCH (21:06)
[2021-04-20] MEDS: DEXTROSE 10%-WATER 500 ML IV SCH (05:45)
[2021-04-20 06:34] LABS: Absolute Lymphocytes (CBC) 0.3 K/uL (0.7-4.9); Basophils % 0.2 % (0-1.3); Hematocrit 35.8 % (39.6-49.0); Lymphocytes % 4.8 % (15.3-44.8); MPV 9.2 fL (7.6-11.3); RBC Red Blood Cell Count 4.26 M/uL (4.33-5.43)
[2021-04-20] MEDS: INSULIN -REGULAR HUMAN 50 UNIT/0.5 ML ML SQ SCH ×4 (07:30→21:22)
--- NOTE | 2021-04-20 08:14 | PN ---
Date of Progress Note: 04/19/2021 Subjective: Patient was seen this morning for followup, no new complaints or problems reported by andrew cronin. Objective: Vital Signs: Reviewed. HEENT: Unremarkable. Lungs: Clear to auscultation. Heart: Heart sounds normal. Abdomen: Soft. Bowel sounds normal. No guarding, rigidity, tenderness, or distention. Extremities: No leg edema. Laboratory Data: CBC shows platelet count 41. Today is same as yesterday. The patient's HIT profil e test results came back negative for heparin-induced thrombocytopenia. Impression: 1.COVID-19 infection. 2.COVID-19 pneumonia. 3.Acute respiratory failure, with hypoxia. 4.Thrombocytopenia, likely due to COVID. 5.Hypertension. 6.Diabetes mellitus. Plan: We will go ahead and continue current medication. Patient's blood sugar was more than 400 eliezer und lunch time and on top of sliding scale insulin, 5 units of regular insulin IV was ordered x1 dose . Dr. Acevedo notified me that the patient's HIT profile came back negative, so at this point, we have ruled out heparin-induced thrombocytopenia as a possibility and likely etiology for thrombocyto penia is COVID-19 infection. The patient's platelet count is 41 today, stable from yesterday. We wi ll continue to monitor daily platelet count. So far, there are no signs of any bleeding. The patient is on oxygen anywhere betwe en 6-8 L nasal cannula. EMI/MODL Voice ID: [id number] Report ID: [id number]
[2021-04-20] MEDS: VITAMIN D 1000 UNIT TAB PO SCH (09:04)
[2021-04-20] MEDS: levoFLOXacin 500 MG TAB PO SCH (09:04)
[2021-04-20] MEDS: ASCORBIC ACID 500 MG TABLET PO SCH (09:04)
[2021-04-20] MEDS: ZINC SULFATE 220 MG CAP PO SCH (09:04)
[2021-04-20] MEDS: METHYLPREDNISOLONE 40 MG INJ IV SCH ×2 (09:04→21:11)
[2021-04-20] MEDS: GABAPENTIN 300 MG CAP PO SCH ×2 (09:04→21:11)
[2021-04-20] MEDS: INSULIN GLARGINE 100 UNITS/ML SQ SCH (09:05)
[2021-04-20] MEDS: FONDAPARINUX SOD 2.5 MG/0.5 ML SQ SCH (09:05)
--- NOTE | 2021-04-20 10:48 | RAD REPORT ---
EXAM DESCRIPTION: RAD - Chest Single View - 04/20/2021 10:31 am CLINICAL HISTORY: COVID Chest pain. COMPARISON: Chest Single View dated 04/15/2021; Chest Single View dated 04/13/2021; Chest Single View dated 04/09/2021; Chest Single View dated 04/06/2021 FINDINGS: Portable technique limits examination quality. Since 04/15/2021, mild improvement in bilateral pulmonary opacities are seen. The heart is mildly enl arged in size. No displaced fractures. IMPRESSION: Mild improvement in lung aeration is seen since comparative examination.
[2021-04-20] MEDS: FLUCONAZOLE 100 MG TAB PO SCH (12:13)
--- NOTE | 2021-04-20 13:30 | P.PN ---
Date of Service: 04/20/21 (Hematology) Hematology follow up. Lab trend reviewed. Plt gradually trending down. Plt ct at 40K. No evidence of bleeding. Heparin plt factor 4 positive but Serotonin release assay negative D Dimers 1420 Impression: Thrombocytopenia likely from COVID 19 coagulopathy/ medications etc. >> Monitor daily cbc and any s/s of bleeding. >> TRANSFUSE SINGLE DONOR PLT IF PLT COUNT < 15k, OR IF BLEEDING WHEN PLT COUNT < 50k. >> c/w prophylactic dose anticoagulation. HOLD anticoagulation IF PLT COUNT < 25,000 or if bleeding.
[2021-04-20] MEDS: ATORVASTATIN 20 MG TAB PO SCH (21:11)
[2021-04-21] MEDS: DEXTROSE 10%-WATER 500 ML IV SCH ×2 (01:45→02:10)
[2021-04-21 05:55] LABS: Absolute Lymphocytes (CBC) 0.3 K/uL (0.7-4.9); Basophils % 0.1 % (0-1.3); Hematocrit 35.3 % (39.6-49.0); Lymphocytes % 5.2 % (15.3-44.8); MPV 8.8 fL (7.6-11.3); RBC Red Blood Cell Count 4.21 M/uL (4.33-5.43)
[2021-04-21 06:01] LABS: Magnesium 2.2 mg/dL (1.8-2.4); Potassium 5.2 mmol/L (3.5-5.1)
--- NOTE | 2021-04-21 07:11 | PN ---
Date of Progress Note: 04/20/2021 Subjective: Patient was seen this morning for followup. No new complaints or problems reported by t he patient lying in bed, not in any distress. Objective: Vital Signs: Reviewed. HEENT: Unremarkable. Lungs: Clear to auscultation. Heart: Sounds normal. Abdomen: Soft, bowel sounds normal. No guarding, rigidity, tenderness, or distention. Extremities: No leg edema. Laboratory Data: White count 6.8, hemoglobin 12.1, platelets 40 and yesterday and day before yesterd ay platelet count was 41. Chest x-ray shows mild improvement in bilateral infiltrate. Impression: 1.COVID-19 infection. 2.COVID-19 pneumonia. 3.Acute respiratory failure with hypoxia. 4.Thrombocytopenia, likely due to COVID-19 infection. 5.Diabetes mellitus. Plan: The patient's platelet count is low, but stable at this point and there is no evidence of any bleeding. He denies any signs and symptoms of bleeding and once again he was reminded to notify nurs ing staff if he notices such problem. Meanwhile, we will continue to follow up on a daily CBC. He w as on oxygen 6 L/minute per nasal cannula since about 12:30 last night and when I saw him this romy boucher, his oxygen saturation was ranging anywhere between 92% to 96% while I was in the room with him. Nurse was advised to lower oxygen down to 5 L/minute and will see him meghanbravo young for followup. EMI/MODL Voice ID: [id number] Report ID: [id number]
[2021-04-21] MEDS ORDERED: SOD POLYSTYREN SUL 15 GM/60 ML UCUP PO ONE (07:16)
[2021-04-21] MEDS: INSULIN -REGULAR HUMAN 50 UNIT/0.5 ML ML SQ SCH ×4 (07:30→22:23)
[2021-04-21] MEDS: INSULIN GLARGINE 100 UNITS/ML SQ SCH (09:20)
[2021-04-21] MEDS: FONDAPARINUX SOD 2.5 MG/0.5 ML SQ SCH (09:21)
[2021-04-21] MEDS: levoFLOXacin 500 MG TAB PO SCH (09:22)
[2021-04-21] MEDS: FLUCONAZOLE 100 MG TAB PO SCH (09:22)
[2021-04-21] MEDS: ASCORBIC ACID 500 MG TABLET PO SCH (09:22)
[2021-04-21] MEDS: METHYLPREDNISOLONE 40 MG INJ IV SCH ×2 (09:22→20:28)
[2021-04-21] MEDS: ZINC SULFATE 220 MG CAP PO SCH (09:22)
[2021-04-21] MEDS: VITAMIN D 1000 UNIT TAB PO SCH (09:22)
[2021-04-21] MEDS: GABAPENTIN 300 MG CAP PO SCH ×2 (09:22→20:28)
--- NOTE | 2021-04-21 16:01 | P.PN ---
Subjective Date of Service: 04/21/21 Chief Complaint: COVID penumonia No change in patient's condition he continues to remain hypoxic requiring 6 to 8 L of nasal cannula oxygen Review of Systems General: Weakness Respiratory: Shortness of Breath Physical Examination - Vital Signs Temperature: 97.2 F Blood Pressure: 126/80 Pulse: 94 Respirations: 18 Pulse Ox (%): 90 - Physical Exam General: Alert, Oriented x3, Cooperative Assessment & Plan - Problems (Diagnosis) (1) Pneumonia due to COVID-19 virus Current Visit: Yes Status: Acute Plan: Respiratory failure continues to remain hypoxic and thrombocytopenic patient is mildly hyperkalemic prognosis poor most likely he had Covid induced thrombocytopenia
--- NOTE | 2021-04-21 18:52 | PN ---
Date of Progress Note: 04/21/2021 Subjective: The patient was seen this morning for followup. No new complaints or problems reported by patient, lying in bed, not in distress. While I was in the room with him, his oxygen saturation r emained between 92% to 95%. Denied any new complaints. Objective: Vital Signs: Reviewed. HEENT: Unremarkable. Lungs: Clear to auscultation. Cardiac: Heart sounds normal. Abdomen: Soft. Bowel sounds normal. No guarding, rigidity, tenderness, distention. Extremities: No leg edema. Laboratory Data: White count 6.1, hemoglobin 12.1, platelets 36. Sodium 137, potassium 5.2, chlorid e 106, bicarb 26, BUN 30, creatinine 1.06, glucose 194, magnesium 2.2. Impression: 1.COVID-19 infection. 2.Thrombocytopenia. 3.Anemia, unspecified. 4.Hyperkalemia. 5.Diabetes mellitus. 6.COVID-19 pneumonia. 7.Acute respiratory failure with hypoxia. Plan: 1.We will go ahead and give Kayexalate 30 g p.o. x1 dose. 2.We will continue to provide oxygen replacement therapy. The patient was on 6 L nasal cannula oxyg en when I saw him, and we will have nursing staff continue to cut down on the oxygen in the lung base s. Oxygen saturation remains more than 90%. Continue current Arixtra. Plan is to follow up on a CB C daily basis and plan is to discharge him to go home once platelet count improves and oxygen requirement goes down. EMI/MODL Voice ID: [id number] Report ID: [id number]
[2021-04-21] MEDS: ATORVASTATIN 20 MG TAB PO SCH (20:28)
[2021-04-22 06:18] LABS: Absolute Lymphocytes (CBC) 0.3 K/uL (0.7-4.9); Basophils % 0.2 % (0-1.3); Hematocrit 37.9 % (39.6-49.0); Lymphocytes % 5.3 % (15.3-44.8); MPV 9.1 fL (7.6-11.3); RBC Red Blood Cell Count 4.49 M/uL (4.33-5.43)
[2021-04-22 06:37] LABS: ALT/SGPT 58 U/L (12-78); AST/SGOT 25 U/L (15-37); Albumin 2.4 g/dL (3.4-5.0); Alkaline Phosphatase 95 U/L (45-117); BUN Blood Urea Nitrogen 32 mg/dL (7-18); Bicarbonate 27 mmol/L (21-32); Bilirubin Total 0.3 mg/dL (0.2-1.0); Glucose Level 273 mg/dL (74-106); Magnesium 2.1 mg/dL (1.8-2.4); Potassium 5.1 mmol/L (3.5-5.1); Protein, Total 5.5 g/dL (6.4-8.2); Sodium Level 138 mmol/L (136-145)
[2021-04-22 06:50] LABS: C-Reactive Protein < 2.90 mg/L (<3.00)
[2021-04-22] MEDS: INSULIN -REGULAR HUMAN 50 UNIT/0.5 ML ML SQ SCH ×4 (08:15→22:34)
[2021-04-22] MEDS: VITAMIN D 1000 UNIT TAB PO SCH (08:16)
[2021-04-22] MEDS: METHYLPREDNISOLONE 40 MG INJ IV SCH ×2 (08:16→21:01)
[2021-04-22] MEDS: ASCORBIC ACID 500 MG TABLET PO SCH (08:16)
[2021-04-22] MEDS: FONDAPARINUX SOD 2.5 MG/0.5 ML SQ SCH (08:16)
[2021-04-22] MEDS: FLUCONAZOLE 100 MG TAB PO SCH (08:16)
[2021-04-22] MEDS: levoFLOXacin 500 MG TAB PO SCH (08:16)
[2021-04-22] MEDS: INSULIN GLARGINE 100 UNITS/ML SQ SCH (08:17)
[2021-04-22] MEDS: ZINC SULFATE 220 MG CAP PO SCH (08:28)
[2021-04-22] MEDS: GABAPENTIN 300 MG CAP PO SCH ×2 (08:28→21:01)
--- NOTE | 2021-04-22 11:23 | RAD REPORT ---
EXAM DESCRIPTION: RAD - Chest Single View - 04/22/2021 11:16 am CLINICAL HISTORY: covid Chest pain. COMPARISON: Chest Single View dated 04/20/2021; Chest Single View dated 04/15/2021; Chest Single View dated 04/13/2021; Chest Single View dated 04/09/2021 FINDINGS: Portable technique limits examination quality. Since 04/20/2021, there has been mild worsening in bilateral pulmonary opacities noted. The heart is upper limit normal in size. No displaced fractures. IMPRESSION: Mild worsening in bilateral pulmonary opacities are seen since 04/20/2021 study.
[2021-04-22] MEDS ORDERED: FUROSEMIDE 20 MG/ 2ML VIAL IV ONE (13:43)
[2021-04-22 15:59] LABS: Blood Gas Oxyhemoglobin 90.7 % (94-97); Blood O2 Saturation 92.5 % (92-98.5)
[2021-04-22] MEDS ORDERED: MAGNESIUM HYDROXIDE 8% 30 ML PO ONE (18:13)
[2021-04-22] MEDS: DOCUSATE NA 100 MG CAP PO SCH (21:00)
[2021-04-22] MEDS: ATORVASTATIN 20 MG TAB PO SCH (21:01)
--- NOTE | 2021-04-22 23:42 | PN ---
Date of Progress Note: 04/22/2021 Patient was seen this morning for followup. Prior to my arrival to the hospital, the patient was usi ng bedside commode and apparently his oxygen saturation had dropped down into 70s and he was brought back to bed and his oxygen level did not come up satisfactorily with nasal cannula oxygen. So, he wa s placed on 100% oxygen per face mask that actually did help to raise his oxygen level up to 93% and he was stable at that level. When I enter in his room, he was sitting, appeared weaker than yesterda y because of the event what happened prior to my arrival. Denied any other complaints. Objective: Vital Signs: Reviewed. HEENT: Unremarkable. Lungs: Clear to auscultation. Heart: Sounds normal. Abdomen: Soft, bowel sounds normal. No guarding, rigidity, tenderness, or distention. Extremities: No leg edema. Laboratory Data: White count 6, hemoglobin 12.5, platelets 47. Sodium 138, potassium 5.1, chloride 107, bicarb 27, BUN 32, creatinine 1.09, glucose 273. Liver function tests unremarkable. CRP less t kraus 2.9. Chest x-ray done today shows worsening today compared to before which was 2 days ago. Impression: 1.COVID-19 infection. 2.COVID-19 pneumonia. 3.Acute respiratory failure with hypoxia. 4.Constipation. 5.Thrombocytopenia. Plan: The patient is on fluconazole, Levaquin, steroid. We will continue that. Continue current ox ygen replacement therapy and decrease the over period of day today, his oxygen requirement has gone d own and as we speak now, as of this evening, he is down to 5 L nasal cannula oxygen, maintaining good oxygenation more than 90%. He is having constipation and similar problem happened few days ago when he was constipated, so we will go ahead and give him stool softener and milk of magnesia. Platelet count is better. We will monitor electrolytes with CBC tomorrow. Details were discussed with Dr. Vadim fuentes and he has given 1 dose of furosemide. Details were also discussed with the patient's daughte r in-law on the phone. EMI/MODL Voice ID: [id number] Report ID: [id number]
[2021-04-23 06:30] LABS: Absolute Lymphocytes (CBC) 0.4 K/uL (0.7-4.9); Basophils % 0.2 % (0-1.3); Hematocrit 37.9 % (39.6-49.0); Lymphocytes % 7.8 % (15.3-44.8); MPV 8.3 fL (7.6-11.3); RBC Red Blood Cell Count 4.51 M/uL (4.33-5.43)
[2021-04-23 06:50] LABS: Potassium 4.5 mmol/L (3.5-5.1)
[2021-04-23 06:51] LABS: Magnesium 2.2 mg/dL (1.8-2.4)
[2021-04-23] MEDS: INSULIN -REGULAR HUMAN 50 UNIT/0.5 ML ML SQ SCH ×4 (07:30→21:05)
--- NOTE | 2021-04-23 08:42 | RAD REPORT ---
EXAM DESCRIPTION: Domenico Single View04/23/2021 6:55 am CLINICAL HISTORY: sob COMPARISON: April 22, 2021 FINDINGS: No significant change extensive bilateral pulmonary opacities. Heart is borderline enlarged IMPRESSION: No significant change extensive bilateral pulmonary opacities likely pneumonia
[2021-04-23] MEDS: DOCUSATE NA 100 MG CAP PO SCH ×2 (09:09→21:04)
[2021-04-23] MEDS: GABAPENTIN 300 MG CAP PO SCH ×2 (09:09→21:04)
[2021-04-23] MEDS: VITAMIN D 1000 UNIT TAB PO SCH (09:09)
[2021-04-23] MEDS: FLUCONAZOLE 100 MG TAB PO SCH (09:09)
[2021-04-23] MEDS: ASCORBIC ACID 500 MG TABLET PO SCH (09:09)
[2021-04-23] MEDS: levoFLOXacin 500 MG TAB PO SCH (09:09)
[2021-04-23] MEDS: INSULIN GLARGINE 100 UNITS/ML SQ SCH (09:10)
[2021-04-23] MEDS: ZINC SULFATE 220 MG CAP PO SCH (09:10)
[2021-04-23] MEDS: FONDAPARINUX SOD 2.5 MG/0.5 ML SQ SCH (09:10)
[2021-04-23] MEDS: METHYLPREDNISOLONE 40 MG INJ IV SCH ×2 (09:10→21:04)
[2021-04-23] MEDS ORDERED: FUROSEMIDE 20 MG/ 2ML VIAL IV ONE (11:18)
--- NOTE | 2021-04-23 11:19 | P.PN ---
Subjective Date of Service: 04/23/21 Chief Complaint: COVID penumonia Patient is feeling better this morning he is satting very well Review of Systems Respiratory: Shortness of Breath Physical Examination - Vital Signs Temperature: 97.3 F Blood Pressure: 121/80 Pulse: 90 Respirations: 18 Pulse Ox (%): 89 - Physical Exam General: Alert, Oriented x3, Cooperative Assessment & Plan - Problems (Diagnosis) (1) Pneumonia due to COVID-19 virus Current Visit: Yes Status: Acute Plan: Respiratory failure improving the need to titrate his O2 down will try and ambulate to see how fast he will recover from desaturation thrombocytopenia also improving possible discharge this week repeat another dose of Lasix chest x-ray shows bilateral severe interstitial changes
--- NOTE | 2021-04-23 11:49 | PN ---
Date of Progress Note: 04/23/2021 Subjective: The patient was seen this morning for followup. No new complaints or problems reported by the patient. Lying in bed, not in distress. He looks lot better today than yesterday. Objective: Vital Signs: Reviewed. HEENT: Unremarkable. Lungs: Clear to auscultation. Heart: Sounds normal. The patient not using any accessory muscles of respiration. Abdomen: Soft. Bowel sounds normal. No guarding, rigidity, tenderness, or distention. Extremities: No leg edema. Laboratory Data: White count 5, hemoglobin 12.6, platelets 59. Sodium 142, potassium 4.5, chloride 108, bicarb 30, BUN 29, creatinine 0.95, glucose 98, magnesium 2.2. Impression: 1.COVID-19 infection. 2.COVID-19 pneumonia. 3.Acute respiratory failure with hypoxia. 4.Thrombocytopenia, improving. 5.Constipation. 6.Type 2 diabetes mellitus. Plan: We will continue stool softener per order and continue current oxygen. He is on 5 L/minute na melba cannula oxygen. When I entered his room, his oxygen saturation was 91% and when he was talking t o me, it dropped down to 88% for just 2 to 3 seconds and then he recovered very well immediately back to 92%. Chest x-ray done yesterday reviewed. Today's chest x-ray also shows no change from yesterd ay. Details were discussed with Dr. Reddy. Our plan is to continue current management and depend ing on how his platelet count and oxygenation is, plan is to discharge him to go home sometime this coming week. I will call his qufxnloj-hq-hen to gi ve her update today. EMI/MODL Voice ID: [id number] Report ID: [id number]
[2021-04-23] MEDS: ATORVASTATIN 20 MG TAB PO SCH (21:04)
[2021-04-24] MEDS: GABAPENTIN 300 MG CAP PO SCH (09:40)
[2021-04-24] MEDS: INSULIN GLARGINE 100 UNITS/ML SQ SCH (09:40)
[2021-04-24] MEDS: ASCORBIC ACID 500 MG TABLET PO SCH (09:41)
[2021-04-24] MEDS: levoFLOXacin 500 MG TAB PO SCH (09:41)
[2021-04-24] MEDS: VITAMIN D 1000 UNIT TAB PO SCH (09:42)
[2021-04-24] MEDS: DOCUSATE NA 100 MG CAP PO SCH (09:42)
[2021-04-24] MEDS: INSULIN -REGULAR HUMAN 50 UNIT/0.5 ML ML SQ SCH ×2 (09:42→12:53)
[2021-04-24] MEDS: ZINC SULFATE 220 MG CAP PO SCH (09:42)
[2021-04-24] MEDS: METHYLPREDNISOLONE 40 MG INJ IV SCH (09:42)
[2021-04-24] MEDS: FLUCONAZOLE 100 MG TAB PO SCH (09:42)
[2021-04-24 09:43] LABS: Absolute Lymphocytes (CBC) 0.4 K/uL (0.7-4.9); Basophils % 0.2 % (0-1.3); Lymphocytes % 8.5 % (15.3-44.8); MPV 8.7 fL (7.6-11.3); RBC Red Blood Cell Count 4.67 M/uL (4.33-5.43)
[2021-04-24] MEDS: FONDAPARINUX SOD 2.5 MG/0.5 ML SQ SCH (09:43)
[2021-04-24 12:45] VITALS: BP 106/78; TEMP 98
[2021-04-24 13:57] VITALS: O2SAT 92
--- NOTE | 2021-04-25 07:48 | DS ---
Date of Discharge: 04/24/2021 Disposition: Discharged to go home. Physical Examination: HEENT: Unremarkable. Lungs: Clear to auscultation. Heart: Sounds normal. Abdomen: Soft. Bowel sounds normal. No guarding, rigidity, tenderness, distention. Extremities: No leg edema. Final Diagnoses: 1.COVID-19 infection. 2.COVID-19 pneumonia. 3.Acute respiratory failure with hypoxia. 4.Acute kidney injury. 5.Hypertension. 6.Type 2 diabetes mellitus. 7.Hyperlipidemia. 8.Restless leg syndrome. 9.Chronic kidney disease, stage 3A. Hospital Course: This is a 70-year-old male patient, who was admitted to the hospital with complaint s of nausea, vomiting, diarrhea, and fainting type of feeling. Please see dictated H and P for more information. After the patient was evaluated in ER, he was diagnosed as having COVID-19 infection an d acute kidney injury and he was admitted to the hospital. His BUN was 28, creatinine 1.94 upon admi ssion. COVID-19 test was positive. CAT scan of the brain was negative for any acute intracranial ch anges and chest x-ray had shown bilateral [id number] pulmonary opacities upon admission to the hospital. The patient was admitted to the hospital, was seen in consultation by Dr. Reddy. His i nitial chest x-ray had shown bilateral pulmonary opacities. During this hospitalization, his conditi on did deteriorate. He required prolonged hospital stay with this COVID-19 infection that resulted i n acute respiratory failure with hypoxia. The patient has not received his COVID-19 vaccine. He was given IV steroids and that resulted in increase in his blood sugar, which was managed with insulin i njections. At one point according to sliding scale, the patient had 10 units of regular insulin subc utaneous injection to be given. As per sliding scale instruction and instead of 10 units, nurse trina rolle up giving him 100 units of regular insulin subcutaneously and that particular night, the patient wa s monitored very closely and we managed him very aggressively at that time and he did not have any hy poglycemia problem. He did require Lantus insulin and sliding scale insulin. From time to time, he also required IV regular insulin. IV steroid was given and at some point after dose reduction, we mera d to go back up on steroid because of worsening of his lung infiltrate and worsening of hypoxia probl em. The patient never required ventilator support. He was getting heparin for DVT prophylaxis and a t one point, he developed thrombocytopenia. His heparin was discontinued and Dr. Acevedo was cons ulted from H[facility]ology [facility] and workup was done for heparin-induced thrombocytopenia and that keon p came back negative, so we believe that his thrombocytopenia was the result of COVID-19 infection. The patient did start to recover from this and today's platelet count was 76,000. His lowest platele t count was 36. There was no evidence of any bleeding related to low platelet count and the patient did not require any platelet transfusion. His chest x-ray has started to show improvement also now a nd he has had some constipation problem, which was addressed with stool softener and laxative. Overa ll, his condition is improved. Now, he has remained stable on 4 L nasal cannula oxygen maintaining o xygenation more than 90%. Today, when I was in his room, his oxygen saturation was around 93% when I walked in his room and during the entire time I was there, the lowest oxygen saturation was 92% whscooby e he was communicating with me. I have communicated with the patient's [id number] on multiple d ifferent occasions and last discussion was yesterday. Discharge Medications And Instructions: 1.Continue to take gabapentin as you were taking prior to this admission. 2.To stop aspirin, lisinopril, metformin, metoprolol, amlodipine, and atorvastatin. 3.Increase dose of Lantus insulin and take 20 units subcutaneous injection daily in morning with cristóbal winslow. 4.Check your fingerstick blood sugar level before breakfast and before supper, record it and review it with Dr. Jara at time of your appointment. 5.Check your oxygen saturation level every 2-3 hours and record it and review it with Dr. Jara at ti me of your appointment. 6.Continue to use oxygen at 4 L/minute nasal cannula all the time. 7.Avoid any exertion. 8.Start new medications as below and prescription was sent to pharmacy;. a.Eliquis 2.5 mg, take 1 tablet by mouth 2 times a day. b.Levofloxacin 500 mg, take 1 tablet by mouth daily for 1 week. c.Fluconazole 200 mg, take 1 tablet by mouth daily. d.Prednisone 10 mg, take 2 tablets by mouth 2 times a day for 1 week, then 2 tablets by mouth daily for 1 week, then 1 tablet by mouth daily for 1 week, then 1/2 tablet by mouth daily for 1 week, then stop; take it with food. 9.Follow up at my office on 04/28/2021 via tele visit. Call office for appointment. EMI/RONAK Voice ID: [id number] Report ID: [id number]
== END 2021-04-24 17:00 | disposition home or self-care (01) | DRG 177 ==
LOC: ER 20:33 → ERHOLD 03-29 00:07 → 4TH 03-29 18:50
PROVIDERS: ADMIT Internal Medicine; ATTEND Internal Medicine
DX: U07.1 COVID-19 (principal); J12.82 Pneumonia due to coronavirus disease 2019; J96.01 Acute respiratory failure with hypoxia; N17.9 Acute kidney failure, unspecified; E46 Unspecified protein-calorie malnutrition; D69.6 Thrombocytopenia, unspecified; I12.9 Hypertensive chronic kidney disease with stage 1 through stage 4 chronic kidney disease, or unspecified chronic kidney disease; E11.22 Type 2 diabetes mellitus with diabetic chronic kidney disease; N18.31 Chronic kidney disease, stage 3a; G25.81 Restless legs syndrome; E78.5 Hyperlipidemia, unspecified; K59.00 Constipation, unspecified; E87.5 Hyperkalemia; T38.3X1A Poisoning by insulin and oral hypoglycemic [antidiabetic] drugs, accidental (unintentional), initial encounter; Y92.230 Patient room in hospital as the place of occurrence of the external cause; Z68.30 Body mass index [BMI] 30.0-30.9, adult; T38.0X5A Adverse effect of glucocorticoids and synthetic analogues, initial encounter; E09.65 Drug or chemical induced diabetes mellitus with hyperglycemia
CPT/HCPCS: 36415; 70450; 71045; 76705; 80048; 80053; 80076; 82248; 82805; 82947; 83605; 83615; 83690; 83735; 83880; 84145; 84484; 85025; 85044; 85379; 85384; 85610; 85730; 86140; 87040; 87205; 87804; 93005; 93970; 94003; 94760; 96374; 96375; 99285; J0456; J0696; J1644; J1652; J1815; J1940; J2405; J2920; J2930; J3262; J7030; J7050; J7512; J7799; U0003

== ENCOUNTER 2021-05-03 08:48 | Inpatient (IN) | payer MEDICARE, OTHER ==
[2021-05-03 09:35] LABS: Basophils % 0.7 % (0-1.3); Hematocrit 40.6 % (39.6-49.0); Lymphocytes % 17.3 % (15.3-44.8); MPV 8.5 fL (7.6-11.3); Protime INR 1.03; RBC Red Blood Cell Count 4.79 M/uL (4.33-5.43)
--- NOTE | 2021-05-03 10:05 | RAD REPORT ---
EXAM DESCRIPTION: CT - Chest For Pe Angio - 05/03/2021 9:52 am CLINICAL HISTORY: Chest pain COMPARISON: 2019 TECHNIQUE: Dynamically enhanced axial 3 mm thick images of the chest were obtained during administra tion of <100> mL Isovue 370 IV contrast. Coronal and oblique reconstruction images were generated and reviewed. Exam utilizes a protocol for optimal evaluation of pulmonary arterial tree. Maximum intensity projections 3D imaging was utilized All CT scans are performed using dose optimization technique as appropriate and may include automated exposure control or mA/KV adjustment according to patient size. FINDINGS: A pulmonary embolus is not seen. A thoracic aortic aneurysm is not noted. A pleural effusion is not seen. A pericardial effusion is not seen. Moderate bilateral ground-glass opacities within the lungs. Mild pneumomediastinum. Cholelithiasis IMPRESSION: Negative for a pulmonary embolism. Mild pneumomediastinum Moderate bilateral ground-glass opacities within the lungs can be seen with Covid pneumonia
[2021-05-03 10:08] LABS: Albumin 2.5 g/dL (3.4-5.0); Bilirubin Direct 0.1 mg/dL (0-0.2); Bilirubin Total 0.3 mg/dL (0.2-1.0); Magnesium 1.9 mg/dL (1.8-2.4); Potassium 4.5 mmol/L (3.5-5.1); Protein, Total 6.5 g/dL (6.4-8.2); Troponin (Emerg Dept Use Only) 0.15 ng/mL (0.0-0.045)
[2021-05-03 10:22] LABS: Blood Morphology Comment NOTED (NOT SEEN); Platelet Estimate DECR; White Blood Cell Scan OK (OK)
--- NOTE | 2021-05-03 11:32 | ER ---
Nurse's Notes [facility] Name: Evans Espinosa Age: 70 yrs Sex: Male : 1950 Arrival Date: 05/03/2021 Time: 09:02 Bed 7 Private MD: Diagnosis: Dyspnea, unspecified;Viral pneumonia, unspecified;Subsequent non-ST elevation (NSTEMI) myocardial infarction Presentation: 05/03 09:03 Chief complaint: EMS states: "pt was in the low 90's oxygen saturation with 2 L and in jd3 the 80's when he was lying flat. family is reporting shortness of breath, but the pt denies shortness of breath, just a small pain under the right arm that come up through the shoulder.". Coronavirus screen: difficulty breathing, Client presents with at least one sign or symptom that may indicate coronavirus-19. Standard/surgical mask placed on the client. Provider contacted for isolation considerations. Ebola Screen: Patient negative for fever greater than or equal to 101.5 degrees Fahrenheit, and additional compatible Ebola Virus Disease symptoms. Initial Sepsis Screen: Does the patient meet any 2 criteria? No. Patient's initial sepsis screen is negative. Does the patient have a suspected source of infection? No. Patient's initial sepsis screen is negative. Risk Assessment: Do you want to hurt yourself or someone else? Patient reports no desire to harm self or others. Onset of symptoms was May 03, 2021. 09:03 Method Of Arrival: EMS: [facility] jd3 09:03 Acuity: MEÑO 3 jd3 09:43 Note Xarelto and prednisone taken this AM. jd3 Historical: - Allergies: 09:09 No Known Allergies; jd3 - Home Meds: 09:09 amlodipine oral [Active]; Aspirin Oral [Active]; insulin [Active]; lisinopril Oral jd3 [Active]; Metformin Oral [Active]; Metoprolol Tartrate Oral [Active]; - PMHx: 09:09 Diabetes - NIDDM; Hypertension; jd3 - PSHx: 09:09 None; jd3 - Immunization history:: Adult Immunizations up to date. - Social history:: Smoking status: Patient reports use of chewing tobacco. Screenin:11 Abuse screen: Denies threats or abuse. Nutritional screening: No deficits noted. jd3 Tuberculosis screening: No symptoms or risk factors identified. Fall Risk Ambulatory Aid- None/Bed Rest/Nurse Assist (0 pts). Gait- Normal/Bed Rest/Wheelchair (0 pts) Mental Status- Oriented to own ability (0 pts). Total Andres Fall Scale indicates No Risk (0-24 pts). Assessment: 09:11 General: Appears in no apparent distress. comfortable, Behavior is calm, cooperative, jd3 appropriate for age. Pain: Complains of pain in right lateral anterior chest and right shoulder Quality of pain is described as aching, pressure. Neuro: Level of Consciousness is awake, alert, obeys commands, Oriented to person, place, time, situation. Cardiovascular: Capillary refill < 3 seconds Patient's skin is warm and dry. Rhythm is regular. Respiratory: Reports shortness of breath at rest Airway is patent Respiratory effort is even, unlabored, Respiratory pattern is regular, symmetrical, Denies cough, labored breathing. GI: No signs and/or symptoms were reported involving the gastrointestinal system. : No signs and/or symptoms were reported regarding the genitourinary system. EENT: No signs and/or symptoms were reported regarding the EENT system. Derm: Skin is intact, Skin is dry, Skin is normal, Skin temperature is warm. Musculoskeletal: Circulation, motion, and sensation intact. Range of motion: intact in all extremities. 14:10 Reassessment: Patient appears in no apparent distress at this time. Patient and/or jd3 family updated on plan of care and expected duration. Pain level reassessed. Patient is alert, oriented x 3, equal unlabored respirations, skin warm/dry/pink. Patient states feeling better. 16:08 Reassessment: Patient appears in no apparent distress at this time. Patient and/or jd3 family updated on plan of care and expected duration. Pain level reassessed. Patient is alert, oriented x 3, equal unlabored respirations, skin warm/dry/pink. awaiting admission. Vital Signs: 09:10 BP 112 / 96; Pulse 112; Resp 22 S; Temp 97.9(O); Pulse Ox 87% on R/A; Weight 90.72 kg jd3 (R); Height 5 ft. 9 in. (175.26 cm) (R); Pain 7/10; 09:11 Pulse Ox 95% on 2 lpm NC; jd3 10:25 BP 118 / 84; Pulse 94; Resp 18; Pulse Ox 100% ; ap3 14:11 BP 94 / 67; Pulse 98; Resp 23 S; Pulse Ox 95% on 2 lpm NC; jd3 16:08 BP 98 / 76; Pulse 79; Resp 22 S; Pulse Ox 99% on 2 lpm NC; jd3 09:10 Body Mass Index 29.54 (90.72 kg, 175.26 cm) jd3 ED Course: 09:02 Patient arrived in ED. aa5 09:02 Asif Davies, SANDER is Primary Nurse. jd3 09:02 Federica Malone MD is Attending Physician. sp3 09:09 Triage completed. jd3 09:10 Arm band placed on. jd3 09:11 Patient has correct armband on for positive identification. Bed in low position. Call jd3 light in reach. Side rails up X 1. Adult w/ patient. monitor tech on. Pulse ox on. NIBP on. 09:16 Initial lab(s) drawn, by me, sent to lab. Inserted saline lock: 20 gauge in right em1 antecubital area, using aseptic technique. Blood collected. 09:52 CT Chest For PE Angio In Process Unspecified. EDMS 11:31 Josef Jara MD is Hospitalizing Provider. sp3 18:00 No provider procedures requiring assistance completed. Patient admitted, IV remains in jd3 place. Administered Medications: 11:54 Drug: NS 0.9% 500 ml Route: IV; Rate: bolus; Site: right antecubital; jd3 12:50 Follow up: Response: No adverse reaction; IV Status: Completed infusion jd3 11:54 Drug: Aspirin 325 mg Route: PO; jd3 12:50 Follow up: Response: No adverse reaction jd3 11:54 Drug: SOLU-Medrol (methylPrednisoLONE) 60 mg Route: IVP; Site: right antecubital; jd3 12:50 Follow up: Response: No adverse reaction jd3 Outcome: 11:32 Decision to Hospitalize by Provider. sp3 18:00 Admitted to ER Hold. Please see [facility] for further documentation. jd3 18:00 Condition: stable 18:00 Instructed on the need for admit. 22:53 Patient left the ED. ea Signatures: Dispatcher [employer] EDMS Jermain Moy em1 Lavern Wang, RN RN aa5 Elmira Saeed RN RN Asif Freeman RN RN jd3 Brisa Hylton RN RN ap3 Federica Malone MD MD sp3 Corrections: (The following items were deleted from the chart) 09:13 09:10 BP 112 / 96; Pulse 125bpm; Resp 22bpm; Spontaneous; Pulse Ox 87% RA; Temp 97.9F jd3 Oral; 90.72 kg Reported; Height 5 ft. 9 in. Reported; BMI: 29.5; Pain 7/10; jd3
--- NOTE | 2021-05-03 11:32 | EDPHYS ---
Physician Documentation [facility] Name: Evans Espinosa Age: 70 yrs Sex: Male : 1950 Arrival Date: 05/03/2021 Time: 09:02 Bed 7 Private MD: ED Physician Federica Malone HPI: 05/03 09:22 This 70 yrs old Male presents to ER via EMS with complaints of dyspnea. sp3 09:22 70-year-old male with a history of hypertension and diabetes who was also diagnosed sp3 with COVID-19 the first week of March 2021 and a patient of Dr. Jara now presents with continued worsening of dyspnea over the last 48 to 72 hours. Patient was hospitalized in March and discharged home on 2 L equivalent oxygen concentrator which patient was still using. Due to patient being dyspneic, EMS was activated and upon their arrival they found patient to be 92% pulse oxygenation while on the concentrator and during transfer to the stretcher he dropped to 80% while laying flat. He immediately came back up to 97% once on 4 L in the ambulance. Patient complains of dyspnea only and denies any chest pain, fever, back pain, headache, bleeding, abdominal pain, nausea, vomiting, diarrhea, productive cough, sputum production, further known sick contacts, travel history, or any other ROS at this time. While here in the emergency department, his room air pulse oxygenation was 87% and on 2 L nasal cannula it is at 97%.. Historical: - Allergies: 09:09 No Known Allergies; jd3 - Home Meds: 09:09 amlodipine oral [Active]; Aspirin Oral [Active]; insulin [Active]; lisinopril Oral jd3 [Active]; Metformin Oral [Active]; Metoprolol Tartrate Oral [Active]; - PMHx: 09:09 Diabetes - NIDDM; Hypertension; jd3 - PSHx: 09:09 None; jd3 - Immunization history:: Adult Immunizations up to date. - Social history:: Smoking status: Patient reports use of chewing tobacco. ROS: 09:25 Constitutional: Negative for fever, chills, and weight loss, Eyes: Negative for injury, sp3 pain, redness, and discharge, Neck: Negative for injury, pain, and swelling, Cardiovascular: Negative for chest pain, palpitations, and edema, Abdomen/GI: Negative for abdominal pain, nausea, vomiting, diarrhea, and constipation, Back: Negative for injury and pain, MS/Extremity: Negative for injury and deformity, Skin: Negative for injury, rash, and discoloration, Neuro: Negative for headache, weakness, numbness, tingling, and seizure, Allergy/Immunology: Negative for hives, rash, and allergies, Hematologic/Lymphatic: Negative for swollen nodes, abnormal bleeding, and unusual bruising. 09:25 Respiratory: Positive for dyspnea on exertion, orthopnea, shortness of breath, Negative for hemoptysis, sputum production. 09:25 All other systems are negative. Exam: 09:25 Constitutional: This is a well developed, well nourished patient who is awake, alert, sp3 and in no acute distress. Head/Face: Normocephalic, atraumatic. Eyes: Pupils equal round and reactive to light, extra-ocular motions intact. Lids and lashes normal. Conjunctiva and sclera are non-icteric and not injected. Cornea within normal limits. Periorbital areas with no swelling, redness, or edema. Neck: Trachea midline, no thyromegaly or masses palpated, and no cervical lymphadenopathy. Supple, full range of motion without nuchal rigidity, or vertebral point tenderness. No Meningismus. Chest/axilla: Normal chest wall appearance and motion. Nontender with no deformity. No lesions are appreciated. Respiratory: Lungs have equal breath sounds bilaterally, clear to auscultation and percussion. No rales, rhonchi or wheezes noted. No increased work of breathing, no retractions or nasal flaring. Abdomen/GI: Soft, non-tender, with normal bowel sounds. No distension or tympany. No guarding or rebound. No evidence of tenderness throughout. Back: No spinal tenderness. No costovertebral tenderness. Full range of motion. Skin: Warm, dry with normal turgor. Normal color with no rashes, no lesions, and no evidence of cellulitis. MS/ Extremity: Pulses equal, no cyanosis. Neurovascular intact. Full, normal range of motion. Neuro: Awake and alert, GCS 15, oriented to person, place, time, and situation. Cranial nerves II-XII grossly intact. Motor strength 5/5 in all extremities. Sensory grossly intact. Cerebellar exam normal. Normal gait. Psych: Awake, alert, with orientation to person, place and time. Behavior, mood, and affect are within normal limits. 09:25 Cardiovascular: Exam negative for arrhythmia, bradycardia, edema, murmur, pulse deficit, Rate: tachycardic. 10:56 ECG was reviewed by the Attending Physician. EKG demonstrates sinus tachycardia at 121 sp3 bpm with multiple PACs and nonspecific ST/T changes Vital Signs: 09:10 BP 112 / 96; Pulse 112; Resp 22 S; Temp 97.9(O); Pulse Ox 87% on R/A; Weight 90.72 kg jd3 (R); Height 5 ft. 9 in. (175.26 cm) (R); Pain 7/10; 09:11 Pulse Ox 95% on 2 lpm NC; jd3 10:25 BP 118 / 84; Pulse 94; Resp 18; Pulse Ox 100% ; ap3 14:11 BP 94 / 67; Pulse 98; Resp 23 S; Pulse Ox 95% on 2 lpm NC; jd3 16:08 BP 98 / 76; Pulse 79; Resp 22 S; Pulse Ox 99% on 2 lpm NC; jd3 09:10 Body Mass Index 29.54 (90.72 kg, 175.26 cm) jd3 MDM: 09:03 Patient medically screened. sp3 09:26 Data reviewed: vital signs, nurses notes, EMS record. ED course: 70-year-old male with sp3 continued dyspnea and post Covid syndrome. Dr. Jara notified the emergency department of this patient's arrival and requested a CT scan of the chest to assess for pneumonia and pulmonary embolism which I agree with given clinical picture. Will obtain CT, laboratory values, EKG, and monitor oxygen levels and titrate O2 appropriately. At this time I am not highly suspicious for acute coronary syndrome, thoracic aneurysm, sepsis, or shock. There is a moderate pretest probability of pulmonary embolism and he needs to be assessed for continued viral or overlying bacterial pneumonia as well. He remains afebrile and clinically stable with mild tachycardia and a 2 L oxygen requirement. Disposition to be based on patient course and data return I will discuss with Dr. Jara on this as well.. 11:32 ED course: CT scan demonstrates no pulmonary Mill[place] but does still show moderate sp3 bilateral viral pneumonia is consistent with COVID-19 residual inflammation. Pulse oxygenation remains normal at 2 L. Patient's troponin is elevated at 0.15 and we will admit patient for NSTEMI and continue trending of troponins as well as pulmonary support. I will give 1 dose of Solu-Medrol in the emergency department as well as aspirin. Patient is tachycardic but BNP is elevated. There is no pulmonary edema on CT so we will still give 500 mL of normal saline at this time.. 05/03 09:03 Order name: Basic Metabolic Panel 3 05/03 09:03 Order name: CBC with Diff; Complete Time: 11:20 3 05/03 09:03 Order name: LFT's sp3 05/03 09:03 Order name: Magnesium; Complete Time: 11:20 3 05/03 09:03 Order name: NT PRO-BNP; Complete Time: 11:20 3 05/03 09:03 Order name: PT-INR; Complete Time: 11:20 3 05/03 09:03 Order name: Troponin (emerg Dept Use Only); Complete Time: 11:20 3 05/03 09:04 Order name: Basic Metabolic Panel; Complete Time: 11:20 EDMS 05/03 09:04 Order name: Liver (Hepatic) Function; Complete Time: 11:20 EDMS 05/03 09:37 Order name: CBC Smear Scan; Complete Time: 11:20 EDMS 05/03 11:41 Order name: CKMB Creatine Kinase MB EDMS 05/03 13:29 Order name: SARS-COV-2 RT PCR EDMS 05/03 17:59 Order name: Troponin I EDMA 05/03 09:03 Order name: EKG; Complete Time: 09:04 3 05/03 09:03 Order name: Cardiac monitoring; Complete Time: 09:15 sp3 05/03 09:03 Order name: EKG - Nurse/Tech; Complete Time: 09:30 3 05/03 09:03 Order name: IV Saline Lock; Complete Time: 09:15 sp3 05/03 09:03 Order name: Labs collected and sent; Complete Time: 09:15 3 05/03 09:03 Order name: O2 Per Protocol; Complete Time: 09:15 3 05/03 09:03 Order name: O2 Sat Monitoring; Complete Time: 09:15 3 05/03 09:03 Order name: CT Chest For PE Angio; Complete Time: 11:20 sp3 09/08 21:01 Order name: Troponin I EDMS 05/03 21:55 Order name: Glucose, Ancillary Testing EDMS Administered Medications: 11:54 Drug: NS 0.9% 500 ml Route: IV; Rate: bolus; Site: right antecubital; jd3 12:50 Follow up: Response: No adverse reaction; IV Status: Completed infusion jd3 11:54 Drug: Aspirin 325 mg Route: PO; jd3 12:50 Follow up: Response: No adverse reaction jd3 11:54 Drug: SOLU-Medrol (methylPrednisoLONE) 60 mg Route: IVP; Site: right antecubital; jd3 12:50 Follow up: Response: No adverse reaction jd3 Disposition Summary: 05/03/21 11:32 Hospitalization Ordered Hospitalization Status: Inpatient Admission sp3 Provider: Josef Jara sp3 Condition: Stable sp3 Problem: new sp3 Symptoms: are unchanged sp3 Bed/Room Type: Standard sp3 Location: Telemetry/MedSurg (Inpatient)(05/03/21 22:06) tl1 Room Assignment: 428(05/03/21 22:06) tl1 Diagnosis - Dyspnea, unspecified sp3 - Viral pneumonia, unspecified sp3 - Subsequent non-ST elevation (NSTEMI) myocardial infarction sp3 Forms: - Medication Reconciliation Form sp3 - SBAR form sp3 Signatures: Dispatcher [employer] EDRox Ash, RN SANDER iw Johanny Centeno RN RN tl1 Asif Davies RN RN jd3 Federica Malone MD MD sp3 Corrections: (The following items were deleted from the chart) 11:05 09:42 CORONAVIRUS+MR.LAB.BRZ ordered. EDMS EDMS 14:35 11:32 Telemetry/MedSurg (Inpatient) sp3 iw 14:35 11:32 sp3 iw 22:06 14:35 BR ER HOLD iw tl1 22:06 14:35 ERHOLD- iw tl1
[2021-05-03] MEDS ORDERED: ASPIRIN 325 MG TAB ONE (12:11)
[2021-05-03] MEDS ORDERED: METHYLPREDNISOLONE 125 MG INJ ONE (12:11)
[2021-05-03] MEDS ORDERED: NA CHLORIDE 0.9% 500 ML ONE (12:11)
[2021-05-03] MEDS ORDERED: D50W 25 GM/50 ML SYRINGE IV PRN (17:00)
[2021-05-03] MEDS ORDERED: predniSONE 20 MG TAB PO ONE (17:00)
[2021-05-03] MEDS ORDERED: GLUCAGON 1 MG/VIAL IM PRN (17:00)
[2021-05-03] MEDS ORDERED: predniSONE 20 MG TAB ONE (18:04)
[2021-05-03 18:26] VITALS: BMI 27.8
[2021-05-03] MEDS: APIXABAN 2.5 MG TABLET PO SCH (21:00)
[2021-05-03] MEDS: GABAPENTIN 300 MG CAP PO SCH (21:00)
[2021-05-03] MEDS: INSULIN -REGULAR HUMAN 50 UNIT/0.5 ML ML SQ SCH (21:00)
[2021-05-03] MEDS: INSULIN GLARGINE 100 UNITS/ML SQ SCH (21:00)
[2021-05-03] MEDS ORDERED: INSULIN GLARGINE 100 UNITS/ML SQ ONE (22:19)
[2021-05-03] MEDS ORDERED: INSULIN -REGULAR HUMAN 50 UNIT/0.5 ML ML ONE (22:20)
[2021-05-03] MEDS ORDERED: GABAPENTIN 300 MG CAP ONE (22:21)
[2021-05-03] MEDS ORDERED: APIXABAN 5 MG TABLET ONE (22:21)
[2021-05-04 04:14] LABS: Basophils % 0.9 % (0-1.3); Hematocrit 36.6 % (39.6-49.0); Lymphocytes % 22.5 % (15.3-44.8); MPV 9.4 fL (7.6-11.3); RBC Red Blood Cell Count 4.29 M/uL (4.33-5.43)
[2021-05-04 04:23] LABS: Potassium 5.4 mmol/L (3.5-5.1)
--- NOTE | 2021-05-04 06:54 | HP ---
Date of Admission: 05/03/2021 Chief Complaint: Chest pain and low oxygen level. History Of Present Illness: This is a 70-year-old very pleasant male patient who spent almost 1 reyna h in the hospital recently with COVID infection and COVID pneumonia along with acute respiratory fail ure, hypoxia. He was discharged to go home about 1 week ago and since he went home his condition has been improving. He was down to 2.5 L/minute nasal cannula oxygen, maintaining adequate oxygenation and was doing fine until this morning. The patient's azetzbre-gq-lhr contacted my office and informe d us that the patient was having problem with right-sided chest pain that started this morning and as of last night, his oxygen requirement had gone up from 2.5 L up to 5 L/minute via nasal cannula ludwin use his oxygen saturation had dropped down into the 77% range. With this information, the patient wa s advised to come to the emergency room. After he was evaluated in the ER, he was admitted to the [facility]. I saw him in the emergency room this evening. His was present with him at bedside. Hi s right-sided chest pain that he had has resolved now. Denies any fever or any expectoration. No he moptysis. Medications: He takes, 1.Gabapentin. 2.Prednisone. 3.Eliquis. Allergies: NO KNOWN ALLERGIES. Review of Systems: Cardiovascular: As mentioned above. Respiratory: As mentioned above. All other systems reviewed and negative. Past Surgical History: Surgery on the forearm. Social History: Negative for smoking and alcohol use. Family History: Father had PA. Mother had diabetes, hypertension. Brother with hypertension. Past Medical History: Recent problem with COVID-19 infection along with COVID-19 and respiratory yessy lure with hypoxia, on home oxygen, hypertension, type 2 diabetes mellitus, restless leg syndrome, hyp erlipidemia, benign prostatic hypertrophy, and chronic kidney disease. Physical Examination: Vital Signs: Temperature 98, pulse rate 98, respiratory rate 24, blood pressure 124/86, oxygen satur ation 98% on 2 L nasal cannula oxygen, height 5 feet 11 inches, weight 200 pounds. General: Awake, alert, oriented, not in distress. HEENT: Head atraumatic, normocephalic. Conjunctivae nonerythematous. Sclerae white. Mouth, no thr ush or edema noted. Ears/Nose, no mass, lesion, discharge noted. Neck: Supple. No JVD, lymph nodes, bruit, thyromegaly noted. Lungs: Bilateral good equal air entry. Clear to auscultation. No rhonchi. No rales. Heart: Normal heart sounds, no murmur or gallop. Abdomen: Soft, bowel sounds normal. No guarding, rigidity, tenderness, mass, hepatosplenomegaly, dis tention, or bruit noted. Extremities: No leg edema. No calf tenderness. Skin: No rash, ulcer, cellulitis. Lymphatics: No lymph node enlargement in neck, supraclavicular, infraclavicular region. Neuro: No focal neurological deficit. Chest: Unremarkable. External Genitalia: Deferred. Rectal: Deferred. Laboratory Data: White count 5.6, hemoglobin 13.3, platelets 77. Sodium 135, potassium 4.5, chlorid e 102, bicarb 25, BUN 24, creatinine 1.12, glucose 269. Liver function tests are normal. Troponin 0 .15 on the first set, second set 0.13. COVID-[address] scan of the chest per PE protocol was negative for pulmonary embolism, but it did show mild pneumomediastinum and bilateral opacity co nsistent with COVID-19 pneumonia. Impression: 1.Pneumomediastinum. 2.Chest pain. 3.COVID-19 infection. 4.COVID-19 pneumonia. 5.Acute respiratory failure with hypoxia. 6.Hypertension. 7.Hyperlipidemia. 8.Type 2 diabetes mellitus. 9.Restless leg syndrome. Plan: Admit the patient to hospital for further evaluation and management of this problem. The junaid ent is appropriate for inpatient and is expected to spend 2 midnights in hospital. We will go ahead and continue his gabapentin, Eliquis, and prednisone per order. We will continue oxygen replacement therapy. We will consult Dr. Reddy from Pulmonary Service and details of plan of treatment discus sed with the patient. I will see him tomorrow for followup. We will repeat chest x-ray tomorrow janine astudillo. We will also consult Cardiology for abnormal cardiac enzymes and get an echo with Doppler. EMI/MODL Voice ID: [id number]
--- NOTE | 2021-05-04 07:29 | RAD REPORT ---
EXAM DESCRIPTION: RAD - Chest Single View - 05/04/2021 5:06 am CLINICAL HISTORY: pneumomediastinum, COVID COMPARISON: April 23 portable chest, May 03 CT chest TECHNIQUE: AP portable chest image was obtained 05/04/2021 5:06 am . FINDINGS: Interstitial and alveolar opacities are present more prominent in the left base and mid ri ght lung field. Relative sparing seen in each apex. Findings are not clearly different from the prior day CT chest Pneumomediastinum seen on the CT chest is not clearly identifiable on plain film. Cardiac silhouette is enlarged but stable. Trachea is midline. No pneumothorax identified. IMPRESSION: Bilateral airspace opacification and interstitial thickening similar to the prior day CT study.
[2021-05-04] MEDS ORDERED: SOD POLYSTYREN SUL 15 GM/60 ML UCUP PO ONE (07:59)
[2021-05-04] MEDS: predniSONE 20 MG TAB PO SCH (08:29)
[2021-05-04] MEDS: GABAPENTIN 300 MG CAP PO SCH ×2 (08:29→20:31)
[2021-05-04] MEDS: ASPIRIN EC 81 MG TAB PO SCH (08:29)
[2021-05-04] MEDS: APIXABAN 2.5 MG TABLET PO SCH ×2 (08:29→20:31)
[2021-05-04] MEDS: INSULIN -REGULAR HUMAN 50 UNIT/0.5 ML ML SQ SCH ×4 (08:29→20:31)
[2021-05-04] MEDS: INSULIN GLARGINE 100 UNITS/ML SQ SCH ×2 (08:30→20:31)
[2021-05-04] MEDS: PARoxetine HCL 10 MG TAB PO SCH (08:38)
--- NOTE | 2021-05-04 11:33 | CON ---
Date of Consultation: 05/04/2021 Reason For Consultation: Elevated troponin. History Of Present Illness: Mr. Espinosa is 70, was admitted with COVID pneumonia, shortness of breath , atypical chest pain. Has also pneumomediastinum. Dr. Reddy involved in his care. The troponin came back 0.11. His glucose 391. BNP is 1188. He is pain-free right now. He is having some short ness of breath. Denies nausea, vomiting, diaphoresis, PND, orthopnea, pedal edema, palpitations, or syncope. Has chills, but no fever. Past Medical History: Fairly unremarkable except for the diabetes. Medications: Include Eliquis, insulin, prednisone, Levaquin, and fluconazole. Review of Systems: Negative. Social History: Negative. Family History: Negative. Physical Examination: General: Very pleasant. Vital Signs: Stable, afebrile. No acute distress. Sinus rhythm. HEENT: Negative. Neck: Supple with no bruit. Chest: Clear to auscultation and percussion. Cardiac: Revealed a regular rhythm and rate. No murmurs, gallops, or rubs. Abdomen: Benign. Extremities: Revealed no clubbing, cyanosis, or edema. Diagnostic Data: As stated earlier. EKG is nonspecific. Impression And Plan: Elevated troponin and BNP, most likely secondary to demand ischemia. I agree w ith present treatment with Eliquis, insulin, prednisone, Levaquin. Dr. Reddy is involved because of pneumomediastinum. Echocardiogram is pending. We will see what that shows before making further decisions. JAI/RONAK Voice ID: [id number] Report ID: [id number]
--- NOTE | 2021-05-04 14:21 | ECHO ---
HEIGHT: 5 ft 11 in WEIGHT: 200 lb 0 oz DATE OF STUDY: 05/03/[address]: Federica Malone 2-DIMENSIONAL: YES M.MODE: YES DOPPLER: YES COLOR FLOW: YES TDS: YES PORTABLE: YES DEFINITY: NO BUBBLE STUDY: NO DIAGNOSIS: CHEST PAIN CARDIAC HISTORY: CATHERIZATION: NO SURGERY: NO PROSTHETIC VALVE: NO PACEMAKER: NO MEASUREMENTS (cm) DIASTOLIC (NORMALS) SYSTOLIC (NORMALS) IVSd 1.1 (0.6-1.2) LA Diam 2.2 (1.9-4.0) LVEF 51% LVIDd 3.7 (3.5-5.7) LVIDs 2.7 (2.0-3.5) %FS 26% LVPWd 1.1 (0.6-1.2) Ao Diam 3.3 (2.0-3.7) 2 DIMENSIONAL ASSESSMENT: RIGHT ATRIUM: NORMAL LEFT ATRIUM: NORMAL RIGHT VENTRICLE: NORMAL LEFT VENTRICLE: NORMAL TRICUSPID VALVE: NORMAL MITRAL VALVE: NORMAL PULMONIC VALVE: NORMAL AORTIC VALVE: NORMAL PERICARDIAL EFFUSION: NONE AORTIC ROOT: NORMAL LEFT VENTRICULAR WALL MOTION: UNABLE TO EVALUATE DUE TO POOR WINDOWS. DOPPLER/COLOR FLOW: SEE BELOW COMMENTS: POOR WINDOWS, BUT OVERALL LEFT VENTRICULAR EJECTION FRACTION APPEARS NORMAL. TECHNOLOGIST: Myron PAULA
[2021-05-04 21:34] VITALS: O2SAT 93
--- NOTE | 2021-05-05 06:10 | PN ---
Date of Progress Note: 05/04/2021 Subjective: The patient was seen this morning for followup. No new complaints or problems reported by patient. Lying in bed. Not in distress, on nasal cannula oxygen between 2 to 3 L/minute. Objective: Vital signs: Reviewed. HEENT: Examination unremarkable. Lungs: Clear to auscultation. Heart: Sounds normal. Abdomen: Soft, bowel sounds normal. No guarding, rigidity, tenderness, or distention. Extremities: No leg edema. Laboratory Data: White count 4.6, hemoglobin 12, platelets 80. Sodium 137, potassium 5.4, chloride 105, bicarb 28, BUN 21, creatinine 0.95, glucose 271. Impression: 1.Pneumomediastinum. 2.COVID-19 infection. 3.COVID-19 pneumonia. 4.Thrombocytopenia. 5.Hyperkalemia. 6.Diabetes mellitus, uncontrolled. Plan: We will continue current steroid medication. Give Kayexalate 30 g p.o. x1 dose for hyperkalem ia problem. We will continue insulin per order and a chest x-ray today has not shown any evidence of pneumomediastinum or pneumothorax. His pneumomediastinum was small as detected on the CAT scan and we will repeat another chest x-ray tomorrow. His right-sided chest pain has resolved. Depending on his x-ray and overall condition tomorrow, we will decide if we can possibly discharge him to go home tomorrow or not. Details were discussed with the patient's omairae r-in-law who was contacted today. EMI/MODL Voice ID: [id number] Report ID: [id number]
[2021-05-05] MEDS: INSULIN -REGULAR HUMAN 50 UNIT/0.5 ML ML SQ SCH ×3 (07:30→16:12)
[2021-05-05 07:50] LABS: Absolute Lymphocytes (CBC) 1.8 K/uL (0.7-4.9); Basophils % 0.4 % (0-1.3); Hematocrit 35.7 % (39.6-49.0); Lymphocytes % 32.2 % (15.3-44.8); MPV 8.4 fL (7.6-11.3); RBC Red Blood Cell Count 4.24 M/uL (4.33-5.43)
[2021-05-05 07:53] LABS: C-Reactive Protein 17.7 mg/L (<3.00); Potassium 4.5 mmol/L (3.5-5.1)
[2021-05-05] MEDS: INSULIN GLARGINE 100 UNITS/ML SQ SCH (08:42)
[2021-05-05] MEDS: PARoxetine HCL 10 MG TAB PO SCH (08:43)
[2021-05-05] MEDS: predniSONE 20 MG TAB PO SCH (08:43)
[2021-05-05] MEDS: GABAPENTIN 300 MG CAP PO SCH (08:43)
[2021-05-05] MEDS: APIXABAN 2.5 MG TABLET PO SCH (08:43)
[2021-05-05] MEDS: ASPIRIN EC 81 MG TAB PO SCH (08:43)
--- NOTE | 2021-05-05 09:31 | RAD REPORT ---
EXAM DESCRIPTION: RAD - Chest Single View - 05/05/2021 9:22 am CLINICAL HISTORY: covid, pneumomediastinum COMPARISON: Chest Single View dated 05/04/2021; Chest Single View dated 04/23/2021; Chest Single View d ated 04/22/2021; Chest Single View dated 04/20/2021; Chest For Pe Angio dated 05/03/2021 FINDINGS: Lines: None. Lungs: Apparent worsening of bilateral airspace disease is probably similar when comparing with the r adiograph from 04/23/2021. This is probably technique related when compared with 05/04/2021. Pleural: No significant pleural effusions or pneumothorax. Pneumomediastinum is unchanged. Cardiac: Cardiomegaly. Bones: No acute fractures. Other: IMPRESSION: Moderate bilateral airspace disease similar to 04/23/2021 . Differences in appearance of the lungs compared with 05/04/2021 favored radiologic technique related.
[2021-05-05 14:49] VITALS: BP 94/60; TEMP 97.3
== END 2021-05-05 17:09 | disposition home or self-care (01) | DRG 177 ==
LOC: ER 08:48 → ERHOLD 11:38 → 4TH 22:38
PROVIDERS: ADMIT Internal Medicine; ATTEND Internal Medicine
DX: U07.1 COVID-19 (principal); J12.82 Pneumonia due to coronavirus disease 2019; J96.01 Acute respiratory failure with hypoxia; J98.2 Interstitial emphysema; I10 Essential (primary) hypertension; E78.5 Hyperlipidemia, unspecified; E11.9 Type 2 diabetes mellitus without complications; G25.81 Restless legs syndrome; D69.6 Thrombocytopenia, unspecified; E87.5 Hyperkalemia; E11.65 Type 2 diabetes mellitus with hyperglycemia; Z99.81 Dependence on supplemental oxygen
CPT/HCPCS: 36415; 71045; 71275; 80048; 80076; 82553; 82565; 82947; 83735; 83880; 84484; 85025; 85610; 86140; 93005; 93306; 96361; 96374; 99285; J1815; J2930; J7040; J7512; Q9967; U0003

== ENCOUNTER 2023-06-22 07:10 | Emergency (ER) | payer OTHER ==
--- OUTSIDE RECORDS SUMMARY | 2023-06-22 07:12 | XMS REPORT | Continuity of Care Document ---
:[address] [facility] t Address [address] [address] Care Team Providers Name Role Phone Hugo Melendez Attending Clinician Problems Condition Condition Condition Status Onset Resolution Last Treating Co mments Source Name Details Category Date Date Treatment Clinician Date Diabetes Diabetes Problem Active 2021-04-20 Memoria mellitus mellitus 22:01:11 l (disorder) (disorder) He rmann Active Problem 04/20/2021 [facility] Dizziness Problem Active 2021-04-20 Me moria (finding) Dizziness 22:01:11 l (finding) Kenneth Active Problem 04/20/2021 [facility] Hypertensi Hypertens Problem Active 2021-04-20 Memoria ve gonzález 22:01:11 l disorder, disorder, Herm gabrielle systemic systemic arterial arterial (disorder) (disorder) Active Problem 04/20/2021 [facility] Recurrent Recurrent Problem Active 2021-04-20 Memoria falls falls 22:01:11 l (finding) (finding) Herm gabrielle Active Problem 04/20/2021 [facility] Restless Restless Problem Active 2021-04-20 Memoria legs legs 22:01:11 l (disorder) (disorder) Richard rmann Active Problem 04/20/2021 [facility] Allergies, Adverse Reactions, Alerts This patient has no known allergies or adverse reactions. Social History Social Habit Start Date Stop Date Quantity Comments Source Social History 2021-03-08 2021-03-08 [facility] ely 16:50:44 16:50:44 Medications Ordered Filled Start Stop Current Ordering Indication Dosage Frequency Signature Comments Components Source Medication Medication Date Date Medication? Clinician (SIG) Name Name metoprolol Yes 50 mg = 1 Me moria tartrate 50 7-14 tab, PO, l mg oral 16:54: BID, 0 [place] tablet 00 Refill(s) metoprolol Yes 50 mg = 1 Me moria tartrate 50 7-14 tab, PO, l mg oral 16:54: BID, 0 Kenneth tablet 00 Refill(s) Aspirin Yes 81 mg, 0 Memori a 7-14 Refill(s) l 16:52: Kenneth gabapentin Yes 300 mg, Alberto ok 7-14 PO, 0 l 16:52: Refill(s) Aspirin Yes 81 mg, 0 Memori a 7-14 Refill(s) l 16:52: Kenneth gabapentin Yes 300 mg, Alberto ok 7-14 PO, 0 l 16:52: Refill(s) Metformin Yes 500 mg, Memor ia 7-14 PO, 0 l 16:51: Refill(s) Amlodipine Yes 10 mg, PO, M emoria 7-14 Daily, 0 l 16:51: Refill(s) Lisinopril Yes 10 mg, PO, M emoria 7-14 Daily, 0 l 16:51: Refill(s) Metformin Yes 500 mg, Memor ia 7-14 PO, 0 l 16:51: Refill(s) Amlodipine Yes 10 mg, PO, M emoria 7-14 Daily, 0 l 16:51: Refill(s) Lisinopril Yes 10 mg, PO, M emoria 7-14 Daily, 0 l 16:51: Refill(s) Vital Signs Vital Name Observation Time Observation Value Comments Source Systolic (mm Hg) 2021-03-08 16:43:00 Alberto kyle Cooper Diastolic (mm Hg) 2021-03-08 16:43:00 [facility] zain Cooper Heart Rate 2021-03-08 16:43:00 [facility] Respitory Rate 2021-03-08 16:43:00 Anila Valentine Height 2021-03-08 16:43:00 180.34 cm [facility] Weight 2021-03-08 16:43:00 [facility] BMI Calculated 2021-03-08 16:43:00 Anila Valentine Procedures This patient has no known procedures. Encounters Start End Encounter Admission Attending Care Care Encounter Source Date/Time Date/Time Type Type Clinicians Facility Department ID 2021-04-18 2021-04-18 Ambulatory nullFlavo MNA [id number] Memoria 16:30:00 16:30:00 Pre-Reg r Neurology 01 l Charisse Cooper 2021-04-18 2021-04-18 Ambulatory nullFlavo MNA [id number] Memoria 16:30:00 16:30:00 Pre-Reg r Neurology 01 l Charisse Longoriaann 2021-04-18 2021-04-18 Outpatient MHIE MHIE [id number] Memoria 11:30:00 11:30:00 01 brandon Cooper 2021-04-18 2021-04-18 Outpatient GINA Melendez MISCHPADMAJA [id number] 11:30:00 11:30:00 Hugo 01 Obey 2021-03-08 2021-03-09 Outpatient nullFlavo MNA [id number] Memoria 16:15:00 04:59:59 r Neurology 00 l Charisse Longoriaann 2021-03-08 2021-03-09 Outpatient nullFlavo MNA [id number] Memoria 16:15:00 04:59:59 r Neurology 00 l Charisse Kenneth 2021-03-08 2021-03-08 Outpatient GINA Melendez MISCHER [id number] 11:15:00 23:59:59 Hugo 00 Obey 2021-03-08 2021-03-08 Outpatient MHIE MHIE [id number] Memoria 11:15:00 11:15:00 00 brandon Cooper Results This patient has no known results.
[2023-06-22 07:33] LABS: Absolute Lymphocytes (CBC) 3.3 K/uL (0.7-4.9); Hematocrit 41.5 % (39.6-49.0); Lymphocytes % 23.7 % (15.3-44.8); MCV 84.6 fL (80-100); MPV 7.5 fL (7.6-11.3); Platelets 248 thou/uL (152-406); RBC Red Blood Cell Count 4.91 M/uL (4.33-5.43)
--- NOTE | 2023-06-22 07:46 | RAD REPORT ---
EXAM DESCRIPTION: RAD - Chest Single View - 06/22/2023 7:34 am CLINICAL HISTORY: CHEST PAIN COMPARISON: 04/09/2023 FINDINGS: Lines: None. Lungs: No evidence of edema or pneumonia. Pleural: No significant pleural effusions or pneumothorax. Cardiac: The heart size is within normal limits. Mediastinum: Within normal limits. Bones: No acute fractures. Other: None IMPRESSION: No acute cardiopulmonary disease.
[2023-06-22] MEDS ORDERED: KETOROLAC 30 MG/ML INJ ONE (07:49)
[2023-06-22] MEDS ORDERED: LIDOCAINE 4% PATCH ONE (07:49)
[2023-06-22 08:07] LABS: Potassium 4.2 mEq/L (3.5-5.1); Troponin High Sensitivity 10.7 pg/mL (<58.9)
--- NOTE | 2023-06-22 08:15 | ER ---
Nurse's Notes [facility] Name: Evans Espinosa Age: 72 yrs Sex: Male : 1950 Arrival Date: 06/22/2023 Time: 07:10 Bed 2 Private MD: Diagnosis: Mid Back Pain Presentation: 06/22 07:15 Chief complaint: Patient states: "I started having right upper back pain this morning. rs5 The pain was so intense that it woke me from my sleep, the pain is worse when I breath". 07:15 Coronavirus screen: At this time, the client does not indicate any symptoms associated rs5 with coronavirus-19. Ebola Screen: No symptoms or risks identified at this time. Initial Sepsis Screen: Does the patient meet any 2 criteria? No. Patient's initial sepsis screen is negative. Does the patient have a suspected source of infection? No. Patient's initial sepsis screen is negative. Risk Assessment: Do you want to hurt yourself or someone else? Patient reports no desire to harm self or others. Onset of symptoms was June 22, 2023. 07:15 Method Of Arrival: Wheelchair rs5 07:15 Acuity: MEÑO 3 rs5 Historical: - Allergies: 07:15 No Known Allergies; rs5 - PMHx: 07:15 Diabetes - NIDDM; Hypertension; rs5 - PSHx: 07:15 None; rs5 - Immunization history:: Adult Immunizations unknown. - Social history:: Smoking status: Patient denies any tobacco usage or history of. Screenin:16 [facility] ED Fall Risk Assessment (Adult) History of falling in the last 3 months, rs5 including since admission No falls in past 3 months (0 pts) Confusion or Disorientation No (0 pts) Intoxicated or Sedated No (0 pts) Impaired Gait No (0 pts) Mobility Assist Device Used No (0 pt) Altered Elimination No (0 pt) Score/Fall Risk Level 0 - 2 = Low Risk Oriented to surroundings, Maintained a safe environment. Abuse screen: Denies threats or abuse. 07:16 Nutritional screening: No deficits noted. Tuberculosis screening: No symptoms or risk rs5 factors identified. Assessment: 07:17 General: Appears in no apparent distress. uncomfortable, Behavior is calm, cooperative. rs5 07:17 Pain: Complains of pain in right upper back Pain does not radiate. Pain currently is 10 rs5 out of 10 on a pain scale. Quality of pain is described as aching, sharp, Pain began 2 hours ago. Is continuous, Aggravated by breathing. Neuro: Level of Consciousness is awake, alert, obeys commands, Oriented to person, place, time, situation. Cardiovascular: Heart tones S1 S2 present Rhythm is regular. Respiratory: Airway is patent Respiratory effort is even, unlabored, Respiratory pattern is regular, symmetrical. Respiratory: Reports pain with respiration since two hours ago Pain is 10 out of 10 on a pain scale. Denies cough. GI: Abdomen is round non-distended, Bowel sounds present X 4 quads. Abd is soft and non tender X 4 quads. : No signs and/or symptoms were reported regarding the genitourinary system. EENT: No signs and/or symptoms were reported regarding the EENT system. Derm: Skin is intact, Skin is pink, warm \\T\\ dry. Musculoskeletal: Range of motion: intact in all extremities. 08:00 Cardiovascular: Heart tones S1 S2 present Rhythm is regular. rs5 08:00 Pain: Complains of pain in right upper back Pain does not radiate. Pain currently is 3 rs5 out of 10 on a pain scale. Quality of pain is described as aching, Is continuous. Respiratory: Respiratory effort is even, unlabored, Respiratory pattern is regular, symmetrical. Vital Signs: 07:15 BP 140 / 80; Pulse 89; Resp 19; Temp 98(O); Pulse Ox 99% on R/A; rs5 07:30 BP 137 / 82; Pulse 82; Resp 17; Temp 97.9(O); Pulse Ox 99% on R/A; rs5 ED Course: 07:15 Patient arrived in ED. eb 07:16 Patient has correct armband on for positive identification. Bed in low position. Call rs5 light in reach. Side rails up X2. Client placed on continuous cardiac and pulse oximetry monitoring. NIBP monitoring applied. 07:17 Patient maintains SpO2 saturation greater than 95% on room air. rs5 07:18 Jossue Crooks MD is Attending Physician. ec2 07:20 Rodríguez Anguiano, SANDER is Primary Nurse. rs5 07:20 Inserted saline lock: 20 gauge in left antecubital area, using aseptic technique. Blood rs5 collected. 07:36 XRAY Chest (1 view) In Process Unspecified. EDMS 07:49 Triage completed. rs5 08:20 No provider procedures requiring assistance completed. rs5 08:20 IV discontinued, intact, bleeding controlled, No redness/swelling at site. Pressure rs5 dressing applied. Administered Medications: 07:36 Drug: Lidoderm Topical Patch 5 % (700 mg/patch) 1 patches Topical once; leave on for 12 rs5 hours; cover most painful area; may cut into smaller pieces Route: Topical; Site: right upper arm; 08:00 Follow up: Response: No adverse reaction; Pain is decreased rs5 07:36 Drug: Ketorolac IVP 30 mg IVP once Route: IVP; Site: left antecubital; rs5 08:00 Follow up: Response: No adverse reaction; Pain is decreased rs5 Medication: 08:20 VIS not applicable for this client. rs5 Outcome: 08:15 Discharge ordered by . ec2 08:20 Discharged to home ambulatory, with family, rs5 08:20 Condition: stable 08:20 Discharge instructions given to patient, family, Instructed on discharge instructions, follow up and referral plans. Demonstrated understanding of instructions, follow-up care, 08:28 Patient left the ED. rs5 Signatures: Dispatcher [employer] EDLudy Beasley Ricky, RN RN rs5 Jossue Crooks MD MD ec2
--- NOTE | 2023-06-22 08:15 | EDPHYS ---
Physician Documentation [facility] Name: Evans Espinosa Age: 72 yrs Sex: Male : 1950 Arrival Date: 06/22/2023 Time: 07:10 Bed 2 Private MD: ED Physician Jossue Crooks HPI: 06/22 07:30 This 72 yrs old Male presents to ER via Unassigned with complaints of Chest ec2 Pain, Shortness Of Breath. 07:30 Patient arrives today due to concern for right mid back pain. Patient reports that the ec2 pain started last night. States the pain is worse when he takes an occasional breath then, worse when he moves. Patient reports no significant difficulty breathing. Patient reports no cough and cold symptoms. Patient reports no vomiting or diarrhea. Patient denies any chest pain. Patient reports that he was previously diagnosed with asthma, has an inhaler at home however does not feel short of breath and has not used this recently. Patient states he has no back injuries or trauma.. Historical: - Allergies: 07:15 No Known Allergies; rs5 - PMHx: 07:15 Diabetes - NIDDM; Hypertension; rs5 - PSHx: 07:15 None; rs5 - Immunization history:: Adult Immunizations unknown. - Social history:: Smoking status: Patient denies any tobacco usage or history of. ROS: 07:30 Constitutional: as per hpi ec2 Exam: 07:30 Constitutional: GEN: NAD Head: atraumatic Eyes: EOMI Ears: External ears are ec2 normal. CV: regular rate, intact distal pulses LUNGS: no respiratory distress, no wheezes, no rales, no rhonchi ABD: non-distended SKIN: no evidence of rashes MSK: no evidence of trauma, reproducible right lateral mid back tenderness palpation without deformities or crepitus or ecchymosis appreciated. NEURO: moves all extremities equally Vital Signs: 07:15 BP 140 / 80; Pulse 89; Resp 19; Temp 98(O); Pulse Ox 99% on R/A; rs5 07:30 BP 137 / 82; Pulse 82; Resp 17; Temp 97.9(O); Pulse Ox 99% on R/A; rs5 MDM: 07:18 Patient medically screened. ec2 07:18 ED course: EKG independently reviewed and interpreted by me, shows normal sinus rhythm, ec2 rate of 86, no acute segment elevations, intervals are pertinent for first-degree AV block.. 07:30 ED course: Patient arrives today due to concern for right mid back pain. Examination ec2 remarkable for well-appearing nontoxic dividual is otherwise in no acute distress with a reassuring examination with point tenderness palpation without fomites on examination in the right lateral back. Will obtain lab work, EKG already obtained, chest x-ray. We will treat the patient pain with Toradol as well as Lidoderm patch. Currently considering process such as atypical ACS, mid back pain, lower suspicion for PE or dissection. . 08:04 ED course: Chest x-ray independently reviewed and interpreted by me, shows no acute ec2 intrathoracic process.. 08:15 ED course: Patient's lab work is remarkable for CBC with slight leukocytosis, metabolic ec2 profile that shows appropriate electrolytes, hyperglycemia noted, some renal dysfunction with a creatinine 1.53 and GFR 48, troponin is within normal ranges. Ultimately I suspect patient's pain is secondary to muscle skeletal pain given the point reproducibility of this. I have a low clinical exception for atypical ACS and a low clinical suspicion for PE given the patient's history. I will discharge home with return precautions. Return precautions given. . 08:16 Data reviewed: vital signs. ec2 06/22 07:18 Order name: Basic Metabolic Panel; Complete Time: 08:14 ec2 06/22 07:18 Order name: CBC with Diff; Complete Time: 08:04 ec2 06/22 07:18 Order name: Troponin HS; Complete Time: 08:14 ec2 06/22 07:18 Order name: XRAY Chest (1 view); Complete Time: 08:04 ec2 06/22 07:18 Order name: EKG; Complete Time: 07:19 ec2 06/22 07:18 Order name: Cardiac monitoring; Complete Time: 07:20 ec2 06/22 07:18 Order name: EKG - Nurse/Tech; Complete Time: 07:20 ec2 06/22 07:18 Order name: IV Saline Lock; Complete Time: 07:20 ec2 06/22 07:18 Order name: Labs collected and sent; Complete Time: 07:20 ec2 06/22 07:18 Order name: O2 Per Protocol; Complete Time: 07:20 ec2 06/22 07:18 Order name: O2 Sat Monitoring; Complete Time: 07:20 ec2 Administered Medications: 07:36 Drug: Lidoderm Topical Patch 5 % (700 mg/patch) 1 patches Topical once; leave on for 12 rs5 hours; cover most painful area; may cut into smaller pieces Route: Topical; Site: right upper arm; 08:00 Follow up: Response: No adverse reaction; Pain is decreased rs5 07:36 Drug: Ketorolac IVP 30 mg IVP once Route: IVP; Site: left antecubital; rs5 08:00 Follow up: Response: No adverse reaction; Pain is decreased rs5 Disposition Summary: 06/22/23 08:15 Discharge Ordered Notes: Location: Home ec2 Condition: Stable ec2 Diagnosis - Mid Back Pain ec2 Discharge Instructions: - Discharge Summary Sheet ec2 - Acute Back Pain, Adult ec2 Forms: - Medication Reconciliation Form ec2 - Thank You Letter ec2 - Antibiotic Education ec2 - Prescription Opioid Use ec2 - Patient Portal Instructions ec2 - Leadership Thank You Letter ec2 Signatures: Dispatcher [employer] Rodríguez Johnson RN RN rs5 Jossue Croosk MD MD ec2
[2023-06-22 08:46] VITALS: BP 140/80; TEMP 98; O2SAT 99
--- NOTE | 2023-06-25 08:00 | EKG ---
Test Date: 2023-06-22 Test Time: 07:15:07 Wagon Driver Salesperson: MICHELLE MEASUREMENT RESULTS: Intervals: Rate: 86 MS: 236 QRSD: 74 QT: 334 QTc: 399 Brantley: P: 61 MS: 236 QRS: 38 T: 27 INTERPRETIVE STATEMENTS: Sinus rhythm with 1st degree AV block Otherwise normal ECG Compared to ECG 05/04/2021 21:59:54 First degree AV block now present Atrial fibrillation no longer present ST (T wave) deviation no longer present Electronically Signed On 06-25-23 07:53:30 CDT by Herb Serna
== END 2023-06-22 08:28 | disposition home or self-care (01) ==
LOC: ER 07:10
DX: M54.9 Dorsalgia, unspecified (principal); R07.9 Chest pain, unspecified; I10 Essential (primary) hypertension; E11.9 Type 2 diabetes mellitus without complications
CPT/HCPCS: 93005; 85025; 80048; 36415; 84484; 71045; 96374; 99285; J2001

== ENCOUNTER → 2023-11-14 | Emergency (ER) | payer OTHER ==
[~2023-11-14] MED LIST: ASPIRIN 81 MG CHEWABLE TABLET ONE; DIAZEPAM 5 MG TABLET ONE; FENTANYL CITR 100 MCG/2 ML ONE; KETOROLAC 30 MG/ML INJ ONE; NA CHLORIDE 0.9% 500 ML ONE; ONDANSETRON 4 MG/2 ML VIAL ONE; dexAMETHasone 10 MG/ML VIAL ONE
--- NOTE | 2023-11-14 17:54 | RAD REPORT ---
EXAM DESCRIPTION: CT - Head C Spine Mpr Wo Con - 11/14/2023 5:24 pm CLINICAL HISTORY: Headache. Left arm numbness COMPARISON: None. TECHNIQUE: Computed axial tomography of the head and cervical spine was obtained. Sagittal and coronal reconstruction was performed. All CT scans are performed using dose optimization technique as appropriate and may include automated exposure control or mA/KV adjustment according to patient size. FINDINGS: An intracranial bleed is not seen. The ventricles are normal in caliber. Basal ganglia calcifications may be idiopathic No significant hypodensity within the brain. An extra-axial fluid collection is not noted. Fluid within the visualized sinuses and mastoids is not seen A cervical fracture is not visualized. No dislocation is noted. Disc osteophyte complex C5-6 in combination with spondylosis result in moderate narrowing of left nicolas ral foramina and mild to moderate narrowing of the left anterior aspect of thecal sac. 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 Slight anterior subluxation C4 on C5 and C5 on C6 IMPRESSION: No acute intracranial abnormality is seen. A cervical fracture is not visualized. 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 Spondylosis C4-5 and C6-7 results in moderate left foraminal stenosis If the patient continues to have symptoms to suggest intracranial /spinal cord/ spinal and neural for aminal pathology then MRI would be recommended
[2023-11-14 18:02] LABS: Absolute Eosinophils 0.2 K/uL (0-0.5); Absolute Lymphocytes (CBC) 2.6 K/uL (0.7-4.9); Absolute Monocytes 0.4 K/uL (0.1-1.3); Absolute Neutrophil 3.1 K/uL (1.8-8.0); Basophils % 0.6 % (0-1.3); Eosinophils % 3.8 % (0-4.4); Hematocrit 38.3 % (39.6-49.0); Hemoglobin 12.4 g/dL (13.6-17.9); Lymphocytes % 40.4 % (15.3-44.8); MCHC 32.4 g/dL (32.0-36.0); MCV 83.4 fL (80-100); MPV 7.8 fL (7.6-11.3); Monocytes % 6.4 % (3.3-12.3); Neutrophils % 48.8 % (41.7-73.7); Platelets 208 thou/uL (152-406); RBC Red Blood Cell Count 4.59 M/uL (4.33-5.43); Red Cell Distribution Width 14.1 % (12.1-15.2)
[2023-11-14 18:03] LABS: PT Prothrombin Time 10.8 SECONDS (9.5-12.5); Protime INR 0.98
--- NOTE | 2023-11-14 18:19 | RAD REPORT ---
EXAM DESCRIPTION: Domenico Single View11/14/2023 6:01 pm CLINICAL HISTORY: cough COMPARISON: 2022 FINDINGS: Mild prominence of mediastinum represents mediastinal fat. The lungs appear clear of acute infiltrate. The heart is normal size IMPRESSION: No acute abnormalities displayed
[2023-11-14 18:23] LABS: ALT/SGPT 113 U/L (16-61); AST/SGOT 99 U/L (15-37); Albumin 3.5 g/dL (3.4-5.0); Alkaline Phosphatase 90 U/L (45-117); Anion Gap 7.2 mEq/L (5.0-15.0); BUN Blood Urea Nitrogen 18 mg/dL (7-18); Bicarbonate 27 mEq/L (21-32); Bilirubin Total 0.2 mg/dL (0.2-1.0); Globulin 3.5 g/dL (2.3-3.5); Glomerular Filtration Rate 54 ml/min (=/>90); Glucose Level 134 mg/dL (74-106); Magnesium 2.2 mg/dL (1.6-2.4); NT PRO-BNP 198 pg/mL (<125); Potassium 4.2 mEq/L (3.5-5.1); Sodium Level 142 mEq/L (136-145)
[2023-11-14 18:33] LABS: Bilirubin Direct < 0.1 mg/dL (0-0.2); Bilirubin Indirect, Calculated ND mg/dL (0.2-0.8)
--- NOTE | 2023-11-14 18:44 | ER ---
Nurse's Notes [facility] Name: Evans Espinosa Age: 73 yrs Sex: Male : 1950 Arrival Date: 11/14/2023 Time: 15:43 Bed 20 Private MD: Diagnosis: Low back pain;Strain of muscle, fascia and tendon at neck level, initial encounter;Cervical disc disorder with radiculopathy, unspecified cervical region-MRI NEEDED, WITH FOLLOW UP;Spondylolysis, cervical region Presentation: 11/13 16:05 Chief complaint: Patient states: "I woke up 4 days ago with left shoulder pain that mb9 radiates down my spine. My left arm has been numb and tingling when the pain occurs for the past 4 days." Pt denies CP/SOB. Coronavirus screen: Vaccine status: Patient reports being unvaccinated. Ebola Screen: No symptoms or risks identified at this time. Initial Sepsis Screen: Does the patient meet any 2 criteria? No. Patient's initial sepsis screen is negative. Does the patient have a suspected source of infection? No. Patient's initial sepsis screen is negative. Risk Assessment: Do you want to hurt yourself or someone else? Patient reports no desire to harm self or others. Onset of symptoms was November 14, 2023. 16:05 Method Of Arrival: Ambulatory mb9 16:05 Acuity: MEÑO 3 mb9 Triage Assessment: 16:08 General: Appears in no apparent distress. Behavior is calm, cooperative. Pain: mb9 Complains of pain in back Pain does not radiate. Pain currently is 10 out of 10 on a pain scale. Quality of pain is described as throbbing. Cardiovascular: Denies chest pain, shortness of breath. Respiratory: Airway is patent Respiratory effort is even, unlabored, Respiratory pattern is regular, symmetrical. Musculoskeletal: Range of motion: intact in all extremities. Historical: - Allergies: 16:07 No Known Allergies; mb9 - Home Meds: 16:07 Metformin Oral [Active]; lisinopril Oral [Active]; mb9 - PMHx: 16:07 Diabetes - NIDDM; Hypertension; mb9 - PSHx: 16:07 None; mb9 - Immunization history:: Adult Immunizations up to date. - Social history:: Smoking status: Patient denies any tobacco usage or history of. - Family history:: not pertinent. Screenin:00 [facility] ED Fall Risk Assessment (Adult) History of falling in the last 3 months, bp including since admission No falls in past 3 months (0 pts). Abuse screen: Denies threats or abuse. Denies injuries from another. Nutritional screening: No deficits noted. Tuberculosis screening: No symptoms or risk factors identified. Assessment: 16:10 General: Appears in no apparent distress. comfortable, Behavior is appropriate for age. bp Neuro: Level of Consciousness is obeys commands, Oriented to Appropriate for age. 18:00 Reassessment: No changes from previously documented assessment. Patient is alert, bp oriented x 3, equal unlabored respirations, skin warm/dry/pink. 20:20 Reassessment: Patient appears in no apparent distress at this time. Patient is alert, bp oriented x 3, equal unlabored respirations, skin warm/dry/pink. Patient states feeling better. Patient states symptoms have improved. Vital Signs: 16:05 BP 145 / 94; Pulse 75; Resp 18; Temp 97.8; Pulse Ox 100% ; Weight 95.25 kg; Height 5 mb9 ft. 9 in. ; Pain 10/10; 18:00 BP 162 / 90; Pulse 73; Resp 16; Pulse Ox 98% ; bp 20:00 BP 169 / 87; Pulse 77; Resp 18; Temp 98.1(TE); Pulse Ox 100% on R/A; Pain 3/10; nj1 16:05 Body Mass Index 31.01 (95.25 kg, 175.26 cm) mb9 16:05 Pain Scale: Adult mb9 20:00 Pain Scale: Adult nj1 Khadijah Coma Score: 17:36 Eye Response: spontaneous(4). Motor Response: obeys commands(6). Verbal Response: yolande oriented(5). Total: 15. NIH Stroke Scale Scores: 17:36 NIHSS Score: 0 yolande ED Course: 15:50 Patient arrived in ED. mg5 15:58 Chacorta Newton MD is Attending Physician. yolande 16:07 Triage completed. mb9 16:08 Arm band placed on. mb9 16:16 EKG done, by ED staff, reviewed by Chacorta Newton MD. mb9 17:03 Ian Conde, RN is Primary Nurse. bp 17:26 CT Head C Spine In Process Unspecified. EDMS 17:28 XRAY Chest (1 view) Sent. bp 17:50 US Carotid Artery Bilateral Sent. bp 17:51 Troponin HS Sent. bp 17:51 PT-INR Sent. bp 17:51 NT PRO-BNP Sent. bp 17:51 Magnesium Sent. bp 17:51 LFT's Sent. bp 17:51 CBC with Diff Sent. bp 17:51 Basic Metabolic Panel Sent. bp 18:00 Patient has correct armband on for positive identification. bp 18:00 Inserted saline lock: 20 gauge in left antecubital area, using aseptic technique. Blood bp collected. 18:02 XRAY Chest (1 view) In Process Unspecified. EDMS 18:21 Basic Metabolic Panel Sent. bp 18:21 LFT's Sent. bp 18:21 Magnesium Sent. bp 18:21 NT PRO-BNP Sent. bp 18:22 Urinalysis w/ reflexes Sent. bp 18:22 Troponin HS Sent. bp 18:29 US Carotid Artery Bilateral In Process Unspecified. EDMS 18:43 Dieudonne Abernathy MD is Referral Physician. [facility] 20:15 Provided Education on: call light, fall precautions. nj1 20:15 No provider procedures requiring assistance completed. nj1 20:15 IV discontinued, intact, bleeding controlled, Pressure dressing applied. nj1 Administered Medications: 17:45 Drug: NS 0.9% IV 500 ml IV at bolus once Route: IV; Rate: bolus; Site: left antecubital;bp 17:45 Drug: Ketorolac IVP 15 mg IVP once Route: IVP; Site: left antecubital; bp 18:21 Follow up: Response: No adverse reaction bp 17:45 Drug: Decadron - Dexamethasone IVP 10 mg IVP once Route: IVP; Site: left antecubital; bp 18:21 Follow up: Response: No adverse reaction bp 17:45 Drug: Aspirin PO Chewable Tablet 81 mg PO once Route: PO; bp 18:21 Follow up: Response: No adverse reaction bp 18:54 Drug: Ondansetron IVP 4 mg IVP once; over 2 minutes Route: IVP; Site: left antecubital; bp 20:15 Follow up: Response: No adverse reaction nj1 18:55 Drug: Diazepam PO 10 mg PO once Route: PO; bp 20:15 Follow up: Response: No adverse reaction; Marked relief of symptoms nj1 18:55 Drug: fentaNYL (PF) IVP 25 mcg IVP once Route: IVP; Site: left antecubital; bp 20:15 Follow up: Response: No adverse reaction; Pain is decreased nj1 Medication: 20:15 VIS not applicable for this client. nj1 Outcome: 18:43 Discharge ordered by . yolande 20:15 Discharged to home ambulatory, with family, nj1 20:15 Condition: stable 20:15 Discharge instructions given to patient, Instructed on discharge instructions, follow up and referral plans. medication usage, safety practices, Demonstrated understanding of instructions, follow-up care, medications, Prescriptions given X 4, 20:26 Patient left the ED. bp NIH Stroke Scale - NIH Stroke Score Date: 11/14/2023 Time: 17:36 Total Score = 0 10. Dysarthria (speech clarity - read or repeat words) - 0(Normal) 11. Extinction and Inattention (visual/tactile/auditory/spatial/personal) - 0(No abnormality) 1a. Level of Consciousness (LOC) - 0(Alert) 1b. Level of Consciousness (LOC) (Month \\T\\ Age) - 0(Both) 1c. LOC Commands (Open \\T\\ Closes Eyes/Drill Press Operator Numerical Control) - 0(Both) 2. Best Gaze (Lateral Gaze Paresis) - 0(Normal) 3. Visual Field Loss - 0(No visual loss) 4. Facial Palsy - 0(Normal) 5a. Left Arm: Motor (10-second hold) - 0(No drift) 5b. Right Arm: Motor (10-second hold) - 0(No drift) 6a. Left Leg: Motor (5-second hold - always test supine) - 0(No drift) 6b. Right Leg: Motor (5-second hold - always test supine) - 0(No drift) 7. Limb Ataxia (finger/nose \\T\\ heel/graham - test with eyes open) - 0(Absent) 8. Sensory Loss (pinprick arms/legs/face) - 0(Normal) 9. Best Language: Aphasia (description/naming/reading) - 0(No aphasia) Initials: yolande Signatures: Dispatcher [employer] EDChacorta Murguia MD MD cha Peltier, Brian, RN RN Kate Santacruz RN RN mb9 Renita Watson RN RN nj1 Milly Mijares mg5 Corrections: (The following items were deleted from the chart) 16:10 16:05 Chief complaint: Patient states: "I woke up 4 days ago with left shoulder mb9 pain that radiates down my spine." Pt denies CP/SOB mb9 20:33 20:00 BP 169 / 87; Pulse 77bpm; Resp 18bpm; Pulse Ox 100% RA; Temp 98.1F nj1 Temporal; bp
--- NOTE | 2023-11-14 18:44 | EDPHYS ---
Physician Documentation [facility] Name: Evans Espinosa Age: 73 yrs Sex: Male : 1950 Arrival Date: 11/14/2023 Time: 15:43 Bed 20 Private MD: JOSE CRUZ Physician Chacorta Newton HPI: 11/13 17:24 This 73 yrs old Male presents to ER via Ambulatory with complaints of Back yolande Pain. 17:24 The patient presents with pain that is acute, with no known mechanism of injury. The yolande symptoms are located in the left trapezius. Onset: The symptoms/episode began/occurred 5 day(s) ago. The pain radiates to the posterior aspect of left shoulder and left tricep. Associated signs and symptoms: The patient has no apparent associated signs or symptoms. The problem was sustained from unknown cause. Modifying factors: The patient symptoms are alleviated by remaining still, the patient symptoms are aggravated by any movement. Severity of symptoms: At their worst the symptoms were mild. The patient has experienced similar episodes in the past, a few times. Historical: - Allergies: 16:07 No Known Allergies; mb9 - Home Meds: 16:07 Metformin Oral [Active]; lisinopril Oral [Active]; mb9 - PMHx: 16:07 Diabetes - NIDDM; Hypertension; mb9 - PSHx: 16:07 None; mb9 - Immunization history:: Adult Immunizations up to date. - Social history:: Smoking status: Patient denies any tobacco usage or history of. - Family history:: not pertinent. ROS: 17:24 Constitutional: Negative for fever, chills, and weight loss, Eyes: Negative for injury, yolande pain, redness, and discharge, ENT: Negative for injury, pain, and discharge, Neck: Negative for injury, pain, and swelling, Cardiovascular: Negative for chest pain, palpitations, and edema, Respiratory: Negative for shortness of breath, cough, wheezing, and pleuritic chest pain, Abdomen/GI: Negative for abdominal pain, nausea, vomiting, diarrhea, and constipation, : Negative for injury, bleeding, discharge, and swelling, MS/Extremity: Negative for injury and deformity, Skin: Negative for injury, rash, and discoloration, Neuro: Negative for headache, weakness, numbness, tingling, and seizure, Psych: Negative for depression, anxiety, suicide ideation, homicidal ideation, and hallucinations, Allergy/Immunology: Negative for hives, rash, and allergies, Endocrine: Negative for neck swelling, polydipsia, polyuria, polyphagia, and marked weight changes, Hematologic/Lymphatic: Negative for swollen nodes, abnormal bleeding, and unusual bruising, 17:24 Back: Positive for decreased range of motion, pain with movement, of the left trapezius, Exam: 17:24 Constitutional: This is a well developed, well nourished patient who is awake, alert, yolande and in no acute distress. Head/Face: Normocephalic, atraumatic. Eyes: Pupils equal round and reactive to light, extra-ocular motions intact. Lids and lashes normal. Conjunctiva and sclera are non-icteric and not injected. Cornea within normal limits. Periorbital areas with no swelling, redness, or edema. ENT: Nares patent. No nasal discharge, no septal abnormalities noted. Tympanic membranes are normal and external auditory canals are clear. Oropharynx with no redness, swelling, or masses, exudates, or evidence of obstruction, uvula midline. Mucous membranes moist. Chest/axilla: Normal chest wall appearance and motion. Nontender with no deformity. No lesions are appreciated. Cardiovascular: Regular rate and rhythm with a normal S1 and S2. No gallops, murmurs, or rubs. Normal PMI, no JVD. No pulse deficits. Respiratory: Lungs have equal breath sounds bilaterally, clear to auscultation and percussion. No rales, rhonchi or wheezes noted. No increased work of breathing, no retractions or nasal flaring. Abdomen/GI: Soft, non-tender, with normal bowel sounds. No distension or tympany. No guarding or rebound. No evidence of tenderness throughout. Back: No spinal tenderness. No costovertebral tenderness. Full range of motion. Male : Normal genitalia with no discharge or lesions. Skin: Warm, dry with normal turgor. Normal color with no rashes, no lesions, and no evidence of cellulitis. MS/ Extremity: Pulses equal, no cyanosis. Neurovascular intact. Full, normal range of motion. Neuro: Awake and alert, GCS 15, oriented to person, place, time, and situation. Cranial nerves II-XII grossly intact. Motor strength 5/5 in all extremities. Sensory grossly intact. Cerebellar exam normal. Normal gait. Psych: Awake, alert, with orientation to person, place and time. Behavior, mood, and affect are within normal limits. 17:24 Neck: External neck: is normal, no acute changes, ROM/movement: pain, that is mild, with rotation to the left, with flexion, limited range of motion, is not appreciated, Meningeal signs: are not present, Kernig's sign is negative, Brudzinski's sign is negative, nuchal rigidity, is not appreciated, 17:36 ECG was reviewed by the Attending Physician. [facility] 17:36 ECG was reviewed by the Attending Physician. [facility] Vital Signs: 16:05 BP 145 / 94; Pulse 75; Resp 18; Temp 97.8; Pulse Ox 100% ; Weight 95.25 kg; Height 5 mb9 ft. 9 in. ; Pain 10/10; 18:00 BP 162 / 90; Pulse 73; Resp 16; Pulse Ox 98% ; bp 20:00 BP 169 / 87; Pulse 77; Resp 18; Temp 98.1(TE); Pulse Ox 100% on R/A; Pain 3/10; nj1 16:05 Body Mass Index 31.01 (95.25 kg, 175.26 cm) mb9 16:05 Pain Scale: Adult mb9 20:00 Pain Scale: Adult nj1 NIH Stroke Scale Scores: 17:36 NIHSS Score: 0 yolande Khadijah Coma Score: 17:36 Eye Response: spontaneous(4). Motor Response: obeys commands(6). Verbal Response: yolande oriented(5). Total: 15. MDM: 15:58 Patient medically screened. yolande 17:28 Differential diagnosis: Fatigue Fracture Joint Injury Obesity ruptured disc, Scoliosis yolande spinal injury, sprain, vertebral fracture. Data reviewed: vital signs, nurses notes, lab test result(s), EKG, radiologic studies, CT scan, doppler. Consideration of Admission/Observation Escalation of care including admission/observation considered. I considered the following discharge prescriptions or medication management in the emergency department Medications were administered in the Emergency Department. See MAR. Independent interpretation of the following test(s) in the Emergency Department EKG: See my EKG interpretation above. Test considered but Not performed: MRI: no mri c spine. Historians other than the Patient: Family Member: and daughter. Care significantly affected by the following chronic conditions: Diabetes, Hypertension. Counseling: I had a detailed discussion with the patient and/or guardian regarding the historical points, exam findings, and any diagnostic results supporting the discharge/admit diagnosis, the presence of at least one elevated blood pressure reading (>120/80) during this emergency department visit, lab results, radiology results, the need for outpatient follow up, for definitive care, a family practitioner, a neurologist. 11/13 17:04 Order name: Basic Metabolic Panel; Complete Time: 18:41 [facility] 11/13 17:04 Order name: CBC with Diff; Complete Time: 18:41 [facility] 11/13 17:04 Order name: LFT's; Complete Time: 18:41 [facility] 11/13 17:04 Order name: Magnesium; Complete Time: 18:41 [facility] 11/13 17:04 Order name: NT PRO-BNP; Complete Time: 18:41 [facility] 11/13 17:04 Order name: PT-INR; Complete Time: 18:41 [facility] 11/13 17:04 Order name: Troponin HS; Complete Time: 18:41 [facility] 11/13 17:04 Order name: Urinalysis w/ reflexes [facility] 11/13 19:00 Order name: Urine Culture EDMS 11/13 17:04 Order name: XRAY Chest (1 view); Complete Time: 18:41 [facility] 11/13 17:04 Order name: CT Head C Spine; Complete Time: 18:00 [facility] 11/13 17:04 Order name: US Carotid Artery Bilateral [facility] 11/13 17:04 Order name: EKG; Complete Time: 17:05 [facility] 11/13 16:16 Order name: EKG - Nurse/Tech; Complete Time: 16:16 mb9 11/13 17:04 Order name: Cardiac monitoring; Complete Time: 17:28 [facility] 11/13 17:04 Order name: IV Saline Lock; Complete Time: 17:51 [facility] 11/13 17:04 Order name: Labs collected and sent; Complete Time: 17:51 [facility] 11/13 17:04 Order name: O2 Per Protocol; Complete Time: 17:27 [facility] 11/13 17:04 Order name: O2 Sat Monitoring; Complete Time: 17:27 [facility] EC:36 Rate is 76 beats/min. Rhythm is regular. QRS Rudyard is Normal. WV interval is normal. QRS yolande interval is normal. QT interval is normal. No Q waves. T waves are Normal. No ST changes noted. Clinical impression: NSR w/ Non-specific ST/T Changes, 1st degree heart block, and No evidence of ischemia. Interpreted by me. Reviewed by me. Administered Medications: 17:45 Drug: NS 0.9% IV 500 ml IV at bolus once Route: IV; Rate: bolus; Site: left antecubital;bp 17:45 Drug: Ketorolac IVP 15 mg IVP once Route: IVP; Site: left antecubital; bp 18:21 Follow up: Response: No adverse reaction bp 17:45 Drug: Decadron - Dexamethasone IVP 10 mg IVP once Route: IVP; Site: left antecubital; bp 18:21 Follow up: Response: No adverse reaction bp 17:45 Drug: Aspirin PO Chewable Tablet 81 mg PO once Route: PO; bp 18:21 Follow up: Response: No adverse reaction bp 18:54 Drug: Ondansetron IVP 4 mg IVP once; over 2 minutes Route: IVP; Site: left antecubital; bp 20:15 Follow up: Response: No adverse reaction nj1 18:55 Drug: Diazepam PO 10 mg PO once Route: PO; bp 20:15 Follow up: Response: No adverse reaction; Marked relief of symptoms nj1 18:55 Drug: fentaNYL (PF) IVP 25 mcg IVP once Route: IVP; Site: left antecubital; bp 20:15 Follow up: Response: No adverse reaction; Pain is decreased nj1 Disposition Summary: 11/14/23 18:43 Discharge Ordered Notes: Location: Home yolande Problem: new yolande Symptoms: have improved yolande Condition: Stable yolande Diagnosis - Low back pain yolande - Strain of muscle, fascia and tendon at neck level, initial encounter yolande - Cervical disc disorder with radiculopathy, unspecified cervical region - MRI yolande NEEDED, WITH FOLLOW UP - Spondylolysis, cervical region yolande Followup: yolande - With: Private Physician - When: 2 - 3 days - Reason: Recheck today's complaints, Continuance of care, Re-evaluation by your physician Followup: yolande - With: Dieudonne Abernathy MD - When: 2 - 3 days - Reason: Recheck today's complaints, Re-evaluation by your physician Discharge Instructions: - Discharge Summary Sheet yolande - Cervical Radiculopathy yolande - Herniated Disk yolande - Muscle Strain yolande - Musculoskeletal Pain yolande - Muscle Strain, [id number] yolande - Aspirin and Your Heart yolande - Herniated Disk, [id number] yolande - Cervical Radiculopathy, [id number] [facility] Forms: - Medication Reconciliation Form [facility] - Thank You Letter yolande - Antibiotic Education yolande - Prescription Opioid Use yolande - Patient Portal Instructions [facility] - Leadership Thank You Letter [facility] Prescriptions: - acetaminophen-codeine 300-30 mg Oral tablet - take 1 tablet ORAL route every 4-6 hours as needed for pain; 20 tablet; yolande Refills: 0, Product Selection Permitted - dexamethasone 4 mg Oral tablet - take 1 tablet ORAL route daily; 4 tablet; Refills: 0, Product Selection yolande Permitted - diclofenac sodium 50 mg Oral tablet, delayed release (enteric coated) - take 1 tablet ORAL route 3 times per day; 30 tablet; Refills: 0, Product yolande Selection Permitted - Cyclobenzaprine 5 mg Oral Tablet - take 1 tablet ORAL route 3 times per day As needed; 15 tablet; Refills: 0, yolande Product Selection Permitted NIH Stroke Scale - NIH Stroke Score Date: 11/14/2023 Time: 17:36 Total Score = 0 10. Dysarthria (speech clarity - read or repeat words) - 0(Normal) 11. Extinction and Inattention (visual/tactile/auditory/spatial/personal) - 0(No abnormality) 1a. Level of Consciousness (LOC) - 0(Alert) 1b. Level of Consciousness (LOC) (Month \T\ Age) - 0(Both) 1c. LOC Commands (Open \T\ Closes Eyes/Network Engineer) - 0(Both) 2. Best Gaze (Lateral Gaze Paresis) - 0(Normal) 3. Visual Field Loss - 0(No visual loss) 4. Facial Palsy - 0(Normal) 5a. Left Arm: Motor (10-second hold) - 0(No drift) 5b. Right Arm: Motor (10-second hold) - 0(No drift) 6a. Left Leg: Motor (5-second hold - always test supine) - 0(No drift) 6b. Right Leg: Motor (5-second hold - always test supine) - 0(No drift) 7. Limb Ataxia (finger/nose \T\ heel/graham - test with eyes open) - 0(Absent) 8. Sensory Loss (pinprick arms/legs/face) - 0(Normal) 9. Best Language: Aphasia (description/naming/reading) - 0(No aphasia) Initials: yolande Signatures: Dispatcher [employer] EDChacorta Murguia MD MD cha Peltier, Brian RN RN Kate Santacruz RN RN mb9 Renita Watson RN nj1 Corrections: (The following items were deleted from the chart) 17:37 17:36 Rate is 76 beats/min. Rhythm is regular. QRS Rudyard is Normal. WV interval yolande is normal. QRS interval is normal. QT interval is normal. No Q waves. T waves are Normal. No ST changes noted. Clinical impression: Normal ECG and No evidence of ischemia. Interpreted by me. Reviewed by me. yolande
[2023-11-14 18:53] LABS: Specific Gravity 1.008 (1.005-1.030); Urine Bilirubin NEGATIVE (Negative); Urine Blood Negative (Negative); Urine Clarity Clear (Clear); Urine Color Colorless (Yellow); Urine Glucose 4+ (Over) (Negative); Urine Ketones NEGATIVE (Negative); Urine Microscopic Reflex YN ORDER UMIC; Urine Nitrite NEGATIVE (Negative); Urine Protein NEGATIVE (Negative); Urine Urobilinogen Normal (Normal)
[2023-11-14 18:54] LABS: Urine Yeast (Budding) Trace /HPF (None Seen)
[2023-11-14 18:55] LABS: Sqamous Epithelial <5 /HPF (None Seen); Urine Bacteria <20 /HPF (<20); Urine Culture Reflex Order REFLEXED; Urine RBC <5 /HPF (None Seen)
--- NOTE | 2023-11-14 18:55 | RAD REPORT ---
EXAM DESCRIPTION: USCarotid Artery Bilateral11/14/2023 6:27 pm CLINICAL HISTORY: Left arm numbness/dizziness COMPARISON: None FINDINGS: The velocity of the right internal carotid artery equals 85 cm/sec. The right ICA/CCA rati o normal The velocity of the left internal carotid artery equals 73 cm/sec. The left ICA/CCA ratio normal Mild plaque is present within the carotid arteries. The vertebral arteries demonstrate antegrade flow IMPRESSION: No significant abnormality displayed NASCET criteria used. Mild 0-49% stenosis Moderate 50-69% stenosis Severe 70-99% stenosis
[2023-11-14 21:03] VITALS: BP 162/90; TEMP 97.8; O2SAT 98
--- NOTE | 2023-11-18 14:29 | EKG ---
Test Date: 2023-11-14 Test Time: 17:54:04 Zipper Lining Folder: MB MEASUREMENT RESULTS: Intervals: Rate: 69 WY: 124 QRSD: 76 QT: 372 QTc: 398 Wagner: P: 79 WY: 124 QRS: 95 T: 118 INTERPRETIVE STATEMENTS: Normal sinus rhythm Rightward axis Nonspecific T wave abnormality Abnormal ECG Compared to ECG 11/14/2023 16:04:01 Right-axis deviation now present T-wave abnormality now present First degree AV block no longer present Electronically Signed On 11-18-23 14:17:32 CDT by Herb Serna
--- NOTE | 2023-11-18 14:29 | EKG ---
Test Date: 2023-11-14 Test Time: 16:04:01 Nylon Operator: MB MEASUREMENT RESULTS: Intervals: Rate: 76 NJ: 258 QRSD: 78 QT: 352 QTc: 396 Mandan: P: 55 NJ: 258 QRS: 20 T: 18 INTERPRETIVE STATEMENTS: Sinus rhythm with 1st degree AV block Otherwise normal ECG Compared to ECG 06/22/2023 07:15:07 No significant changes Electronically Signed On 11-18-23 14:17:37 CDT by Herb Serna
== END ==
LOC: ER 15:43
DX: M54.50 Low back pain, unspecified (principal); S16.1XXA Strain of muscle, fascia and tendon at neck level, initial encounter; M50.10 Cervical disc disorder with radiculopathy, unspecified cervical region; M43.02 Spondylolysis, cervical region; E11.9 Type 2 diabetes mellitus without complications; I10 Essential (primary) hypertension
CPT/HCPCS: 93005 ×2; 87088; 85025; 81001; 87086; 80048; 36415; 83735; 85610; 80076; 84484; 83880; 70450; 72125; 71045; 93880; 96375; 96374; 99284; J3010; J1100; J2405; J7040

== ENCOUNTER 2023-11-25 17:00 | Emergency (ER) | payer OTHER ==
[2023-11-25] MEDS ORDERED: HYDROCODONE/APAP 7.5/325 MG TAB ONE (17:23)
--- NOTE | 2023-11-25 17:56 | ER ---
Nurse's Notes [facility] Name: Evans Espinosa Age: 73 yrs Sex: Male : 1950 Arrival Date: 11/25/2023 Time: 17:00 Bed IW2 Private MD: Faviola Hoffmann Diagnosis: Radiculopathy, cervical region Presentation: 11/24 17:18 Chief complaint: Patient states: Pain in L upper back/neck area that radiates to L ph shoulder and down L arm, seen in ED approx [address] Newton, prescribed Tylenol #3, cyclobenzaprine, and diclofenac but they are not helping. Coronavirus screen: Vaccine status: Patient reports receiving the 2nd dose of the covid vaccine. Ebola Screen: No symptoms or risks identified at this time. Initial Sepsis Screen: Does the patient meet any 2 criteria? No. Patient's initial sepsis screen is negative. Does the patient have a suspected source of infection? No. Patient's initial sepsis screen is negative. Risk Assessment: Do you want to hurt yourself or someone else? Patient reports no desire to harm self or others. Onset of symptoms was November 25, 2023. 17:18 Method Of Arrival: Ambulatory ph 17:18 Acuity: MEÑO 4 ph Historical: - Allergies: 17:20 No Known Allergies; ph - PMHx: 17:20 Diabetes - NIDDM; Hypertension; ph - Immunization history:: Adult Immunizations unknown. - Infectious Disease History:: Denies. - Social history:: Smoking status: Patient denies any tobacco usage or history of. Screenin:03 [facility] ED Fall Risk Assessment (Adult) History of falling in the last 3 months, ll1 including since admission No falls in past 3 months (0 pts) Confusion or Disorientation No (0 pts) Intoxicated or Sedated No (0 pts) Impaired Gait No (0 pts) Mobility Assist Device Used No (0 pt) Altered Elimination No (0 pt) Score/Fall Risk Level 0 - 2 = Low Risk Oriented to surroundings, Hourly rounding (assess needs \T\ fall precautionary measures) done. Abuse screen: Denies threats or abuse. Nutritional screening: No deficits noted. Tuberculosis screening: No symptoms or risk factors identified. Assessment: 18:02 General: Appears in no apparent distress. Behavior is calm, cooperative, appropriate ll1 for age. Pain: Complains of pain in left scapular area Pain radiates to left arm Quality of pain is described as aching, gnawing. Neuro: Level of Consciousness is awake, alert, obeys commands, Gait is steady, Speech is normal. Musculoskeletal: Circulation, motion, and sensation intact. Capillary refill < 3 seconds, Reports pain in left arm and left scapular area. Vital Signs: 17:18 BP 173 / 91; Pulse 80; Resp 18; Temp 97.3; Pulse Ox 100% on R/A; Weight 95.25 kg; ph Height 5 ft. 9 in. ; 17:18 Body Mass Index 31.01 (95.25 kg, 175.26 cm) ph ED Course: 17:03 Patient arrived in ED. mr 17:03 Faviola Hoffmann is Private Physician. mr 17:03 Sara Allen FNP-C is [facility]. kb 17:03 Corby Bernal DO is Attending Physician. kb 17:20 Triage completed. ph 17:21 Arm band placed on Patient placed in waiting room, Patient notified of wait time. ph 18:03 No provider procedures requiring assistance completed. Patient did not have IV access ll1 during this emergency room visit. 18:04 Patient has correct armband on for positive identification. Provided Education on: ll1 follow-up with PCP for possible outpatient MRI. Administered Medications: 17:26 Drug: Hydrocodone-Acetaminophen PO (7.5 mg-325 mg) 1 tabs PO once Route: PO; ph 18:03 Follow up: Response: No adverse reaction; Pain is unchanged, physician notified; RASS: ll1 Alert and Calm (0) Medication: 18:05 VIS not applicable for this client. ll1 Outcome: 17:55 Discharge ordered by . kb 18:03 Discharged to home ll1 18:03 Condition: stable 18:03 Discharge instructions given to patient, Instructed on discharge instructions, follow up and referral plans. Demonstrated understanding of instructions, follow-up care, 18:05 Patient left the ED. ll1 Signatures: Sara Allen FNP-C FNP-Kate Petty, Reg Reg mr Jennifer Sylvester RN RN ph Anton Luu RN RN ll1
--- NOTE | 2023-11-25 17:56 | EDPHYS ---
Physician Documentation [facility] Name: Evans Espinosa Age: 73 yrs Sex: Male : 1950 Arrival Date: 11/25/2023 Time: 17:00 Bed IW2 Private MD: Faviola Hoffmann ED Physician Corby Bernal HPI: 11/24 17:23 This 73 yrs old Male presents to ER via Ambulatory with complaints of Arm kb Pain, Shoulder Pain, Back Pain. 17:23 Pt is a 73 year old male who presents for pain to posterior left shoulder that radiates kb down left arm that began one week ago. States he was seen here and given prescriptions for diclofenac, tylenol #3, and a muscle relaxer but the pain has persisted and he hasn't been able to get into his dr. states he can see her tomorrow, but is out of the tylenol #3 so he came in for something for pain. Denies chest pain, shortness of breath. . Historical: - Allergies: 17:20 No Known Allergies; ph - PMHx: 17:20 Diabetes - NIDDM; Hypertension; ph - Immunization history:: Adult Immunizations unknown. - Infectious Disease History:: Denies. - Social history:: Smoking status: Patient denies any tobacco usage or history of. ROS: 17:24 Constitutional: As per HPI kb Exam: 17:24 Constitutional: This is a well developed, well nourished patient who is awake, alert, kb and in no acute distress. Head/Face: Normocephalic, atraumatic. ENT: Moist Mucous membranes Cardiovascular: Regular rate Respiratory: Respirations even and unlabored. No increased work of breathing. Talking in full sentences Abdomen/GI: Soft, non-tender. No distention Skin: Warm, dry with normal turgor. Normal color. MS/ Extremity: Pulses equal, no cyanosis. Neurovascular intact. Full, normal range of motion. Neuro: Awake and alert, GCS 15, oriented to person, place, time, and situation. Moves all extremities. Normal gait. 17:24 Back: pain, that is moderate, of the left scapular area, radiates down left arm, Vital Signs: 17:18 BP 173 / 91; Pulse 80; Resp 18; Temp 97.3; Pulse Ox 100% on R/A; Weight 95.25 kg; ph Height 5 ft. 9 in. ; 17:18 Body Mass Index 31.01 (95.25 kg, 175.26 cm) ph MDM: 17:03 Patient medically screened. kb 17:22 Data reviewed: vital signs, nurses notes. External Records Reviewed: reviewed kb diagnostics from previous visit (last week) for same complaint. Labs, CT, x-ray and US completed . 17:25 Differential diagnosis: tendonitis, radiculopathy. Test considered but Not performed: kb X-ray: x-ray considered, but the pain is unchanged from previous visit and x-rays/CT/US/labs were completed at that time. . Counseling: I had a detailed discussion with the patient and/or guardian regarding the historical points, exam findings, and any diagnostic results supporting the discharge/admit diagnosis, the need for outpatient follow up, a family practitioner, to return to the emergency department if symptoms worsen or persist or if there are any questions or concerns that arise at home. Administered Medications: 17:26 Drug: Hydrocodone-Acetaminophen PO (7.5 mg-325 mg) 1 tabs PO once Route: PO; ph 18:03 Follow up: Response: No adverse reaction; Pain is unchanged, physician notified; RASS: ll1 Alert and Calm (0) Disposition: 20:16 I was immediately available on-site in the Emergency Department for consultation in the ms3 care of the patient. Disposition Summary: 11/25/23 17:55 Discharge Ordered Notes: Location: Home kb Condition: Stable kb Diagnosis - Radiculopathy, cervical region kb Followup: kb - With: Private Physician - When: 1 - 2 days - Reason: Recheck today's complaints, Continuance of care, Re-evaluation by your physician Followup: kb - With: Emergency Department - When: As needed - Reason: Worsening of condition Discharge Instructions: - Discharge Summary Sheet kb - Cervical Radiculopathy kb - Neuropathic Pain kb - Pinched Nerve kb Forms: - Medication Reconciliation Form kb - Thank You Letter kb - Antibiotic Education kb - Prescription Opioid Use kb - Patient Portal Instructions kb - Leadership Thank You Letter kb Signatures: Sara Allen, DESIREE MCCALL-Jennifer Hernandez RN RN ph Corby Bernal, DO ms3 Jus, Lynsay RN ll1
[2023-11-26 00:25] VITALS: BP 173/91; TEMP 97.3; O2SAT 100
== END 2023-11-25 18:05 | disposition home or self-care (01) ==
LOC: ER 17:00
DX: M54.12 Radiculopathy, cervical region (principal)
CPT/HCPCS: 99283

== ENCOUNTER 2024-08-20 18:22 | Emergency (ER) | payer OTHER ==
--- NOTE | 2024-08-20 19:13 | RAD REPORT ---
EXAMINATION: ONE VIEW CHEST XR CLINICAL INDICATION: SOB TECHNIQUE: Frontal chest projection is submitted. Examination is limited by patient positioning and t echnique. COMPARISON: 07/11/2024 FINDINGS: The lungs are diffusely emphysematous but grossly clear. The heart is normal in size. No displaced fr actures identified. IMPRESSION: COPD without an acute process suspected.
[2024-08-20] MEDS ORDERED: IPRATROPIUM BROM 0.5MG/2.5ML ONE ×2 (19:31→19:41)
[2024-08-20] MEDS ORDERED: METHYLPREDNISOLONE 125 MG INJ ONE (19:31)
[2024-08-20] MEDS ORDERED: ALBUTEROL 2.5 MG/3 ML NEB SOL ONE ×2 (19:31→19:41)
[2024-08-20 19:35] LABS: Absolute Eosinophils 0.1 K/uL (0-0.5); Absolute Lymphocytes (CBC) 2.3 K/uL (0.7-4.9); Absolute Monocytes 0.5 K/uL (0.1-1.3); Absolute Neutrophil 5.5 K/uL (1.8-8.0); Basophils % 0.6 % (0-1.3); Eosinophils % 1.4 % (0-4.4); Hematocrit 42.5 % (39.6-49.0); Hemoglobin 13.8 g/dL (13.6-17.9); Lymphocytes % 27.2 % (15.3-44.8); MCH 27.8 pg (27.0-35.0); MCHC 32.4 g/dL (32.0-36.0); MCV 85.7 fL (80-100); MPV 7.9 fL (7.6-11.3); Monocytes % 5.6 % (3.3-12.3); Neutrophils % 65.2 % (41.7-73.7); Platelets 224 thou/uL (152-406); RBC Red Blood Cell Count 4.96 M/uL (4.33-5.43); Red Cell Distribution Width 13.3 % (12.1-15.2)
[2024-08-20 19:52] LABS: Anion Gap 6.3 mEq/L (5.0-15.0); Magnesium 2.2 mg/dL (1.6-2.4); Potassium 4.3 mEq/L (3.5-5.1); Troponin High Sensitivity 12.1 pg/mL (<58.9)
--- NOTE | 2024-08-20 21:28 | ER ---
Nurse's Notes [facility] Name: Evans Espinosa Age: 74 yrs Sex: Male : 1950 Arrival Date: 08/20/2024 Time: 18:22 Bed 18 Private MD: Diagnosis: Shortness of breath Presentation: 08/20 18:41 Chief complaint: Patient states: Shortness of breath that has been an ongoing issue for ss the last few months. pt states that she has seen her PCP and was given inhalers. pt states that he was told he could only use his inhaler 3 times per week. Coronavirus screen: Client denies travel out of the [place] in the last 14 days. Ebola Screen: Patient denies travel to an Ebola-affected area in the 21 days before illness onset. No symptoms or risks identified at this time. Initial Sepsis Screen: Does the patient meet any 2 criteria? No. Patient's initial sepsis screen is negative. Does the patient have a suspected source of infection? No. Patient's initial sepsis screen is negative. Risk Assessment: Do you want to hurt yourself or someone else? Patient reports no desire to harm self or others. Onset of symptoms is unknown. 18:41 Method Of Arrival: Ambulatory ss 18:41 Acuity: MEÑO 3 ss Triage Assessment: 18:43 General: Appears in no apparent distress. comfortable, Behavior is calm, cooperative. ss Neuro: No deficits noted. Level of Consciousness is awake, alert, obeys commands, Oriented to person, place, time, situation, Appropriate for age. Respiratory: No deficits noted. Reports shortness of breath Airway is patent Respiratory effort is even, unlabored, Respiratory pattern is regular, symmetrical. Historical: - Allergies: 18:43 No Known Allergies; ss - PMHx: 18:43 Diabetes - NIDDM; Hypertension; Hypercholesterolemia; ss - Immunization history:: Adult Immunizations up to date. - Infectious Disease History:: Denies. - Social history:: Smoking status: unknown. Screenin:00 [facility] ED Fall Risk Assessment (Adult) History of falling in the last 3 months, me1 including since admission No falls in past 3 months (0 pts) Confusion or Disorientation No (0 pts) Intoxicated or Sedated No (0 pts) Impaired Gait No (0 pts) Mobility Assist Device Used No (0 pt) Altered Elimination No (0 pt) Score/Fall Risk Level 0 - 2 = Low Risk Maintained a safe environment, Hourly rounding (assess needs \T\ fall precautionary measures) done, Used ambulatory aids as needed (educated on \T\ assisted with). Abuse screen: Denies threats or abuse. Nutritional screening: No deficits noted. Tuberculosis screening: No symptoms or risk factors identified. Assessment: 19:00 General: Appears in no apparent distress. well groomed, well developed, well nourished, me1 Behavior is calm, cooperative, appropriate for age, Reports Shortness of breath that has been an ongoing issue for the last few months. pt states that she has seen her PCP and was given inhalers. pt states that he was told he could only use his inhaler 3 times per week. Pain: Denies pain. Neuro: Level of Consciousness is awake, alert, obeys commands, Oriented to person, place, time, situation, Appropriate for age. Cardiovascular: Patient's skin is warm and dry. Rhythm is regular. Respiratory: Airway is patent Respiratory effort is even, unlabored, Respiratory pattern is regular, symmetrical, Breath sounds are clear bilaterally. Onset: The symptoms/episode began/occurred since having covid 4 years ago, the patient has mild shortness of breath. GI: No signs and/or symptoms were reported involving the gastrointestinal system. : No signs and/or symptoms were reported regarding the genitourinary system. EENT: No signs and/or symptoms were reported regarding the EENT system. EENT: No signs and/or symptoms were reported regarding the EENT system. Derm: Skin is intact, is healthy with good turgor, Skin is pink, warm \T\ dry. Musculoskeletal: No signs and/or symptoms reported regarding the musculoskeletal system. Vital Signs: 18:41 BP 142 / 87; Pulse 86; Resp 15; Temp 98.1(O); Pulse Ox 98% on R/A; Weight 96.16 kg; ss Height 5 ft. 9 in. ; Pain 0/10; 19:00 BP 128 / 68; Pulse 87; Resp 16; Pulse Ox 97% ; me1 20:00 BP 124 / 68; Pulse 84; Resp 16; Pulse Ox 96% on R/A; me1 21:00 BP 142 / 75; Pulse 100; Resp 18; Temp 98.2; Pulse Ox 98% ; me1 21:30 BP 148 / 79; Pulse 96; Resp 17; Temp 98.4; Pulse Ox 98% ; me1 18:41 Body Mass Index 31.31 (96.16 kg, 175.26 cm) ss 18:41 Pain Scale: Adult ss ED Course: 18:25 Patient arrived in ED. ra3 18:43 Triage completed. ss 18:43 Arm band placed on right wrist. Patient placed in an exam room, on a stretcher, on ss pulse oximetry. 18:44 Chacorta Duff PA is PHCP. cp 18:44 Faviola Hammond MD is Attending Physician. cp 19:00 Patient has correct armband on for positive identification. Bed in low position. Call me1 light in reach. Side rails up X2. Provided Education on: POC. Verbalized understanding.. Client placed on continuous cardiac and pulse oximetry monitoring. NIBP monitoring applied. quality assurance monitor on. Pulse ox on. NIBP on. 19:00 No provider procedures requiring assistance completed. me1 19:09 Delicia Valverde, SANDER is Primary Nurse. me1 19:11 XRAY Chest (1 view) In Process Unspecified. EDMS 19:28 Initial lab(s) drawn, by me, sent to lab. Inserted saline lock: 22 gauge in right me1 antecubital area, using aseptic technique. 19:28 Basic Metabolic Panel Sent. me1 19:28 CBC with Diff Sent. me1 19:28 Magnesium Sent. me1 19:28 NT PRO-BNP Sent. me1 19:28 Troponin HS Sent. me1 20:36 EKG done, by ED staff, reviewed by Chacorta LUCAS. me1 21:27 Juan Carlos Reddy MD is Referral Physician. cp 21:34 IV discontinued, intact, bleeding controlled, No redness/swelling at site. Pressure me1 dressing applied. Administered Medications: 19:43 Drug: Albuterol Inhalation 2.5 mg Inhalation once Route: Inhalation; me1 20:35 Follow up: Response: No adverse reaction; Wheezing diminished me1 19:43 Drug: Ipratropium Inhalation Aerosol 0.5 mg Inhalation once Route: Inhalation; me1 20:35 Follow up: Response: No adverse reaction; Wheezing diminished me1 19:43 Drug: MethylPrednisoLONE IVP 125 mg IVP once Route: IVP; Site: right antecubital; me1 20:35 Follow up: Response: No adverse reaction me1 Medication: 19:00 VIS not applicable for this client. me1 Outcome: 21:27 Discharge ordered by . cp 21:39 Discharged to home ambulatory, with significant other, me1 21:39 Condition: stable 21:39 Discharge instructions given to patient, significant other, Instructed on discharge instructions, follow up and referral plans. medication usage, Demonstrated understanding of instructions, follow-up care, medications, Prescriptions given X 3, 21:39 Patient left the ED. me1 Signatures: Dispatcher [employer] EDMS Argenis Conn RN RN ss Chacorta Duff PA PA Delicia Young RN RN me1 Rocío Dunn ra3 Corrections: (The following items were deleted from the chart) 20:39 18:41 Chief complaint: Patient states: Shortness of breath that has been an ongoing me1 issue for the last few months. pt states that she has seen her PCP and was given inhalers. pt states that he was told he could only use his inhaler 3 times per week. ss
--- NOTE | 2024-08-20 21:28 | EDPHYS ---
Physician Documentation [facility] Name: Evans Espinosa Age: 74 yrs Sex: Male : 1950 Arrival Date: 08/20/2024 Time: 18:22 Bed 18 Private MD: ED Physician Faviola Hammond HPI: 08/20 18:55 This 74 yrs old Male presents to ER via Ambulatory with complaints of cp Breathing Difficulty. 18:55 The patient has shortness of breath at rest. Onset: The symptoms/episode began/occurred cp for years, worse over past several months. 18:55 Associated signs and symptoms: Pertinent negatives: chest pain, productive cough, cp diaphoresis, fever, vomiting. Severity of symptoms: in the emergency department the symptoms are unchanged despite home interventions. Patient reports symptoms started after having COVID infection in 2018 and has continued. PCP has prescribed inhalers. Denies chest pain, denies fever, denies night sweats, denies weight loss. Historical: - Allergies: 18:43 No Known Allergies; ss - PMHx: 18:43 Diabetes - NIDDM; Hypertension; Hypercholesterolemia; ss - Immunization history:: Adult Immunizations up to date. - Infectious Disease History:: Denies. - Social history:: Smoking status: unknown. ROS: 19:00 Constitutional: Negative for body aches, chills, fever, poor PO intake, weight loss, cp 19:00 Eyes: Negative for injury, pain, redness, and discharge, cp 19:00 ENT: Negative for drainage from ear(s), ear pain, sore throat, difficulty swallowing, difficulty handling secretions, 19:00 Cardiovascular: Negative for chest pain, edema, palpitations, 19:00 Respiratory: Positive for shortness of breath, 19:00 Abdomen/GI: Negative for abdominal pain, vomiting, diarrhea, constipation, 19:00 Back: Negative for pain at rest, pain with movement, 19:00 Neuro: Negative for altered mental status, dizziness, headache, numbness, weakness, 19:00 All other systems are negative, Exam: 19:05 Constitutional: The patient appears in no acute distress, alert, awake, cp non-diaphoretic, non-toxic, well developed, well nourished, 19:05 Head/Face: Normocephalic, atraumatic. cp 19:05 Eyes: Periorbital structures: appear normal, Conjunctiva: normal, no exudate, no injection, Sclera: no appreciated abnormality, Lids and lashes: appear normal, bilaterally, 19:05 ENT: External ear(s): are unremarkable, Nose: is normal, Mouth: Lips: moist, Oral mucosa: moist, Posterior pharynx: Airway: no evidence of obstruction, patent, 19:05 Chest/axilla: Inspection: normal, 19:05 Cardiovascular: Rate: normal, Rhythm: regular, Edema: is not appreciated, JVD: is not appreciated, 19:05 Respiratory: the patient does not display signs of respiratory distress, Respirations: normal, no use of accessory muscles, no retractions, labored breathing, is not present, Breath sounds: are clear throughout, no decreased breath sounds, no stridor, no wheezing, 19:05 Abdomen/GI: Inspection: abdomen appears normal, Palpation: abdomen is soft and non-tender, 19:05 Back: pain, is absent, ROM is normal, 19:05 Neuro: Orientation: to person, place \T\ time. Mentation: is normal, Motor: moves all fours, strength is normal, Sensation: is normal, 19:55 ECG was reviewed by the Attending Physician. Vital Signs: 18:41 BP 142 / 87; Pulse 86; Resp 15; Temp 98.1(O); Pulse Ox 98% on R/A; Weight 96.16 kg; ss Height 5 ft. 9 in. ; Pain 0/10; 19:00 BP 128 / 68; Pulse 87; Resp 16; Pulse Ox 97% ; me1 20:00 BP 124 / 68; Pulse 84; Resp 16; Pulse Ox 96% on R/A; me1 21:00 BP 142 / 75; Pulse 100; Resp 18; Temp 98.2; Pulse Ox 98% ; me1 21:30 BP 148 / 79; Pulse 96; Resp 17; Temp 98.4; Pulse Ox 98% ; me1 18:41 Body Mass Index 31.31 (96.16 kg, 175.26 cm) ss 18:41 Pain Scale: Adult ss MDM: 18:44 Medical Screening Exam initiated cp 19:00 Differential diagnosis: Anemia Bronchitis CHF exacerbation, Chronic Obstructive cp Pulmonary Disease pneumonia, Pneumothorax pulmonary edema, Pulmonary Embolism Unstable Angina. 21:27 Data reviewed: vital signs, nurses notes, lab test result(s), EKG, radiologic studies, cp plain films, and as a result, I will discharge patient. 21:27 Antibiotic administration: Not indicated, the patient does not have an appreciated cp infiltrate. I considered the following discharge prescriptions or medication management in the emergency department Medications were administered in the Emergency Department. See MAR. Independent interpretation of the following test(s) in the Emergency Department EKG: See my EKG interpretation above. Care significantly affected by the following chronic conditions: Diabetes, Hypertension. 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 08/20 18:54 Order name: Basic Metabolic Panel; Complete Time: 20:25 08/20 20:26 Interpretation: Normal except: CL 109; GLUC 202; BUN 23; CRE 1.51; GFR 48. 08/20 18:54 Order name: CBC with Diff; Complete Time: 20:25 08/20 20:26 Interpretation: Reviewed. 08/20 18:54 Order name: Magnesium; Complete Time: 20:25 08/20 18:54 Order name: NT PRO-BNP; Complete Time: 20:25 08/20 18:54 Order name: Troponin HS; Complete Time: 20:25 08/20 20:26 Interpretation: Reviewed. 08/20 18:54 Order name: XRAY Chest (1 view); Complete Time: 20:25 08/20 20:26 Interpretation: Report review. 08/20 18:54 Order name: Cardiac monitoring; Complete Time: 20:36 08/20 18:54 Order name: EKG - Nurse/Tech; Complete Time: 20:36 08/20 18:54 Order name: IV Saline Lock; Complete Time: 19:28 08/20 18:54 Order name: Labs collected and sent; Complete Time: 19:28 08/20 18:54 Order name: O2 Per Protocol; Complete Time: 19:28 08/20 18:54 Order name: O2 Sat Monitoring; Complete Time: 19:28 cp EC:55 Rate is 78 beats/min. Rhythm is regular. MT interval is prolonged at 244 msec. QRS cp interval is normal. QT interval is normal. T waves are Inverted in leads III, aVR. Interpreted by me. Reviewed by me. Administered Medications: 19:43 Drug: Albuterol Inhalation 2.5 mg Inhalation once Route: Inhalation; me1 20:35 Follow up: Response: No adverse reaction; Wheezing diminished me1 19:43 Drug: Ipratropium Inhalation Aerosol 0.5 mg Inhalation once Route: Inhalation; me1 20:35 Follow up: Response: No adverse reaction; Wheezing diminished me1 19:43 Drug: MethylPrednisoLONE IVP 125 mg IVP once Route: IVP; Site: right antecubital; me1 20:35 Follow up: Response: No adverse reaction me1 Disposition Summary: 08/20/24 21:27 Discharge Ordered Notes: Location: Home cp Problem: chronic cp Symptoms: have improved cp Condition: Stable cp Diagnosis - Shortness of breath cp Followup: cp - With: Juan Carlos Reddy MD - When: 1 week - Reason: Recheck today's complaints Discharge Instructions: - Discharge Summary Sheet cp - Shortness of Breath, Adult cp Forms: - Medication Reconciliation Form cp - Antibiotic Education cp - Prescription Opioid Use cp - Patient Portal Instructions cp - Leadership Thank You Letter cp Prescriptions: - NEBULIZER MACHINE - nebulize 1 ampule INHALATION route every 4-6 hours As needed; 1 unit; Refills: cp 0, Product Selection Permitted - ipratropium-albuterol 0.5 mg-3 mg(2.5 mg base)/3 mL Inhalation Solution for Nebulization - nebulize 3 milliliter INHALATION route every 4 hours as needed for shortness of cp breath; until breathing returns to target peak flow/parameters; 1 unit; Refills: 0, Product Selection Permitted - Prednisone 20 mg Oral Tablet - take 2 tablets ORAL route once daily for 5 days; 10 tablet; Refills: 0, Product cp Selection Permitted Addendum: 08/21/2024 23:49 Co-signature as Attending Physician, Faviola Hammond MD I reviewed the patient's care s d2 provided by the Advanced Practice Provider and agree with the diagnosis and treatment plan. Signatures: Dispatcher [employer] Argenis Ann RN RN ss Chacorta Duff PA PA cp Faviola Hammond MD MD sd2 Delicia Valverde RN RN me1 Corrections: (The following items were deleted from the chart) 08/20 18:54 18:54 BASIC METABOLIC PANEL+C.LAB.BRZ ordered. EDMS EDMS 18:54 18:54 CBC+H.LAB.BRZ ordered. EDMS EDMS 18:54 18:54 MAGNESIUM+C.LAB.BRZ ordered. EDMS EDMS 18:54 18:54 PROBNP+C.LAB.BRZ ordered. EDMS EDMS 18:54 18:54 Troponin High Sensitivity+C.LAB.BRZ ordered. EDMS EDMS 18:54 18:54 Chest Single View+RAD.RAD.BRZ ordered. EDMS EDMS
[2024-08-20 21:49] VITALS: O2SAT 98
[2024-08-20 21:51] VITALS: BP 148/79; TEMP 98.4
--- NOTE | 2024-08-21 13:36 | EKG ---
Test Date: 2024-08-20 Test Time: 19:49:01 Addressograph Operator: MEASUREMENT RESULTS: Intervals: Rate: 78 WY: 244 QRSD: 76 QT: 350 QTc: 399 [place]: P: 50 WY: 244 QRS: 22 T: 27 INTERPRETIVE STATEMENTS: Sinus rhythm with 1st degree AV block Cannot rule out Anterior infarct, age undetermined Abnormal ECG Compared to ECG 07/11/2024 09:04:37 Myocardial infarct finding now present Electronically Signed On 08-21-24 13:35:41 LUMBER SCALER by Herb Serna
== END 2024-08-20 21:39 | disposition home or self-care (01) ==
LOC: ER 18:22
DX: R06.02 Shortness of breath (principal); E11.9 Type 2 diabetes mellitus without complications; I10 Essential (primary) hypertension
CPT/HCPCS: 93005; 85025; 80048; 36415; 83735; 84484; 83880; 71045; 96374; 99285; J7613; J7644; J2919